=== PATIENT | male | born 1935 | race Caucasian/White ===

== ENCOUNTER → 2019-10-18 12:45 | Outpatient (BNVA) | payer MEDICARE, SELFPAY | PROVIDERS: Family Provider Registered Nurse; PCP Registered Nurse; Visit Provider Nurse Practitioner Family | DX: I10 Essential (primary) hypertension (principal); I50.22 Chronic systolic (congestive) heart failure; R00.1 Bradycardia, unspecified | CPT/HCPCS: 80048; 83880 ==

== ENCOUNTER → 2019-12-16 05:51 | Day surgery (SDC) | payer MEDICARE, SELFPAY ==
[2019-12-16] MEDS: diazePAM 5 mg Tablet 10 MG PO (06:27)
[2019-12-16 06:30] VITALS: BP 145/84; PULSE 93; RESP 16; TEMP 37; O2SAT 95
--- NOTE | 2019-12-16 07:04 | W.PM.OPSUD ---
Surgery/Procedure H&P Update DATE OF PROCEDURE: December 16, 2019 DATE H&P PERFORMED: 11/08/19 H&P UPDATE INFORMATION: I have reviewed H&P completed within last 30 days, I have examined patient prior to procedure and No changes to prior documentation PREOP DIAGNOSIS: Symptomatic varicose veins with CEAP C4a, failed conservative managment PLANNED PROCEDURE: Operation Date: 12/16/19 07:00 Proposed Procedures p Venous Ablations(Not Applicable) - Samantha Alexis MD PHYSICAL EXAM: alert, oriented x 3 and clear to auscultation bilaterally ADDITIONAL INFORMATION: This procedure doest not require sedation
[2019-12-16 08:26] VITALS: BP 136/82; PULSE 90; RESP 14; TEMP 37; O2SAT 96
--- NOTE | 2019-12-16 08:34 | P.PCN_ITS ---
Procedure Note: Date of procedure: 12/16/19 Pre-procedure diagnosis: Symptomatic varicose veins with chronic venous insufficiency/recurrent cellulitis Other Information: The insufficient saphenous vein left GSV verified by ultrasound and diagrammed on the overlying skin. The varicose tributary veins and suitable access sites were identified and mapped. The affected area prepped and draped in the usual sterile fashion. The patient was placed in reverse Trendelenburg position. Tumescent was instilled in the skin overlying the access site for local anesthesia. The vein was accessed PROXIMAL, MID, DISTAL - THIGH/CALF using ultrasound guidance and the Seldinger technique, a guidewire was introduced through the needle, which was then exchanged over the guidewire for a 7F sheath. The RF catheter was placed on the sterile field, flushed and wiped down, prepared, and connected by a sterile cable. The patient was placed in Trendelenburg position. After RF catheter position was verified by ultrasound, tumescent anesthesia was infiltrated, under ultrasound guidance, precisely into the perivenous compartment along the entire length of vein. After the RF catheter position was again confirmed with ultrasound imaging, and under direct external compression along the length of the heating element, RF energy was applied. The vein was segmentally ablated until the treatment length is completed. Device temperature was maintained at 120 +/- degrees C with an initial power level of 40W dropping to below 20W for each treatment. Total vein length treated 53 cm. . Total cycles of RF 12. Time 4 minutes and 20 seconds. Repeat ultrasound of the left great saphenous vein was performed, confirming successful treatment. The catheter and sheath were withdrawn and hemostasis established with direct pressure. After assuring hemostasis, the skin incision over the saphenous vein was closed with a bandage and graduated compression stockings was applied from the level of the foot to the most proximal length of the thigh. 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
--- NOTE | 2019-12-29 18:03 | W.PM.OPSFHP ---
Same Day Surgery H&P Indication for Procedure/HPI DATE OF PROCEDURE: December 16, 2019 CHIEF COMPLAINT/INDICATIONFOR SURGICAL PROCEDURE: Varicose vein symptomatic, venous insufficiency, failed conservative management PREOP DIAGNOSIS: Symptomatic varicose veins with CEAP C4a, failed conservative managment PLANNED PROCEDRUE: Operation Date: 12/16/19 07:00 Proposed Procedures p Venous Ablations(Not Applicable) - Samantha Alexis MD Medications/Allergies* Home Medications Medication Instructions Recorded Confirmed Type acetaminophen 325 mg tablet 650 mg PO QID PRN 05/07/19 12/15/19 History aspirin 325 mg tablet 325 mg PO DAILY tab 05/07/19 12/15/19 History ferrous gluconate 324 mg (38 mg 324 mg PO DAILY tab 05/07/19 12/15/19 History iron) tablet ivrxglwlerf-mrr-ehmobavpq-hrb tab PO DAILY tab 05/07/19 11/08/19 History 149-hyalur 500 mg-500 mg-66.7 mg tablet multivitamin 1 tab PO QAM 05/07/19 12/15/19 History naproxen sodium 220 mg tablet 220 mg PO BID PRN 05/07/19 12/15/19 History omega-3 fatty acids 1,000 mg 1,000 mg PO DAILY cap 05/07/19 12/15/19 History capsule furosemide 40 mg tablet 40 mg PO DIRECTED tab 11/08/19 12/15/19 History Allergies/Adverse Reactions Allergy/AdvReac Type Severity Reaction Status Date / Time lisinopril Allergy Unknown swelling Verified 12/16/19 06:50 spironolactone Allergy Unknown abdominal Verified 12/16/19 06:50 pain Pertinent History/Comorbid Conditions* Medical History (Updated 11/10/19 @ 18:52 by Samantha Alexis MD) Bradycardia by electrocardiography Chronic atrial fibrillation. Congestive heart failure (Unknown) The LV ejection fraction was 38% by echocardiogram Coronary artery disease Hypertension Varicose veins of bilateral lower extremities with other complications Surgical History (Updated 05/07/19 @ 12:15 by Rosa Maria Sargent MD) History of appendectomy History of hernia repair Family History (Updated 05/06/19 @ 15:16 by Stacy Ravi RN) Diabetes Social History Smoking and tobacco status: former smoker Alcohol intake: never Pertinent Exam Findings alert, oriented x 3, clear to auscultation bilaterally, regular rate & rhythm and operative site marked Recommendations Surgery/Procedure today Coding Level of Care Code 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
== END | disposition home or self-care (01) ==
PROVIDERS: PCP Registered Nurse; Visit Provider Internal Medicine Cardiovascular Disease
DX: I83.892 Varicose veins of left lower extremity with other complications (principal); I87.2 Venous insufficiency (chronic) (peripheral); R00.1 Bradycardia, unspecified; I27.20 Pulmonary hypertension, unspecified; I34.0 Nonrheumatic mitral (valve) insufficiency; Z79.82 Long term (current) use of aspirin; I11.0 Hypertensive heart disease with heart failure; I50.9 Heart failure, unspecified; I48.91 Unspecified atrial fibrillation; Z87.891 Personal history of nicotine dependence
CPT/HCPCS: 12345; 36475; C1769; C1888; C1894; J7040; J7050

== ENCOUNTER 2019-12-23 10:11 | Outpatient (CLI) | payer MEDICARE, SELFPAY ==
--- NOTE | 2019-12-23 11:00 | USCV_ITS ---
Jose Farias Age: 84 Gender: M : 1935 Exam Date: 12/23/2019 10:31 Ordering Phys: Samantha Alexis MD ([email or web address]) Technologist: Anson Monique [place] [facility] [place]: FOLLOW UP LT LEG VENOUS ABLATION HISTORY: POST ABLATION PROCEDURES: The venous duplex Doppler examination of both lower extremities was performed in the standard fashion. The following venous structures were evaluated: common femoral vein, profunda vein, proximal portion of the greater saphenous vein, superficial femoral vein, and the popliteal vein. In addition, the posterior tibial and peroneal trunk were evaluated. FINDINGS: NO DVT LT LEG NORMAL POST ABLATION STUDY ON LT. GOOD FLOW IN THE LT EPIGSTRIC COMPLETE OCCUSION OF LT GSAPH FROM PROX DOWN TO KNEE. NO DVT Echolucent spaces were noted in the lower leg in the subcutaneous tissue CONCLUSIONS No evidence of DVT in the above-mentioned identifiable veins on the left side. Patent saphenofemoral junction Patency of the inferior epigastric vein is not documented- reported as patent by the technologist The greater saphenous vein is ablated Features of fluid retention/edema in the lower leg Dr Rosa Maria Sargent MD [facility] (Electronically Signed) Final Date: 24 December 2019 15:30 S
== END 2019-12-23 10:12 | disposition home or self-care (01) ==
LOC: US 10:14
PROVIDERS: PCP Registered Nurse; Visit Provider Internal Medicine Cardiovascular Disease
DX: I83.893 Varicose veins of bilateral lower extremities with other complications (principal)
CPT/HCPCS: 93970

== ENCOUNTER → 2020-01-25 15:28 | Outpatient (BNVA) | payer MEDICARE, SELFPAY | PROVIDERS: PCP Registered Nurse; Visit Provider Orthopaedic Surgery | DX: M25.562 Pain in left knee (principal) | CPT/HCPCS: 73560; 73565 ==

== ENCOUNTER → 2020-03-17 15:30 | Outpatient (BNVA) | payer MEDICARE, SELFPAY | PROVIDERS: PCP Registered Nurse; Visit Provider Orthopaedic Surgery | DX: Z01.812 Encounter for preprocedural laboratory examination (principal); Z20.828 Contact with and (suspected) exposure to other viral communicable diseases; Z11.59 Encounter for screening for other viral diseases | CPT/HCPCS: 87635 ==

== ENCOUNTER 2020-03-21 13:58 | Observation (INO) | payer MEDICARE, SELFPAY ==
[2020-03-21] VITALS (13 sets, daily range): BP systolic 122–156; BP diastolic 67–102; PULSE 56–97; RESP 10–27; TEMP 36.1–36.8; O2SAT 90–97; BMI 31.1
--- NOTE | 2020-03-21 06:12 | XR_ITS ---
WS: [id number] Exam: XR chest 1V portable [id number] Date/Time of Exam: 03/21/2020 6:12 AM Reason For Exam: pre pacemaker insertion No priors. The heart is enlarged. Pulmonary vascularity slightly increased. Slightly blunted right costophrenic angle may represent pleural thickening or trace pleural effusion. The lungs are fully inflated. There may be a hiatal hernia present. The mediastinum and bony thorax are unremarkable. XR/XR chest 1V portable [id number] IMPRESSION: 1. Cardiac enlargement with slightly increased pulmonary vascularity. 2. Questionable hiatal hernia.
--- NOTE | 2020-03-21 07:35 | PC.NURSE ---
note Dr Sargent's office did not notify rep of pacemaker insertion. Rep called and agreed to be here at noon. Patient and daughter have been notified of change. Pt to remain down in CPRU til noon appointment.
--- NOTE | 2020-03-21 08:11 | ECG_ITS ---
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 Measurements Intervals [place] Rate: 55 P: DE: -1 QRS: -54 QRSD: 156 T: 102 QT: 467 QTc: 449 Interpretive Statements ATRIAL FIBRILLATION WITH SLOW VENTRICULAR RESPONSE WITH ABERRANT CONDUCTION OR VENTRICULAR PREMATURE COMPLEXES MARKED LEFT AXIS DEVIATION [QRS AXIS < -30] RIGHT BUNDLE BRANCH BLOCK MODERATE T-WAVE ABNORMALITY, CONSIDER LATERAL ISCHEMIA Compared to ECG 03/06/2020 09:35:08 Aberrant conduction of supraventricular beat(s) now present Myocardial infarct finding now present Sinus rhythm no longer present T-wave abnormality still present Possible ischemia still present Electronically Signed On 03-21-2020 21:53:04 LIGHTING DESIGNER by Mary Ellen Saez M.D. [email or web address] ([email or web address]).[email or web address] IncTitanX Engine Coolinghenry [email or web address].[employer]/store/OM/[id number]
--- NOTE | 2020-03-21 08:55 | W.PM.OPSUD ---
Surgery/Procedure H&P Update DATE OF PROCEDURE: March 21, 2020 DATE H&P PERFORMED: 03/16/20 H&P UPDATE INFORMATION: I have reviewed H&P completed within last 30 days, I have examined patient prior to procedure and No changes to prior documentation PREOP DIAGNOSIS: Atrial fibrillation with a symptomatic bradycardia PRIMARY INDICATION FOR PROCEDURE: Symptomatic bradycardia PLANNED PROCEDURE: Operation Date: 03/21/20 07:00 Proposed Procedures p Pacemaker Insertion R00.1 I45.8 69102(Not Applicable) - Rosa Maria Sargent MD PATIENT REASSESSED PRIOR TO SEDATION, WITH NO CHANGE NOTED: Yes PHYSICAL EXAM: alert, clear to auscultation bilaterally and regular rate & rhythm (Irregularly irregular rate and rhythm) OTHER PERTINENT EXAM FINDINGS: Alert and oriented x3. Lungs are clear. Vital signs stable. No signs of infection at the pacemaker insertion site. First heart sound is variable. Second heart sound is normal. AIRWAY EVAL/ANESTHESIA PLAN: normal airway, ASA III, Monitored Anesthesia, Local Anesthesia, Risks, benefits & alternatives of sedation and/or procedure discussed and Patient agrees to continue as planned
--- NOTE | 2020-03-21 09:08 | USCV_ITS ---
MartinanathanielJose cook Age: 84 Gender: M : 1935 Exam Date: 03/21/2020 09:18 Ordering Phys: Rosa Maria Sargent MD ([email or web address]) Technologist: Paul Robb [place] [facility] [place] PRE PACER PLACEMENT BP: 142 / 102 HR: 63 Rhythm: Sinus Technical Quality: Adequate MEASUREMENTS (Male / Female) Normal Values 2D ECHO LV Diastolic Diameter PLAX 6.2 cm 4.2 - 5.9 / 3.9 - 5.3 cm LV Systolic Diameter PLAX 5.1 cm LV Chamber Size 4.8 cm IVS Diastolic Thickness 1.5 cm 0.6 - 1.0 / 0.6 - 0.9 cm IVS Systolic Thickness 2.2 cm LVPW Diastolic Thickness 1.3 cm 0.6 - 1.0 / 0.6 - 0.9 cm LVPW Systolic Thickness 1.4 cm RV Chamber Size 4.9 cm LVOT Diameter 2.0 cm LV Ejection Fraction 2D Teich 35.4 % LV Ejection Fraction MOD 2C 56.1 % LV Ejection Fraction 2C AL 61.5 % LA Diameter 4.3 cm LA Width 4.4 cm LA Height 6.3 cm RA Width 5.7 cm RA Height 5.7 cm Aorta at Sinotubular Diameter 3.6 cm M-MODE LV Diastolic Diameter MM 6.5 cm 4.2 - 5.9 / 3.9 - 5.3 cm LV Systolic Diameter MM 5.4 cm LV Ejection Fraction MM Teich 34.9 % IVS Diastolic Thickness MM 1.3 cm 0.6 - 1.0 / 0.6 - 0.9 cm IVS Systolic Thickness MM 1.8 cm LVPW Diastolic Thickness MM 1.3 cm 0.6 - 1.0 / 0.6 - 0.9 cm LVPW Systolic Thickness MM 1.4 cm RV Diastolic Diameter MM 2.5 cm Aortic Annulus Diameter 3.4 cm LA Ao Ratio MM 1.6 MV E Point Septal Separation 1.4 cm DOPPLER TR Peak Velocity 330.5 cm/s TR Peak Gradient 43.7 mmHg TR Mean Velocity 225.4 cm/s TR Mean Gradient 23.2 mmHg TR Velocity Time Integral 113.6 cm Right Atrial Pressure 3.0 mmHg Pulmonary Artery Systolic Pressu 46.7 mmHg FINDINGS Left Ventricle Mildly increased left ventricular cavity size. Diffuse hypokinesia of the left ventricle with an ejection fraction around 39% Right Ventricle Normal right ventricular size and systolic function. Right Atrium Mildly increased right atrial size. Left Atrium Mildly increased left atrial size. Mitral Valve Thickened mitral valve. Moderate mitral valve regurgitation. Aortic Valve Thickened aortic valve. Tricuspid Valve Afbc-yo-msqbcfxh tricuspid valve regurgitation. Pulmonic Valve Trace pulmonary valve regurgitation. Mild pulmonary hypertension with an estimated pulmonary artery peak systolic pressure of 47 mmHg Pericardium No pericardial effusion. Aorta Normal aortic annulus size. CONCLUSIONS Diffuse hypokinesia of the left ventricle with an ejection fraction around 39%. Mildly increased left ventricular cavity size. Mild biatrial enlargementThickened mitral valve. Moderate mitral valve regurgitation. Thickened aortic valve. Uhug-or-elobtxsj tricuspid valve regurgitation. Mild pulmonary hypertension with an estimated pulmonary artery peak systolic pressure of 47 mmHg. There is no pericardial effusion. There are no intracardiac masses. Compared to the study from 10/29/2018, there may not be a significant change Dr Rosa Maria Sargent MD FAC (Electronically Signed) Final Date: 21 March 2020 17:43 S
--- NOTE | 2020-03-21 13:32 | PM.OP ---
Operative Report Date of procedure: March 21, 2020 Pre-op Diagnosis: Atrial fibrillation with a symptomatic bradycardia Procedure: LOCATION: Cardiac Drilling Field Professional PREOPERATIVE DIAGNOSES: Atrial fibrillation with a symptomatic bradycardia. POSTOPERATIVE DIAGNOSES: Same. COMPLICATIONS: None. ESTIMATED BLOOD LOSS: Around 5 milliliters. BRIEF HISTORY: This is an 84-year-old white male with a history of chronic atrial fibrillation presents with complaints of generalized weakness along with multiple other medical issues. He is known to have congestive heart failure and mitral and tricuspid regurgitation. He was found to be bradycardic with a frequent prolonged pauses of more than 3 seconds on the event monitor. For further management of his condition, permanent pacemaker mentation was recommended. A single-chamber permanent pacemaker implantation was thought to be appropriate because of the chronic atrial fibrillation The procedure was explained to the patient in detail with the risks and benefits. The risks of bleeding, hematoma, vascular injury, infection, pneumothorax, myocardial perforation and other concomitant complications were explained in detail, which the patient understood well and consented to proceed. PROCEDURE DESCRIPTION: The patient was brought to the Cardiac Catheterization Lab. The left and the right side of the neck and the subclavian area were cleaned and draped in a sterile fashion. 1% Xylocaine was used as the local anesthetic agent. A left subclavian venous access was obtained using a micropuncture needle system. Under venographic guidance, the patient was injected with 20 milliliters of Omnipaque through the left antecubital vein. A two-inch long incision was made 2.0 centimeters below the midclavicular region. By sharp and blunt dissection, a pacemaker pocket was made. Over the guidewire, a 7-Citizen Of [place] venous sheath with dilator was advanced. The venous dilator and the guidewire were taken out. A screw-in ventricular lead was advanced through the venous sheath and was positioned towards the right ventricle. Under fluoroscopy guidance, the ventricular lead was positioned toward the right ventricular apex. Good pacing and sensing thresholds were obtained. The lead was secured to the endocardium by advancing the helix. The stability of the lead was tested by gentle twisting movements and also by asking the patient to take some deep breaths and cough. The venous sheath was peeled off, at this time. The lead was secured to the pectoralis fascia, by suturing with 1-0 Surgilon. The pacemaker pocket was copiously irrigated with vancomycin solution. Complete hemostasis was achieved. Sponge counts were confirmed. The leads were attached to a Medtronic generator. The leads were positioned behind the generator and the generator was attached to the pectoralis fascia by suturing with 0-Surgilon. The pocket was closed in layers. Skin was approximated using 4-0 Vicryl. IMPLANTED DEVICES: VENTRICULAR LEAD: Model number: 5076/58 Serial number: [id number](MR conditional) Make: Medtronic GENERATOR Brand: Elsie XT SR MRI SureScan Model number: [id number] Serial number: [id number] Make: Medtronic IMPLANTATION DATA: With the pacing system analyzer, the R wave sensing was 10.1 millivolts with a lead impedance of 745 and a pacing threshold was 1.0 volts at 0.5 milliseconds. Through the device, the R-wave sensing was 7.4 millivolts with a lead impedance of 570 and a pacing threshold was 0.5 volts at 0.4 milliseconds. The pacemaker was set for VVI mode with a minimum rate of 60 A pressure dressing was applied over the pacemaker site. The patient was transferred to the Medical Floor in stable condition. A chest x-ray was ordered to confirm the lead position and also to rule out any pneumothorax.
--- NOTE | 2020-03-21 14:00 | PC.NURSE ---
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 Pt alert and oriented. Eye glasses, upper and lower dentures and bial hearing aides noted. Pt is hard of hearing. Pressure dressing C, D and I. Shoulder Immobilizer on. Two peripheral IVs noted. Left upper arm (near elbow) and Right wrist. NS infusing into right wrist without difficulty.
[2020-03-21] MEDS: FUROsemide 40 mg Tablet PO (15:56)
[2020-03-21] MEDS: potassium chloride ER 20 mEq Tablet PO (17:42)
--- NOTE | 2020-03-21 18:39 | PC.NURSE ---
Shift summary: Pt post pacemaker implant. VSS . He has remained on bedrest as ordered. NO c/o of pain Shoulder immobilizer has remained on. Daughter, Juany, came to visit at visiting hours.. Pt has spent most of the afternoon resting with eyes closed after he had a late lunch. He voids without difficulty.
--- NOTE | 2020-03-21 18:47 | PC.NURSE ---
Report given to ALEXANDRIA Mcclelland
--- NOTE | 2020-03-21 19:55 | PC.NURSE ---
Rounding: Patient resting in bed shoulder immbolizer in place. patient alert and oriented. patient denies any needs at this time.
[2020-03-22 00:17] VITALS: BP 140/84; PULSE 60; RESP 15; TEMP 36.6; O2SAT 94
[2020-03-22] MEDS: sodium chloride 0.9% 1,000 ML 75 ML IV ×2 (01:35→08:09)
--- NOTE | 2020-03-22 04:08 | PC.NURSE ---
Called Dr. Alexis about patient attempting to use a bed isaac to have a BM with no success. Patient had requested just to get up to use a bedside commode. Dr. Alexis said it was ok to get patient up so he could use the the bathroom just keep his immobilizer in place. read back verbal order.
--- NOTE | 2020-03-22 04:36 | PC.NURSE ---
Pacemaker check completed
[2020-03-22 04:37] VITALS: BP 118/74; PULSE 134; RESP 19; TEMP 36.8; O2SAT 91
--- NOTE | 2020-03-22 06:00 | ECG_ITS ---
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: : 1935 Requested By: Rosa Maria Sargent Order Number: [id number] Reading MD: CHRISTINA PENNY Measurements Intervals [place] Rate: 69 P: [place]: QRS: -74 QRSD: 188 T: 88 QT: 435 QTc: 468 Interpretive Statements ELECTRONIC VENTRICULAR PACEMAKER ABNORMAL RHYTHM ECG WARNING: DATA QUALITY MAY AFFECT INTERPRETATION Compared to ECG 03/21/2020 08:18:41 Atrial fibrillation no longer present Aberrant conduction of supraventricular beat(s) no longer present Ventricular premature complex(es) no longer present Left-axis deviation no longer present Right bundle-branch block no longer present T-wave abnormality no longer present Possible ischemia no longer present Electronically Signed On 03-22-2020 19:40:05 REFLECTOR DRILLER AND DEBURRER by CHRISTINA PENNY [id number]
--- NOTE | 2020-03-22 06:29 | PC.NURSE ---
Called Dr. Alexis about patient having sustaining runs of Afib. went over home medications and vital signs. Orders received for metoprolol 12.5 mg BID and first dose now. read back verbal order.
[2020-03-22] MEDS: metoprolol tartrate 25 mg Tablet 12.5 MG PO (06:33)
--- NOTE | 2020-03-22 06:36 | PC.NURSE ---
heartrate running 115 to 130's sustained in afib
[2020-03-22 08:00] VITALS: BP 110/88; PULSE 60; RESP 26; TEMP 36.1; O2SAT 94
[2020-03-22] MEDS: aspirin 325 mg Tablet PO (08:08)
[2020-03-22] MEDS: omega-3 fatty acids 1,000 mg Capsule 1000 MG PO (08:08)
[2020-03-22] MEDS: amlodipine 5 mg Tablet PO (08:09)
[2020-03-22] MEDS: multivitamin therapeutic Tablet 1 TAB PO (08:09)
[2020-03-22] MEDS: potassium chloride ER 20 mEq Tablet PO (08:09)
[2020-03-22] MEDS: ferrous gluconate 324 mg Tablet PO (08:09)
[2020-03-22] MEDS: FUROsemide 40 mg Tablet PO ×2 (08:09→16:09)
--- NOTE | 2020-03-22 08:48 | XR_ITS ---
WS: [id number] Exam: XR chest 1V portable [id number] Date/Time of Exam: 03/22/2020 8:48 AM Reason For Exam: Post pacemaker Comparison 03/21/2020. Consolidating infiltrate has developed in the left retrocardiac region since the previous study. The heart is enlarged but unchanged in size. Again noted is probable hiatal hernia. No pleural effusions or pneumothorax. Pulmonary vascularity mildly increased. A cardiac pacer has been placed with the bat addy pack over the left chest. XR/XR chest 1V portable [id number] IMPRESSION: 1. Interval development of the infiltrate in the left retrocardiac region suspi cious for left lower lobe pneumonia. 2. Cardiac pacer placement since previous exam. 3. Suspect large hiatal hernia.
[2020-03-22 10:57] VITALS: BP 125/80; PULSE 59; RESP 24; TEMP 36.3; O2SAT 95
[2020-03-22 11:32] VITALS: BP 125/80; PULSE 59; RESP 24; TEMP 36.3; O2SAT 95
--- NOTE | 2020-03-22 13:28 | PC.CHAP ---
Pastoral Care Encounter/Spiritual Assessment Type of Contact [] Declined weathercaster visit [] Patient/Family/Request visit [] Outpatient visit [] Follow-up visit [] Physician referral [] Code/Alert [X] Routine visit [] Staff referral [] Actively dying [] Patient sleeping [] Family support [] [] Out of room [] Palliative care [] [] Receiving care in room [] Pre-surgical visit [] Trauma [] Long length of stay [] ICU visit [] Other: Relational/Emotional Strength [] Patient feels connected with others/family/visitors/staff [] Distress [] Loneliness/isolation [] Abandonment Spirituality of Patient [] Person of Coco [] Attends Christian of their Coco [] Believes in Prayer [] Reads Bible or Voodoo materials [] There are Spiritual issues to be addressed Ux Developer Designer Interventions [] Prayer [] Active listening [] Non-anxious presence [] Spiritual/emotional support [] Crisis/trauma care [] Spiritual counseling [] Bereavement support [] Provided bereavement packet [] Provided Bible/devotional materials [] Provided toy/stuffed animal, coloring book to patient or family member [] Provided Communion [] Anointing/[place] [] Salvation [] Completed spiritual assessment [] Other: Impact on Illness or Injury [] Angry [] Fearful [] Anxious [] Often cries [] Exhaustion [] Unable to work [] Unable to attend pentecostal [] Unable to walk/stand [] Unable to read [] Unable to drive [] Unable to eat/drink [] Unable to sleep [] Unable to be with family [] Patient intubated [] Other: Summary Time spent with patient
--- NOTE | 2020-03-24 19:18 | W.PM.OPSUD ---
Surgery/Procedure H&P Update DATE OF PROCEDURE: March 21, 2020 DATE H&P PERFORMED: 03/16/20 H&P UPDATE INFORMATION: I have reviewed H&P completed within last 30 days, I have examined patient prior to procedure and No changes to prior documentation PREOP DIAGNOSIS: Atrial fibrillation with a symptomatic bradycardia PLANNED PROCEDURE: Operation Date: 03/21/20 07:00 Proposed Procedures p Pacemaker Insertion R00.1 I45.8 [id number](Not Applicable) - Rosa Maria Sargent MD PATIENT REASSESSED PRIOR TO SEDATION, WITH NO CHANGE NOTED: Yes PHYSICAL EXAM: alert and clear to auscultation bilaterally AIRWAY EVAL/ANESTHESIA PLAN: normal airway, see other exam findings, ASA II, Monitored Anesthesia, Local Anesthesia, Risks, benefits & alternatives of sedation and/or procedure discussed and Patient agrees to continue as planned
== END 2020-03-22 16:50 | disposition home or self-care (01) ==
LOC: CSU 14:00
PROVIDERS: Admitting Provider Internal Medicine Cardiovascular Disease; PCP Registered Nurse; Visit Provider Internal Medicine Cardiovascular Disease
DX: I48.20 Chronic atrial fibrillation, unspecified (principal); I45.10 Unspecified right bundle-branch block; R00.1 Bradycardia, unspecified; Z79.82 Long term (current) use of aspirin; I25.10 Atherosclerotic heart disease of native coronary artery without angina pectoris; Z87.891 Personal history of nicotine dependence; I11.0 Hypertensive heart disease with heart failure; I50.9 Heart failure, unspecified
CPT/HCPCS: 12345; 33207; 36415; 71045; 93005; 93308; 96361; 96365; 97166; C1769; C1786; C1894; C1898; G0378; J0690; J2250; J3010; J7030; J7050; Q9967

== ENCOUNTER → 2020-05-23 15:49 | Outpatient (BNVA) | payer MEDICARE, SELFPAY | PROVIDERS: PCP Registered Nurse; Visit Provider Orthopaedic Surgery | DX: R52 Pain, unspecified (principal); Z11.59 Encounter for screening for other viral diseases | CPT/HCPCS: 87635 ==

== ENCOUNTER 2020-05-29 12:22 | Observation (INO) | payer MEDICARE, SELFPAY ==
[2020-05-15 13:31] VITALS: BMI 29.7
--- NOTE | 2020-05-15 14:17 | ANES.PREANE2 ---
Pre-Anesthetic Assessment Pre-Anesthetic Assessment: Height/Weight: Height 1.8 m Weight 96.615 kg Preop Diagnosis: Osteoarthritis left knee Proposed Procedure: Operation Date: 05/29/20 10:40 Proposed Procedures p right Total Knee Arthroplasty 54328 m17.12(Right) - Salvador Jurado MD Was Beta Debra taken within 24 hours: N/A Social: Social History: No alcohol and No tobacco Exam: Pre-Anes Outpt Exam: alert, oriented x 3, clear to auscultation bilaterally and regular rate & rhythm Airway: Submandibular: WNL Cervical ROM: WNL MP: 2 Dentition: False CV/HEM: CV/HEM: Arrythmia, CHF, HTN and Murmur Comments: Pacemaker, MR, Pulmonary HTN : : Chronic renal Insufficiency Hepatic: Hepatic: None reported GI: GI: None reported Metabolic: Metabolic: Hyperlipidemia Musc/skel: Musc/skel: OA/DJD Neuropsych: Neuropsych: None reported Anesthetic Plan: ASA status: 4 Anesthesia: Regional (specify below) Other: SAB/adductor blk Risk of > 500 ml blood loss (7ml/kg in children): No PFSH Anesthesia PFSH: Medical History Bradycardia by electrocardiography Chronic atrial fibrillation. Congestive heart failure (Unknown) The LV ejection fraction was 38% by echocardiogram Coronary artery disease Hypertension Symptomatic bradycardia Varicose veins of bilateral lower extremities with other complications Surgical History History of appendectomy History of hernia repair Family History Other Diabetes Social History Smoking and tobacco status: former smoker Alcohol intake: never Data Anesthesia Cardiac Studies: No Data to Display
[2020-05-15 15:13] LABS: Basophils % 0.5 %; Eosinophils # 0.4 10^3/uL (0.0-0.8); Eosinophils % 6.2 %; Hematocrit 38.6 % (42.0-52.0); Hemoglobin 11.8 g/dL (11.7-16.6); Lymphocytes % 17.2 %; Mean Corpuscular HGB Conc 30.6 g/dL (30.0-36.0); Mean Corpuscular Hemoglobin 31.6 pg (28.0-34.0); Mean Corpuscular Volume 103.5 fL (80-94); Mean Platelet Volume 11.3 fL (7.4-10.4); Monocytes # 0.7 10^3/uL (0.2-0.9); Monocytes % 11.2 %; Neutrophils # 3.89 10^3/uL (1.8-7.7); Neutrophils % 64.7 %; Nucleated Red Blood Cells % 0 %; Platelet Count 173 10^3/cmm (130-400); Red Blood Count 3.73 10^6/uL (4.1-5.3); Red Cell Distribution Width 13.4 % (12.1-15.1)
[2020-05-15 15:38] LABS: Alanine Aminotransferase 33 U/L (0-41); Albumin Level 3.6 g/dL (3.5-5.2); Alkaline Phosphatase 101 IU/L (40-130); Anion Gap 11.9 (5-19); Aspartate Amino Transferase 25 U/L (0-40); Blood Urea Nitrogen 27 mg/dL (8-23); Calcium 9.3 mg/dL (8.5-10.5); Carbon Dioxide 29 mmol/L (22-29); Chloride 107 mmol/L (98-107); Globulin 2.7 g/dL (1.3-4.6); Glucose 94 mg/dL (65-115); Osmolality Calculated 303 mOsm/kg (285-295); Potassium 3.9 mmol/L (3.5-5.1); Sodium 144 mmol/L (136-145); Total Bilirubin 0.7 mg/dL (0.15-1.2); Total Protein 6.3 g/dL (6.6-8.7)
[2020-05-29] VITALS (17 sets, daily range): BP systolic 90–169; BP diastolic 49–93; PULSE 59–74; RESP 10–22; TEMP 35.8–37.1; O2SAT 88–99
--- NOTE | 2020-05-29 | XR_ITS ---
WS: [id number] Exam: XR knee LT 1-2V 76979 Date/Time of Exam: 05/29/2020 12:00 AM Reason For Exam: POST OP Comparison 01/25/2020. A total knee prosthesis is been placed and is in excellent position. Postoperative changes in the adj acent soft tissues. XR/XR knee LT 1-2V 20055 IMPRESSION: 1. Total knee replacement in excellent position.
[2020-05-29] MEDS: oxyCODONE 20 mg ER (12 HR) Tablet PO (08:01)
[2020-05-29] MEDS: sodium chloride 0.9% 1,000 ML 30 ML IV (08:01)
[2020-05-29] MEDS: CELEcoxib 200 mg Capsule 400 MG PO (08:02)
[2020-05-29] MEDS: gabapentin 300 mg Capsule PO ×2 (08:03→18:02)
[2020-05-29] MEDS: acetaminophen 500 mg Tablet 1000 MG PO ×2 (08:03→15:34)
--- NOTE | 2020-05-29 08:35 | P.ANESUD_ITS ---
Pre-Anesthetic Update Pre-Anesthetic Assessment: Date of Surgery/Procedure: 05/29/20 Preop Vanesa gnosis: Osteoarthritis left knee Proposed Procedure: Operation Date: 05/29/20 09:35 Proposed Procedures p Total Knee Arthroplasty(Left) - Salvador Jurado MD Any changes to Pre-Anesthetic Assessment?: No Last Intake: Intake Last Liquid Date 05/28/20 Last Liquid Time 18:00 Last Solid Date 05/28/20 Last Solid Time 18:00 Last Intake: 00:00 Vitals: Temperature 98.7 F 05/29/20 07:38 Temperature Source Temporal Artery S can 05/29/20 07:38 Pulse Rate 74 05/29/20 07:38 Pulse Rhythm 05/29/20 07:45 Pulse Strength 3+ Normal 05/29/20 07:45 Respiratory Rate 18 05/29/20 08:01 Respiratory Effort 05/29/20 08:01 Respiratory Depth Normal 05/29/20 08:01 Blood Pressure 169/93 05/29/20 07:38 Blood Pressure Martha n 118 05/29/20 07:38 Pulse Oximetry 95 05/29/20 07:38 Oxygen Delivery Me thod 05/29/20 07:45 Exam: Pre-Anes Outpt Exam: alert, oriented x 3, clear to auscultation bilaterally and regular rate & rhythm Cardiac Studies: No Data to Display
--- NOTE | 2020-05-29 09:29 | W.PM.OPSFHP ---
Same Day Surgery H&P Indication for Procedure/HPI DATE OF PROCEDURE: May 29, 2020 CHIEF COMPLAINT/INDICATIONFOR SURGICAL PROCEDURE: Osteoarthritis left knee there for total knee arthropod PREOP DIAGNOSIS: Osteoarthritis left knee PLANNED PROCEDRUE: Operation Date: 05/29/20 09:35 Proposed Procedures p Total Knee Arthroplasty(Left) - Salvador Jurado MD Mr. Tinsley is an 85-year-old male with severe pain and disability due to osteoarthritis of the left knee. He has had multiple falls as a result pain and instability in his knee. He has failed medical management including Tylenol and anti-inflammatories. He has undergone an extensive preoperative clearance work-up ultimately leading to a pacemaker placement. He has been cleared by cardiology is now here for total knee arthroplasty Medications/Allergies* Home Medications Medication Instructions Recorded Confirmed Type acetaminophen 325 mg tablet 650 mg PO QID PRN 05/07/19 05/29/20 History ferrous gluconate 324 mg (38 mg 324 mg PO DAILY tab 05/07/19 05/29/20 History iron) tablet iarxfmqvrrn-pqs-ndyqbqdfs-hrb 1 tab PO DAILY tab 05/07/19 05/29/20 History 149-hyalur 500 mg-500 mg-66.7 mg tablet multivitamin 1 tab PO QAM 05/07/19 05/29/20 History naproxen sodium 220 mg tablet 220 mg PO BID PRN 05/07/19 05/29/20 History omega-3 fatty acids 1,000 mg 1,000 mg PO DAILY cap 05/07/19 05/29/20 History capsule Metamucil 1 tbsp PO DAILY 03/06/20 05/29/20 History furosemide 40 mg tablet 20 mg PO BID tab 03/29/20 05/29/20 History latanoprost 0.005 % eye drops 1 drp OPHTHALMIC (EYE) DAILY 03/29/20 05/29/20 History amlodipine 5 mg PO DAILY 05/15/20 05/29/20 History aspirin 325 mg tablet 81 mg PO DAILY tab 05/16/20 05/29/20 History Allergies/Adverse Reactions Allergy/AdvReac Type Severity Reaction Status Date / Time lisinopril Allergy Unknown swelling Verified 05/29/20 07:30 spironolactone Allergy Unknown abdominal Verified 05/29/20 07:30 pain Current Medications: Generic Name Dose Route Start Last Admin Trade Name Freq PRN Reason Stop Dose Admin Sodium Chloride 1,000 mls @ 30 mls/hr 05/29/20 07:30 05/29/20 08:01 Sodium Chloride 0.9% IV 05/30/20 07:29 30 mls/hr .Q24H VITALY Administration Pertinent History/Comorbid Conditions* Medical History (Updated 03/13/20 @ 18:32 by Samantha Alexis MD) Bradycardia by electrocardiography Chronic atrial fibrillation. 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
[2020-05-29] MEDS: ketorolac 30 mg/mL INJ IM (11:02)
[2020-05-29] MEDS: EPINEPHrine 1 mg/mL INJ XX (11:03)
[2020-05-29] MEDS: tranexamic acid 1,000 mg/10mL SDV 1000 MG IRRIGATION (11:06)
--- NOTE | 2020-05-29 12:18 | ANES.PROC ---
Anesthesia Procedures Procedure/Date: 05/29/20 Nerve Block ^: Nerve Block 1: Main Anesthesia: spinal anesthesia block Time Out Performed: Yes Consent: requested by attending/covering physician, from patient, risks and benefits reviewed and patient agrees to proceed Nerve block location: adductor canal (left) Anesthesia monitors applied: pulse oximetry, EKG, BP cuff and oxygen Nerve block position: supine Anesthetic Used: ropivicaine 0.5% Amount of anesthesia used (mL): 20 Ultrasound used to: recognize landmarks Nerve Stimulator Used?: No Interscalene/Femoral BLK: 4 stimuplex 21 g needle used for position and inplane approach, visualize local anesthetic spread and no vascular puncture identified Injection: neg aspiration of heme Patient Tolerated Procedure: well Complications: none
--- NOTE | 2020-05-29 12:41 | P.OP_ITS ---
Operative Report Date of procedure: May 29, 2020 Pre-op Diagnosis: Osteoarthritis left knee Post-op diagnosis: same Post-op Findings: Same Procedure Done: Left total knee arthroplasty Implants: Blaze total knee arthroplasty components were used includin) Size 4 triathalon cruciate substituting femoral component 2) Size 4 universal tibial component 3) 35 mm /10 mm thickness Tritanium asymetric patella 4) Size 4/13 mm thickness cruciate substituting tibial bearing insert Pathology: none sent Surgeon: Salvador Jurado Anesthesia: Nerve Block (Spinal, adductor canal block) Estimated blood loss (mL): 150 Findings: The patient had tricompartmental degenerative disease with hypoplasia of the lateral femoral condyle and severe tibial wear with resulting valgus deformity. Condition: stable Disposition: PACU Procedure: The patient was taken to the operating room. Patient was given 1 g of tranexamic acid . The above anesthesia provided by the anesthesia service. A timeout was performed. The patient was prepped and draped in the usual fashion with the lower extremity exposed. A anterior incision was made, midline, from a point proximal to the patella to the distal tibial tubercle. The knee was entered through a medial parapatellar approach. The patella could be displaced laterally and the knee flexed. The patellar fat pad was resected to provide better visibility. Retractors were placed medially and laterally adjacent to the tibial plateau. The femoral canal was drilled in line with the longitudinal axis of the femur. Intramedullary femoral guide for used to make a distal femoral cut in 5 degrees of valgus, resecting 8 mm from the more prominent condyle. Next the extra m edullary tibial guide was placed in alignment with the longitudinal axis of the tibia. The cutting guides were set to remove just over just over 2 mm from the low lateral tibial plateau. The proximal tibia was then cut. The femoral measuring guide was then placed over the distal femur. Rotation was verified checking the relationship of the guide to the condyle and the trochlear groove. The femur was measured and cut for the desired femoral component. The desired tibial baseplate was then chosen. A trial reduction with the femur tibial baseplate and polyethylene was done, assuring that the knee was stable throughout full motion. .The tibia was prepared for the tibial baseplate. Patellar thickness was then measured. The patella was cut removing articular cartilage and prepared for appropriate size patellar button. All surfaces were cleaned with pulsatile lavage. The femur tibia and patella were then cemented into place. The posterior capsule and collateral ligaments were then injected with a solution of 100 mL of 0.2% ropivacaine, 1 mL of a 1:1000 epinephrine solution, and 30 mg of Toradol. Final polyethylene component was then snapped into place into the tibia. 2 grams of tranexamic acid were applied to the wound. The tourniquet was deflated. The tranxanemic acid was left contact with the knee for 5 minutes before the knee was irrigated with saline. The extensor retinaculum was closed with a running 1 Stratafix.. The subcutaneous tissues were closed with 2-0 Vicryl and the skin was closed with a running 3-0 Stratafix. The wound was covered with a Dermabond Prinio dressing. It was covered with 4xrs and a compressive Tubigauae was applied. The patient was taken to recovery room in stable condition.
--- NOTE | 2020-05-29 13:04 | SUR.PHASEI ---
PT AWAKE ALERT TALKATIV PT IS VERY [place], PT CAN MOVE BILAT TOES, SPINAL LEVAL AT T-12 LEVEL, VSS IV PATENT AT SLOW RATE. X RAY HERE. PT TAKING OCC ICE CHIPS.
--- NOTE | 2020-05-29 13:05 | SUR.PHASEI ---
LT FOOT SWOLLEN +2 PINK WARM WITH CAP REFILL LESS THAN 3 SECONDS.
--- NOTE | 2020-05-29 13:10 | SUR.PHASEI ---
PT WITH CERNA TO DD YELLOW URINE NOTED TO TUBING AND BAG IN SMALL AMT APPROX 20 ML
--- NOTE | 2020-05-29 13:23 | ANE.PACU2 ---
Inpatient post-anesthesia follow up: Airway intact: Yes Vital signs: Temperature 97.3 F Pulse Rate 64 Respiratory Rate 10 Blood Pressure 118/65 Pulse Oximetry 96 Oxygen Delivery Me thod Nasal Cannula Oxygen Flow Rate 3 Fraction of Inspir ed Oxygen Hydration adequate: Yes Nausea and vomiting: No Pain level: 1 Mental status: Baseline
[2020-05-29] MEDS: sodium chloride 0.9% 1,000 ML 100 ML IV (14:38)
[2020-05-29] MEDS: sennosides-docusate Tablet 2 TAB PO (18:01)
[2020-05-29] MEDS: FUROsemide 20 mg Tablet PO (18:02)
[2020-05-29] MEDS: potassium chloride ER 20 mEq Tablet PO (18:02)
[2020-05-29] MEDS: apixaban 5 mg Tablet PO (18:02)
[2020-05-29] MEDS: CELEcoxib 200 mg Capsule PO (20:22)
[2020-05-29] MEDS: latanoprost 0.005% Op Soln 2.5 mL Btl 1 DROP EYE-BOTH (20:22)
[2020-05-30] VITALS (7 sets, daily range): BP systolic 99–136; BP diastolic 59–73; PULSE 52–79; RESP 16–18; TEMP 36.4–36.9; O2SAT 92–98
[2020-05-30] MEDS: acetaminophen 500 mg Tablet 1000 MG PO ×3 (01:35→16:22)
[2020-05-30 02:40] LABS: Hemoglobin 10.9 g/dL (11.7-16.6)
--- NOTE | 2020-05-30 06:33 | PC.NURSE ---
NEUROVASCULAR ASSESSMENT PEDAL PULSES DOPPLED THROUGHOUT SHIFT - STRONG PULSE NOTED TO DOPPLER
[2020-05-30] MEDS: ferrous gluconate 324 mg Tablet PO (08:02)
[2020-05-30] MEDS: potassium chloride ER 20 mEq Tablet PO (08:02)
[2020-05-30] MEDS: aspirin 81 mg EC Tablet PO (08:02)
[2020-05-30] MEDS: sennosides-docusate Tablet 2 TAB PO (08:02)
[2020-05-30] MEDS: amlodipine 5 mg Tablet PO (08:02)
[2020-05-30] MEDS: omega-3 fatty acids 1,000 mg Capsule 1000 MG PO (08:03)
[2020-05-30] MEDS: gabapentin 300 mg Capsule PO (08:03)
[2020-05-30] MEDS: apixaban 5 mg Tablet PO (08:03)
[2020-05-30] MEDS: CELEcoxib 200 mg Capsule PO (08:03)
[2020-05-30] MEDS: FUROsemide 20 mg Tablet PO (08:03)
[2020-05-30] MEDS: psyllium powder Pkt 1 PACKET PO (08:04)
--- NOTE | 2020-05-30 15:11 | PM.DCS ---
Discharge Providers Date of Admission: 05/29/20 12:22 Date of Discharge: May 30, 2020 Attending Provider at Admission: Salvador Jurado MD Attending Provider at Discharge: Salvador Jurado MD Primary Care Provider: ERICKA Engel Diagnoses at Discharge Discharge Diagnosis (1) Status post left knee replacement: Status: Acute (2) Osteoarthritis of left knee: Status: Resolved Reason for Visit Reason for Visit: left total knee arthroplasty Hospital Course Hospital Course The patient was admitted after elective left total knee arthroplasty. Postoperatively he made excellent progress. After his second therapy session on the first postoperative day he was independent with his walker. He was managed with aspirin and foot pumps for DVT prophylaxis. He remained hemodynamically stable. His pain was adequately controlled with medications. Physical Exam Narrative: EXAM NARRATIVE: On the day of discharge his knee incision was clean. They had no drainage. There is minimal swelling in the thigh and knee and the calf. No distal neurovascular deficits were noted Urinary Catheter Management^: F: Cath Placed During This Visit: yes, but has since been removed by the nurse Reason for Continuing Indwelling Catheter: Required Immobilization for Trauma or Surgery or Anesthesia Urinary Catheter Date of Insertion: 05/29/20 Urinary Catheter Time of Insertion: 10:30 Date Urinary Catheter Removed: 05/30/20 Time Urinary Catheter Discontinued: 06:06 Discharge Data Data Completed and Pending: Completed Studies During Hospitalization Category Date Time Status XR knee LT 1-2V 7 3560 Routine Exams 05/29/20 Completed Labs from last 24 hours 05/30/20 02:12 Hgb 10.9 L Vitals: Last Vital Signs Temp 98.5 F 05/30/20 12:00 Pulse 58 L 05/30/20 12:09 Resp 16 05/30/20 12:09 BP 100/61 05/30/20 12:00 Pulse Ox 92 05/30/20 12:09 Discharge Plan Discharge Patient Disposition: Home Condition: Stable Prescriptions: New oxycodone 5 mg Tablet 5 mg PO Q4H PRN (Reason: Moderate Pain) 7 Days Qty: 30 RF: 0 gabapentin 300 mg Capsule 300 mg PO BID 7 Days Qty: 14 RF: 0 celecoxib 200 mg Capsule 200 mg PO Q12H 15 Days Qty: 30 RF: 0 Continued furosemide 40 mg tablet 20 mg PO BID RF: 0 latanoprost 0.005 % drops 1 drp ophthalmic (eye) DAILY RF: 0 naproxen sodium [Aleve] 220 mg tablet 220 mg PO BID PRN (Reason: Pain) RF: 0 multivitamin Tablet 1 tab PO QAM RF: 0 gwbkcncw-egl-[id number] [Welmhe-Ngdeu-ZVE (with antiox)] 500-500-66.7 mg tablet 1 tab PO DAILY RF: 0 ferrous gluconate 324 mg (38 mg iron) tablet 324 mg PO DAILY RF: 0 acetaminophen [Tylenol] 325 mg tablet 650 mg PO QID PRN (Reason: Pain) RF: 0 omega-3 fatty acids 1,000 mg capsule 1,000 mg PO DAILY RF: 0 potassium chloride [Klor-Con M20] 20 mEq tablet,ER particles/crystals 20 meq PO BID Qty: 180 RF: 3 mupirocin 2 % ointment 1 applic topical BID Qty: 22 RF: 0 apixaban 5 mg tablet 5 mg PO BID Qty: 60 RF: 3 aspirin 325 mg tablet 81 mg PO DAILY RF: 0 Metamucil 3.4 gram/5.4 gram Powder 1 tbsp PO DAILY RF: 0 amlodipine 5 mg tablet 5 mg PO DAILY RF: 0 Discharge Orders: Discharge Order (Routine); Ordered 05/30/20 Ordered By: Salvador Jurado Referrals: Salvador Jurado MD [Physician] - 06/13/20 1:30 pm Discharge Activity: Limit activity as instructed Activity Restrictions/Additional Instructions: Okay to shower Keep Tubigauze sleeve in place for swelling. Okay to remove for hygiene. Apply FirstIce up to 20 min/hr for pain and swelling Take Celebrex twice a day for the next 15 days for pain , discontinue other anti-inflammatories Take Neurontin twice a day for 7 days. Take Tylenol 325mg (up to 3 tabs) as needed 3 times a day for mild pain take oxycodone for breakthrough pain. Exercises per physical therapy. 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
== END 2020-05-30 17:00 | disposition home or self-care (01) ==
LOC: MEDSURG 12:23
PROVIDERS: Anesthesiology; Admitting Provider Orthopaedic Surgery; PCP Registered Nurse; Visit Provider Orthopaedic Surgery
PROC: (CPT 27447; principal; 2020-05-29 09:15)
DX: M17.12 Unilateral primary osteoarthritis, left knee (principal); Z79.82 Long term (current) use of aspirin; I25.10 Atherosclerotic heart disease of native coronary artery without angina pectoris; I11.0 Hypertensive heart disease with heart failure; I50.9 Heart failure, unspecified; E11.9 Type 2 diabetes mellitus without complications; Z87.891 Personal history of nicotine dependence; Z95.0 Presence of cardiac pacemaker; E78.5 Hyperlipidemia, unspecified
CPT/HCPCS: 27447; 12345; 36415; 64447; 73560; 80053; 85018; 85025; 97116; 97162; 97165; 97530; 97535; C1776; G0378; J0171; J0690; J1580; J1885; J2704; J2795; J7030

== ENCOUNTER → 2020-07-11 15:42 | Outpatient (BNVA) | payer MEDICARE, SELFPAY | PROVIDERS: PCP Registered Nurse; Visit Provider Orthopaedic Surgery | DX: Z47.1 Aftercare following joint replacement surgery (principal); Z96.652 Presence of left artificial knee joint; M17.12 Unilateral primary osteoarthritis, left knee | CPT/HCPCS: 73560; 73565 ==

== ENCOUNTER → 2020-09-12 15:36 | Outpatient (BNVA) | payer MEDICARE, SELFPAY | PROVIDERS: PCP Registered Nurse; Visit Provider Orthopaedic Surgery | DX: Z01.812 Encounter for preprocedural laboratory examination (principal); Z20.822 Contact with and (suspected) exposure to COVID-19 | CPT/HCPCS: 87635 ==

== ENCOUNTER 2020-09-18 10:46 | Observation (INO) | payer MEDICARE, SELFPAY ==
[2020-09-04 10:05] VITALS: BMI 29.2
--- NOTE | 2020-09-04 11:50 | ANES.PREANE2 ---
Pre-Anesthetic Assessment Pre-Anesthetic Assessment: Height/Weight: Height 1.8 m Weight 95.254 kg Preop Diagnosis: Osteoarthritis left knee Proposed Procedure: Operation Date: 09/18/20 07:00 Proposed Procedures p right Total Knee Arthroplasty 47527 m17.11(Right) - Salvador Jurado MD Was Beta Debra taken within 24 hours: N/A Was Clonidine taken within 24 hours: N/A Social: Social History: No alcohol and No tobacco Exam: Pre-Anes Outpt Exam: alert, oriented x 3, clear to auscultation bilaterally and regular rate & rhythm Airway: Submandibular: WNL Cervical ROM: WNL MP: 2 Dentition: False CV/HEM: CV/HEM: CAD, CHF and HTN Comments: MR, PHTN, pacemaker GI: GI: GERD Anesthetic Plan: ASA status: 4 Anesthesia: Regional (specify below) (SAB/adductor blk) Risk of > 500 ml blood loss (7ml/kg in children): No PFSH Anesthesia PFSH: Medical History Bradycardia by electrocardiography Chronic atrial fibrillation. 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
[2020-09-18] VITALS (24 sets, daily range): BP systolic 96–157; BP diastolic 51–92; PULSE 60–70; RESP 13–20; TEMP 36.3–37; O2SAT 91–98
[2020-09-18 06:26] LABS: Basophils % 0.5 %; Eosinophils # 0.4 10^3/uL (0.0-0.8); Eosinophils % 7.5 %; Hematocrit 37.1 % (42.0-52.0); Hemoglobin 11.7 g/dL (11.7-16.6); Lymphocytes # 1.1 10^3/uL (0.8-4.8); Lymphocytes % 19.7 %; Mean Corpuscular HGB Conc 31.5 g/dL (30.0-36.0); Mean Corpuscular Hemoglobin 31.9 pg (28.0-34.0); Mean Corpuscular Volume 101.1 fL (80-94); Mean Platelet Volume 10.9 fL (7.4-10.4); Monocytes # 0.8 10^3/uL (0.2-0.9); Monocytes % 14.8 %; Neutrophils # 3.15 10^3/uL (1.8-7.7); Neutrophils % 57.3 %; Nucleated Red Blood Cells % 0 %; Platelet Count 148 10^3/cmm (130-400); Red Blood Count 3.67 10^6/uL (4.1-5.3); White Blood Count 5.5 10^3/uL (4.0-10.0)
[2020-09-18] MEDS: sodium chloride 0.9% 1,000 ML 30 ML IV (06:30)
[2020-09-18] MEDS: oxyCODONE 20 mg ER (12 HR) Tablet PO (06:34)
[2020-09-18] MEDS: gabapentin 300 mg Capsule PO (06:34)
[2020-09-18] MEDS: acetaminophen 500 mg Tablet 1000 MG PO ×3 (06:35→18:20)
[2020-09-18] MEDS: CELEcoxib 200 mg Capsule 400 MG PO (06:35)
[2020-09-18 06:48] LABS: Anion Gap 11.3 (5-19); Blood Urea Nitrogen 23 mg/dL (8-23); Calcium 8.6 mg/dL (8.5-10.5); Carbon Dioxide 30 mmol/L (22-29); Chloride 105 mmol/L (98-107); Creatinine Clr Calc Pharmacy 80.9682; Glucose 85 mg/dL (65-115); Osmolality Calculated 297 mOsm/kg (285-295); Potassium 4.3 mmol/L (3.5-5.1); Sodium 142 mmol/L (136-145)
--- NOTE | 2020-09-18 06:59 | P.ANESUD_ITS ---
Pre-Anesthetic Update Pre-Anesthetic Assessment: Date of Surgery/Procedure: 09/18/20 Preop Vanesa gnosis: Osteoarthritis right knee Proposed Procedure: Operation Date: 09/18/20 07:00 Proposed Procedures p right Total Knee Arthroplasty 88192 m17.11(Right) - Salvador Jurado MD Any changes to Pre-Anesthetic Assessment?: No Last Intake: Intake Last Liquid Date 09/17/20 Last Liquid Time 17:00 Last Solid Date 09/17/20 Last Solid Time 17:00 Labs Last 48hrs: Laboratory Results - last 48 hr 09/18/20 09/18/20 06:20 06:20 WBC 5.5 RBC 3.67 L Hgb 11.7 Hct 37.1 L MCV 101.1 H MCH 31.9 MCHC 31.5 RDW 14.0 Plt Count 148 MPV 10.9 H Neut % (Auto) 57.3 Lymph % (Auto) 19.7 [place] % (Auto) 14.8 Eos % (Auto) 7.5 Baso % (Auto) 0.5 Neut # (Auto) 3.15 Lymph # (Auto) 1.1 [place] # (Auto) 0.8 Eos # (Auto) 0.4 Baso # (Auto) 0.0 Nucleated RBC % (a uto) 0 Nucleated RBCs # 0.0 Sodium 142 Potassium 4.3 Chloride 105 Carbon Dioxide 30 H Anion Gap 11.3 BUN 23 Creatinine 0.8 GFR Calculation Not Reportable Glucose 85 Calculated Osmolal ity 297 H Calcium 8.6 Vitals: Temperature 98.6 F 09/18/20 06:09 Temperature Source Temporal Artery S can 09/18/20 06:09 Pulse Rate 66 09/18/20 06:09 Respiratory Rate 16 09/18/20 06:34 Respiratory Effort 09/18/20 06:34 Respiratory Depth Normal 09/18/20 06:34 Respiratory Patter n 09/18/20 06:34 Blood Pressure 136/85 09/18/20 06:09 Blood Pressure Martha n 102 09/18/20 06:09 Pulse Oximetry 95 09/18/20 06:34 Oxygen Delivery Me thod 09/18/20 06:09 Exam: Pre-Anes Outpt Exam: alert, oriented x 3, clear to auscultation bilaterally and regular rate & rhythm Cardiac Studies: No Data to Display
--- NOTE | 2020-09-18 07:12 | W.PM.OPSUD ---
Surgery/Procedure H&P Update DATE OF PROCEDURE: September 18, 2020 DATE H&P PERFORMED: 08/08/20 PREOP DIAGNOSIS: Osteoarthritis right knee PLANNED PROCEDURE: Operation Date: 09/18/20 07:00 Proposed Procedures p right Total Knee Arthroplasty 83007 m17.11(Right) - Salvador Jurado MD
--- NOTE | 2020-09-18 07:13 | W.PM.OPSFHP ---
Same Day Surgery H&P Indication for Procedure/HPI DATE OF PROCEDURE: September 18, 2020 CHIEF COMPLAINT/INDICATIONFOR SURGICAL PROCEDURE: Osteoarthritis right knee here for elective right total knee arthroplasty PREOP DIAGNOSIS: Osteoarthritis right knee PLANNED PROCEDRUE: Operation Date: 09/18/20 07:00 Proposed Procedures p right Total Knee Arthroplasty 63617 m17.11(Right) - Salvador Jurado MD Medications/Allergies* Home Medications Medication Instructions Recorded Confirmed Type acetaminophen 325 mg tablet 500 mg PO QID PRN 05/07/19 09/18/20 History ferrous gluconate 324 mg (38 mg 324 mg PO DAILY tab 05/07/19 09/18/20 History iron) tablet multivitamin 1 tab PO QAM 05/07/19 09/18/20 History naproxen sodium 220 mg tablet 220 mg PO BID PRN 05/07/19 09/18/20 History omega-3 fatty acids 1,000 mg 1,000 mg PO DAILY cap 05/07/19 09/18/20 History capsule Metamucil 1 tbsp PO DAILY 03/06/20 09/18/20 History latanoprost 0.005 % eye drops 1 drp OPHTHALMIC (EYE) DAILY 03/29/20 09/18/20 History amlodipine 5 mg PO DAILY 05/15/20 09/18/20 History aspirin 325 mg tablet 81 mg PO DAILY tab 05/16/20 09/18/20 History apixaban 5 mg tablet 2.5 mg PO BID tab 07/10/20 09/18/20 History ascorbic acid (vitamin C) 500 mg 500 mg PO DAILY 07/10/20 09/18/20 History tablet potassium chloride 20 mEq 30 meq PO DIRECTED tab 07/10/20 09/18/20 History tablet,extended release(part/cryst) Allergies/Adverse Reactions Allergy/AdvReac Type Severity Reaction Status Date / Time lisinopril Allergy Unknown swelling Verified 09/18/20 06:09 spironolactone Allergy Unknown abdominal Verified 09/18/20 06:09 pain Current Medications: Generic Name Dose Route Start Last Admin Trade Name Freq PRN Reason Stop Dose Admin Sodium Chloride 1,000 mls @ 30 mls/hr 09/18/20 06:00 09/18/20 06:30 Sodium Chloride 0.9% IV 09/19/20 05:59 30 mls/hr .Q24H VITALY Administration Pertinent History/Comorbid Conditions* Medical History (Updated 08/08/20 @ 16:45 by Salvador Jurado MD) Bradycardia by electrocardiography Chronic atrial fibrillation. 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
[2020-09-18] MEDS: ketorolac 30 mg/mL INJ (08:11)
[2020-09-18] MEDS: tranexamic acid 1,000 mg/10mL SDV 1000 MG IRRIGATION (08:12)
[2020-09-18] MEDS: EPINEPHrine 1 mg/mL INJ (08:12)
--- NOTE | 2020-09-18 09:53 | PM.OP ---
Operative Report Date of procedure: September 18, 2020 Pre-op Diagnosis: Osteoarthritis right knee Implants: Blaze total knee arthroplasty components were used includin) Size 4 triathalon cruciate substituting femoral component 2) Size 5 universal tibial component 3) 32 mm /9 mm thickness Tritanium asymetric patella 4) Size 4/11 mm thickness cruciate substituting tibial bearing insert Surgeon: Salvador Jurado Anesthesia: Nerve Block (Spinal, adductor canal) Estimated blood loss (mL): 200 Findings: Patient had eburnated bone over the lateral femoral condyle and lateral tibial plateau with valgus alignment. There was eburnated bone over the patella and trochlea Condition: stable Disposition: PACU Procedure: Procedure: The patient was taken to the operating room. Patient was given 1 g of tranexamic acid . The above anesthesia provided by the anesthesia service. A timeout was performed. The patient was prepped and draped in the usual fashion with the lower extremity exposed. A anterior incision was made, midline, from a point proximal to the patella to the distal tibial tubercle. The knee was entered through a medial parapatellar approach. The patella could be displaced laterally and the knee flexed. The patellar fat pad was resected to provide better visibility. Retractors were placed medially and laterally adjacent to the tibial plateau. The femoral canal was drilled in line with the longitudinal axis of the femur. Intramedullary femoral guide for used to make a distal femoral cut in 5 degrees of valgus, resecting 10 mm from the more prominent medial condyle. This allowed for a minimal 2 mm resection from the low lateral femoral condyle. Next the extra medullary tibial guide was placed in alignment with the longitudinal axis of the tibia. The cutting guides were set to remove just over just over 2 mm from the low lateral tibial plateau. The proximal tibia was then cut. The femoral measuring guide was then placed over the distal femur. Rotation was verified checking the relationship of the guide to the condyle and the trochlear groove. The femur was measured and cut for the desired femoral component. The desired tibial baseplate was then chosen. A trial reduction with the femur tibial baseplate and polyethylene was done, assuring that the knee was stable throughout full motion. The tibia was prepared for the tibial baseplate. 2 grams of tranexamic acid and 80 mg of gentamicin were applied to the wound during preparation of the patellar component. Patellar thickness was then measured. The patella was cut removing articular cartilage and prepared for appropriate size patellar button. All surfaces were cleaned with pulsatile lavage. The femur tibia and patella were then cemented into place. The posterior capsule and collateral ligaments were then injected with a solution of 100 mL of 0.2% ropivacaine, 1 mL of a 1:1000 epinephrine solution, and 30 mg of Toradol. Final polyethylene component was then snapped into place into the tibia. The tourniquet was deflated. The tranxanemic acid was left contact with the knee for 5 minutes before the knee was irrigated with saline. The extensor retinaculum was closed with a running 1 Stratafix.. The subcutaneous tissues were closed with 2-0 Vicryl and the skin was closed with a running 3-0 Stratafix. The wound was covered with a Dermabond Prinio dressing. It was covered with 4xrs and a compressive Tubigauae was applied. The patient was taken to recovery room in stable condition.
--- NOTE | 2020-09-18 10:08 | XRR_ITS ---
PROCEDURE INFORMATION: Exam: XR Right Knee Exam date and time: 09/18/2020 10:46 AM Age: 85 years old Clinical indication: Device placement; Joint replacement hardware; Prior surgery; Surgery date: Post-operative (0-2 days); Surgery type: Right total knee arthroplasty TECHNIQUE: Imaging protocol: XR Right knee. Views: 1 or 2 views. COMPARISON: No relevant prior studies available. FINDINGS: Bones/joints: The patient has undergone recent insertion of a total knee prosthesis. Gas is present in the soft tissues from the recent surgery. No fractures are seen. Soft tissues: See Bones/joints finding. XR/XR knee RT 1-2V [id number] IMPRESSION: Satisfactory overall appearance of the total knee prosthesis.
--- NOTE | 2020-09-18 10:14 | ANES.PROC ---
Anesthesia Procedures Procedure/Date: 09/18/20 Nerve Block ^: Nerve Block 1: Main Anesthesia: general anesthesia Time Out Performed: Yes Consent: requested by attending/covering physician, risks and benefits reviewed and patient agrees to proceed Nerve block location: adductor canal (with continuous Ultrasound Guidance ) Anesthesia monitors applied: pulse oximetry, EKG, BP cuff and oxygen Nerve block position: supine Anesthetic Used: ropivicaine 0.5% (20 ) Amount of anesthesia used (mL): 20 Nerve Stimulator Used?: No Interscalene/Femoral BLK: 4 stimuplex 21 g needle used for position and inplane approach Injection: neg aspiration of heme Patient Tolerated Procedure: no complications
--- NOTE | 2020-09-18 10:18 | ANE.PACU2 ---
Inpatient post-anesthesia follow up: Airway intact: Yes Vital signs: Temperature 98.4 F Pulse Rate 68 Respiratory Rate 16 Blood Pressure 132/72 Pulse Oximetry 93 Oxygen Delivery Me thod Simple Mask Oxygen Flow Rate 10 Fraction of Inspir ed Oxygen Hydration adequate: Yes Nausea and vomiting: No Pain level: 1 Mental status: Altered (drowsy but arousable and comfortable )
[2020-09-18] MEDS: CELEcoxib 200 mg Capsule PO ×2 (12:01→22:00)
[2020-09-18] MEDS: sodium chloride 0.9% 1,000 ML 100 ML IV ×2 (12:02→22:01)
[2020-09-18] MEDS: sennosides-docusate Tablet 2 TAB PO (18:20)
[2020-09-18] MEDS: gabapentin 300 mg Capsule 150 MG PO (18:20)
[2020-09-19] MEDS: acetaminophen 500 mg Tablet 1000 MG PO ×2 (03:29→10:47)
[2020-09-19 04:55] LABS: Hemoglobin 10.3 g/dL (11.7-16.6)
[2020-09-19 04:56] VITALS: BP 101/64; PULSE 60; RESP 18; TEMP 36.3; O2SAT 98
--- NOTE | 2020-09-19 06:37 | PC.NURSE ---
Patient has some bleeding through dressing. Reinforced with ABD and kerlex.
[2020-09-19 07:30] VITALS: BP 113/74; PULSE 60; RESP 17; TEMP 36.4; O2SAT 98
[2020-09-19] MEDS: sennosides-docusate Tablet 2 TAB PO (09:32)
[2020-09-19] MEDS: psyllium powder Pkt 1 PACKET PO (09:32)
[2020-09-19] MEDS: FUROsemide 40 mg Tablet PO (09:34)
[2020-09-19] MEDS: multivitamin therapeutic Tablet 1 TAB PO (09:34)
[2020-09-19] MEDS: ascorbic acid 500 mg Tablet PO (09:34)
[2020-09-19] MEDS: omega-3 fatty acids 1,000 mg Capsule 1000 MG PO (09:34)
[2020-09-19] MEDS: amlodipine 5 mg Tablet PO (09:34)
--- NOTE | 2020-09-19 09:39 | PC.CHAP ---
Pastoral Care Encounter/Spiritual Assessment Type of Contact [] Declined ship washer visit [] Patient/Family/Request visit [] Outpatient visit [] Follow-up visit [] Physician referral [] Code/Alert [x] Routine visit [] Staff referral [] Actively dying [] Patient sleeping [] Family support [] [] Out of room [] Palliative care [] [] Receiving care in room [] Pre-surgical visit [] Trauma [] Long length of stay [] ICU visit [] Other: Relational/Emotional Strength [x] Patient feels connected with others/family/visitors/staff [] Distress [] Loneliness/isolation [] Abandonment Spirituality of Patient [x] Person of Coco [] Attends Moravian of their Coco [x] Believes in Prayer [] Reads Bible or Baptism materials [] There are Spiritual issues to be addressed Sheep Killer Interventions [x] Prayer [x] Active listening [] Non-anxious presence [] Spiritual/emotional support [] Crisis/trauma care [] Spiritual counseling [] Bereavement support [] Provided bereavement packet [] Provided Bible/devotional materials [] Provided toy/stuffed animal, coloring book to patient or family member [] Provided Communion [] Anointing/[place] [] Salvation [x] Completed spiritual assessment [] Other: Impact on Illness or Injury [] Angry [] Fearful [] Anxious [] Often cries [] Exhaustion [] Unable to work [] Unable to attend moravian [] Unable to walk/stand [] Unable to read [] Unable to drive [] Unable to eat/drink [] Unable to sleep [] Unable to be with family [] Patient intubated [] Other: Summary patient doing good ready to go home Time spent with patient 10 min
[2020-09-19] MEDS: CELEcoxib 200 mg Capsule PO (10:47)
[2020-09-19] MEDS: aspirin 81 mg EC Tablet PO (10:47)
[2020-09-19] MEDS: gabapentin 100 mg Capsule PO (10:47)
[2020-09-19 11:20] VITALS: BP 116/72; PULSE 57; RESP 19; TEMP 36.3; O2SAT 97
[2020-09-19] MEDS: latanoprost 0.005% Op Soln 2.5 mL Btl 1 DROP EYE-BOTH (12:07)
--- NOTE | 2020-09-19 13:21 | P.DS_ITS ---
Discharge Providers Date of Admission: 09/18/20 10:46 Date of Discharge: September 19, 2020 Attending Provider at Admission: Salvador Jurado MD Attending Provider at Discharge: Salvador Jurado MD Primary Care Provider: ERICKA Engel Diagnoses at Discharge Discharge Diagnosis (1) Status post right knee replacement: Status: Acute (2) Osteoarthritis of right knee: Status: Resolved Reason for Visit Reason for Visit: right total knee arthroplasty Hospital Course Hospital Course Patient was admitted for elective right total knee arthroplasty. He tolerated the procedure well. He was managed with aspirin and sequential compression dressings in the hospital. He had a slight amount of drainage from his knee and his Eliquis was held. He made satisfactory progress with therapy. He was discharged home on the first postoperative day. Physical Exam Narrative: EXAM NARRATIVE: On the day of discharge his knee incision was clean. Slight sanguinous drainage was identified on the dressing. They had no visible drainage. There is minimal swelling in the thigh and knee and the calf. No distal neurovascular deficits Urinary Catheter Management^: Estrada: Cath Placed During This Visit: yes, but has since been removed by the nurse Reason for Continuing Indwelling Catheter: Decision to DC Catheter Urinary Catheter Date of Insertion: 09/18/20 Urinary Catheter Time of Insertion: 08:25 Date Urinary Catheter Removed: 09/19/20 Time Urinary Catheter Discontinued: 06:00 Discharge Data Data Completed and Pending: Completed Studies During Hospitalization Category Date Time Status XR knee RT 1-2V 7 [id number] Routine Exams 09/18/20 10:08 Completed Labs from last 24 hours 09/19/20 04:49 Hgb 10.3 L Vitals: Last Vital Signs Temp 97.4 F L 09/19/20 11:20 Pulse 57 L 09/19/20 11:20 Resp 19 H 09/19/20 11:20 BP 116/72 09/19/20 11:20 Pulse Ox 97 09/19/20 11:20 Discharge Plan Discharge Patient Disposition: Home Condition: Stable Prescriptions: New celecoxib 200 mg Capsule 200 mg PO Q12H 14 Days Qty: 28 RF: 0 acetaminophen 500 mg Tablet 1,000 mg PO Q8H 14 Days Qty: 84 RF: 0 Discontinued naproxen sodium [Aleve] 220 mg tablet 220 mg PO BID PRN (Reason: Pain) RF: 0 acetaminophen [Tylenol] 325 mg tablet 500 mg PO QID PRN (Reason: Pain) RF: 0 Eliquis 5 mg tablet 2.5 mg PO BID RF: 0 No Action latanoprost 0.005 % drops 1 drp ophthalmic (eye) DAILY RF: 0 multivitamin Tablet 1 tab PO QAM RF: 0 ferrous gluconate 324 mg (38 mg iron) tablet 324 mg PO DAILY RF: 0 omega-3 fatty acids 1,000 mg capsule 1,000 mg PO DAILY RF: 0 potassium chloride [Klor-Con M20] 20 mEq tablet,ER particles/crystals 30 meq PO DIRECTED RF: 0 ascorbic acid (vitamin C) 500 mg tablet 500 mg PO DAILY RF: 0 aspirin 325 mg tablet 81 mg PO DAILY RF: 0 furosemide 40 mg tablet See Rx Instructions .ROUTE .COMPLEX Qty: 45 RF: 1 Metamucil 3.4 gram/5.4 gram Powder 1 tbsp PO DAILY RF: 0 amlodipine 5 mg tablet 5 mg PO DAILY RF: 0 Discharge Orders: Discharge Order (Routine); Ordered 09/19/20 Ordered By: Salvador Jurado Referrals: Salvador Jurado MD [Physician] - 10/03/20 10:15 am Discharge Diet: Advance as tolerated Discharge Activity: Limit activity as instructed Patient Instructions: Opioid Safety Activity Restrictions/Additional Instructions: Okay to shower Keep Tubigauze sleeve in place for swelling. Okay to remove for hygiene. Apply FirstIce up to 20 min/hr for pain and swelling Take Celebrex twice a day for the next 15 days for pain , discontinue other anti-inflammatories Take Tylenol 500mg (1-2 tabs) as needed 3 times a day for mild pain take oxycodone from previous surgery for breakthrough pain. Exercises per physical therapy. May weight-bear as tolerated on total knee arthroplasty Discharge Attestations Time Spent in Discharge Care*: other Quality Metrics Clinical Quality Measures During this hospital stay, did patient experience: None Coding Level of Care Code Acute g [facility] note Diagnoses Status post right knee replacement Z96.651 Osteoarthritis of right knee M17.11
[2020-09-19 15:29] VITALS: BP 97/60; PULSE 57; RESP 18; TEMP 36.8; O2SAT 92
[2020-09-19 16:33] VITALS: BP 97/60; PULSE 57; RESP 18; TEMP 36.8; O2SAT 92
== END 2020-09-19 17:00 | disposition home or self-care (01) ==
LOC: MEDSURG 10:47
PROVIDERS: Anesthesiology; Admitting Provider Orthopaedic Surgery; PCP Registered Nurse; Visit Provider Orthopaedic Surgery
PROC: (CPT 27447; principal; 2020-09-18 07:00)
DX: M17.11 Unilateral primary osteoarthritis, right knee (principal); Z79.82 Long term (current) use of aspirin; I25.10 Atherosclerotic heart disease of native coronary artery without angina pectoris; I11.0 Hypertensive heart disease with heart failure; I50.9 Heart failure, unspecified; Z87.891 Personal history of nicotine dependence
CPT/HCPCS: 27447; 36415; 51702; 73560; 80048; 85018; 85025; 97110; 97116; 97162; 97166; 97530; 97535; C1776; G0378; J0171; J0690; J1580; J1885; J2370; J2704; J2795; J3010; J7030

== ENCOUNTER 2020-09-23 16:29 | Emergency (ER) | payer MEDICARE, SELFPAY ==
[2020-09-23 16:33] VITALS: BP 114/84; PULSE 71; RESP 18; TEMP 36.7; O2SAT 93; BMI 27.1
[2020-09-23 16:42] VITALS: BP 114/84; PULSE 71; RESP 16; O2SAT 93
--- NOTE | 2020-09-23 17:15 | XRR_ITS ---
PROCEDURE INFORMATION: Exam: XR Left Knee Exam date and time: 09/23/2020 5:17 PM Age: 85 years old Clinical indication: Pain; Left; Prior surgery; Surgery type: Nikolas knee TECHNIQUE: Imaging protocol: XR Left knee. Views: 3 views. COMPARISON: CR XR knees AP WB w LT lmt ORTH 07/11/2020 3:49 PM FINDINGS: Bones/joints: Left total knee arthroplasty changes. Lateral subluxation of the patella suspected. The bones appear intact. No fracture identified. Suspected knee effusion. Soft tissues: Normal. Vasculature: Vascular calcifications. XR/XR knee LT 3V* [id number] IMPRESSION: 1. No fracture identified. 2. Lateral subluxation of the patella. 3. Probable knee effusion.
--- NOTE | 2020-09-23 17:21 | ED_ITS ---
HPI - Extremity Problem General: Chief complaint: Extremity Injury, Lower Stated complaint: POST OP RIGHT KNEE PAIN Time Seen by Provider: 09/23/20 16:44 History of Present Illness: HPI Narrative: The patient is an 85-year-old male who comes to the ER complaining of left knee pain. He had a right knee replacement on September 18 this year and says he has been getting around fine since he has been home however now his left knee is hurting when he walks. He has p reviously had that knee replaced as well sometime ago. MD Complaint: extremity pain and joint pain Location: left Quality: sharp Associated symptoms: Deny chest pain or rash Review of Systems General: Reports: 10 or more systems reviewed and unremarkable except in HPI and below Const: Denies: fatigue Eyes: Denies: change in vision, blurry vision or eye redness ENMT: Denies: throat pain, swelling of lips/tongue, ear or mastoid pain or nasal congestion Card: Denies: chest pain, palpitations, irregular heart rhythm, edema, dyspnea on exertion or orthopnea Resp: Denies: dyspnea, productive cough or non-productive cough GI: Denies: abdominal pain, diarrhea or GI cramping : Denies: flank pain, urinary frequency or urinary urgency Musc: Reports: joint pain; Denies: neck pain, back pain, extremity pain, joint redness, limited range of motion or muscle weakness Skin/Breast: Denies: rash, pruritus, erythema, skin pain or skin tenderness Neuro: Denies: headache(s), numbness in extremities, weakness in extremities, sensory changes, difficulty walking, dizziness, confusion or Slurred speech present Psych: Denies: anxiety or depression Endo: Denies: polyuria All/Imm: Denies: urticaria, throat swelling or tongue swelling PFSH ED PFSH: Medical History Bradycardia by electrocardiography Chronic atrial fibrillation. 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 Surgical History History of appendectomy History of hernia repair Family History Other Diabetes Social History (Reviewed 08/08/20 @ 16:07 by DRE Beasley Smoking and tobacco status: former smoker Alcohol intake: never Physical Exam Const: COMMON NORMALS: no acute distress, average body habitus, patient oriented x3, no limitations, healthy appearing, alert and well nourished GENERAL APPEARANCE: cooperative, comfortable, well kempt and well developed ORIENTATION/CONSCIOUSNESS: Yes awake, Yes oriented to person, Yes oriented to place and Yes oriented to time HENMT: COMMON NORMALS: normocephalic, external ears normal and Normal external nose present HEAD & SCALP: normal to inspection and normocephalic NOSE: Normal external nose present EXTERNAL EAR: Yes external ears normal MOUTH: Normal oral and palatal mucosa present THROAT: posterior oropharynx normal Eye: COMMON NORMALS: Equal, round and reactive pupils present and EOMs intact bilaterally GENERAL EYE: appearance normal, both eyes and all related structures PUPIL: Yes Equal, round and reactive pupils present Neck/C-Spine: COMMON NORMALS: full ROM, no lymphadenopathy, no meningeal signs and no JVD GENERAL: Yes normal visual inspection Lymph: LYMPHATIC: no lymphadenopathy noted Chest: COMMONS NORMALS: normal inspection of the chest and normal palpation of entire chest wall Resp: COMMON NORMALS: normal respiratory effort, No retractions, No use of accessory muscles, clear to auscultation bilaterally and percussion normal EFFORT & INSPECTION: Yes able to speak in complete sentences AUSCULTATION: clear to auscultation bilaterally PERCUSSION: percussion normal Cardio: COMMON NORMALS: no JVD, regular rate, regular rhythm, S1 normal heart sound present, S2 normal heart sound present and Peripheral pulses 2+ throughout RATE: regular rate RHYTHM: regular rhythm HEART SOUNDS: S1 normal heart sound present and S2 normal heart sound present PERIPHERAL PULSES: Peripheral pulses 2+ throughout GI: COMMON NORMALS: Normal to inspection, nondistended, normoactive bowel sounds present, Soft to palpation, non-tender and no masses INSPECTION: Yes normal to inspection PALPATION: Yes Soft to palpation : COMMON NORMALS: Yes no CVA tenderness BLADDER/KIDNEY EXAM: Yes no CVA tenderness Back/Pelvis: COMMON NORMALS: no CVA tenderness, thoracic and lumbar spine normal to inspection, no thoracic nor lumbar tenderness and thoraco-lumbar ROM normal Extremity: COMMON NORMALS: normal to inspection, full ROM, capillary refill normal, no joint enlargement and no pedal edema GENERAL: Yes normal exam except as noted Neuro: COMMON NORMALS: patient oriented x3, CN's II-XII intact bilaterally, moves all extremities, no focal motor deficits, no sensory deficits noted and gait normal SENSORIUM/ORIENTATION: Yes alert, Yes oriented to person, Yes oriented to place and Yes oriented to time MENINGEAL SIGNS: Yes no meningeal signs Psych: COMMON NORMALS: mental status grossly normal, Normal thought process present, cooperative, normal affect and speech normal APPEARANCE: Yes well kempt ATTITUDE: Yes calm SPEECH: Yes normal speech THOUGHT PROCESS: Normal thought process present Skin: COMMON NORMALS: no rashes or lesions noted GENERAL SKIN EXAM: no rashes or lesions noted Course Vital Signs: Vital signs: Vital Signs Temperature 98.0 F 09/23/20 16:33 Pulse Rate 75 09/23/20 18:15 Respiratory Rate 18 09/23/20 18:15 Blood Pressure 127/63 09/23/20 18:15 Pulse Oximetry 95 09/23/20 18:15 MDM - Extremity (Nontraumatic) MDM Narrative: Medical decision making narrative: The patient came in complaining of left knee pain after having a right knee replacement surgery recently. He also has a mild cellulitis of his right lower extremity. He was given Keflex for that and should improve with a prescription at home. Also he proved here that he is able to get up and down with the assistance of his son and should be able to take care of himself at home. Recommended calling primary care physician Friday morning if they are unable to care for him for chcf placement. Return to the ER until then if they are unable to care for him. ER with worsening symptoms at any time. Primary care early next week to look at the skin cellulitis and discussed with Dr. Jurado early next week if follow- up as well. Lab Data: Labs: Lab Results 09/23/20 09/23/20 09/23/20 Range/Units 15:53 15:53 17:20 WBC 6.3 (4.0-10.0) 10^3/ uL RBC 3.33 L (4.1-5.3) 10^6/u L Hgb 10.7 L (11.7-16.6) g/dL Hct 33.7 L (42.0-52.0) % MCV 101.2 H (80-94) fL MCH 32.1 (28.0-34.0) pg MCHC 31.8 (30.0-36.0) g/dL RDW 14.3 (12.1-15.1) % Plt Count 187 (130-400) 10^3/c mm MPV 11.3 H (7.4-10.4) fL Neut % (Auto) 68.0 % Lymph % (Auto) 16.3 % [place] % (Auto) 11.2 % Eos % (Auto) 3.4 % Baso % (Auto) 0.6 % Neut # (Auto) 4.25 (1.8-7.7) 10^3/u L Lymph # (Auto) 1.0 (0.8-4.8) 10^3/u L [place] # (Auto) 0.7 (0.2-0.9) 10^3/u L Eos # (Auto) 0.2 (0.0-0.8) 10^3/u L Baso # (Auto) 0.0 (0.0-0.1) 10^3/u L Nucleated RBC % (a uto) 0 % Nucleated RBCs # 0.0 /100WBC Sodium 144 (136-145) mmol/L Potassium 4.8 (3.5-5.1) mmol/L Chloride 105 (98-107) mmol/L Carbon Dioxide 27 (22-29) mmol/L Anion Gap 16.8 (5-19) BUN 25 H (8-23) mg/dL Creatinine 0.7 (0.7-1.2) mg/dL GFR Calculation Not Reportable Glucose 112 (65-115) mg/dL Calculated Osmolal ity 303 H (285-295) mOsm/k g Lactate 1.2 (0.5-2.2) mmol/L Calcium 8.6 (8.5-10.5) mg/dL Total Bilirubin 1.1 (0.15-1.2) mg/dL AST 26 (0-40) U/L ALT 13 (0-41) U/L Alkaline Phosphata se 114 (40-130) IU/L Total Protein 6.5 L (6.6-8.7) g/dL Albumin 3.6 (3.5-5.2) g/dL Globulin 2.9 (1.3-4.6) g/dL Discharge Plan Discharge Patient Disposition: Home Clinical Impression: Knee pain, left, Cellulitis Condition: Stable Prescriptions: New cephalexin 500 mg capsule 500 mg PO BID 10 Days Qty: 20 RF: 0 No Action latanoprost 0.005 % drops 1 drp ophthalmic (eye) DAILY RF: 0 multivitamin Tablet 1 tab PO DAILY RF: 0 ferrous gluconate 324 mg (38 mg iron) tablet 324 mg PO DAILY RF: 0 omega-3 fatty acids 1,000 mg capsule 1,000 mg PO DAILY RF: 0 potassium chloride [Klor-Con M20] 20 mEq tablet,ER particles/crystals 30 meq PO DIRECTED RF: 0 ascorbic acid (vitamin C) 500 mg tablet 500 mg PO DAILY RF: 0 aspirin 325 mg tablet 81 mg PO DAILY RF: 0 furosemide 40 mg tablet See Rx Instructions .ROUTE .COMPLEX Qty: 45 RF: 1 acetaminophen 500 mg Tablet 1,000 mg PO Q8H 14 Days Qty: 84 RF: 0 celecoxib 200 mg Capsule 200 mg PO Q12H 14 Days Qty: 28 RF: 0 Metamucil 3.4 gram/5.4 gram Powder 1 tbsp PO DAILY RF: 0 amlodipine 5 mg tablet 5 mg PO DAILY RF: 0 Eliquis 2.5 mg Tablet 2.5 mg PO BID RF: 0 Discharge Orders: Discharge ED (Routine); Ordered 09/23/20 Ordered By: Julian Robbins Referrals: Cassie Gillette FNP [Primary Care Provider] - Discharge Diet: Advance as tolerated Discharge Activity: Resume usual activity Patient Instructions: Cellulitis (ED), Weakness (ED), Opioid Safety Activity Restrictions/Additional Instructions: You likely have pain in your left knee related to putting more weight on it as you have had a recent surgery on your right knee. Please take your pain me dications as you have been directed for the recent surgery. Be careful getting up and down and try not to fall. Friday morning call your primary care physician and try to get into a chcf rehab facility to help with your recovery. If you are unable to care for him please call 911 for further evaluation. You also have an infection of your right leg. Please take the antibiotic as directed and follow-up with your primary care physician early next week and Dr. Jruado early next week. Coding Level of Care Code ED Nailhead Puncher for Avelg Fwd Exam Comprehensive
[2020-09-23 17:30] VITALS: BP 114/66; PULSE 73; RESP 18; O2SAT 93
[2020-09-23 17:40] LABS: Basophils % 0.6 %; Eosinophils # 0.2 10^3/uL (0.0-0.8); Eosinophils % 3.4 %; Hematocrit 33.7 % (42.0-52.0); Hemoglobin 10.7 g/dL (11.7-16.6); Lymphocytes % 16.3 %; Mean Corpuscular HGB Conc 31.8 g/dL (30.0-36.0); Mean Corpuscular Hemoglobin 32.1 pg (28.0-34.0); Mean Corpuscular Volume 101.2 fL (80-94); Mean Platelet Volume 11.3 fL (7.4-10.4); Monocytes # 0.7 10^3/uL (0.2-0.9); Monocytes % 11.2 %; Neutrophils # 4.25 10^3/uL (1.8-7.7); Nucleated Red Blood Cells % 0 %; Platelet Count 187 10^3/cmm (130-400); Red Blood Count 3.33 10^6/uL (4.1-5.3); Red Cell Distribution Width 14.3 % (12.1-15.1); White Blood Count 6.3 10^3/uL (4.0-10.0)
[2020-09-23 17:41] LABS: Alanine Aminotransferase 13 U/L (0-41); Albumin Level 3.6 g/dL (3.5-5.2); Alkaline Phosphatase 114 IU/L (40-130); Anion Gap 16.8 (5-19); Aspartate Amino Transferase 26 U/L (0-40); Blood Urea Nitrogen 25 mg/dL (8-23); Calcium 8.6 mg/dL (8.5-10.5); Carbon Dioxide 27 mmol/L (22-29); Chloride 105 mmol/L (98-107); Creatinine Clr Calc Pharmacy 80.5459; Globulin 2.9 g/dL (1.3-4.6); Glucose 112 mg/dL (65-115); Osmolality Calculated 303 mOsm/kg (285-295); Potassium 4.8 mmol/L (3.5-5.1); Sodium 144 mmol/L (136-145); Total Bilirubin 1.1 mg/dL (0.15-1.2); Total Protein 6.5 g/dL (6.6-8.7)
[2020-09-23 17:54] LABS: Lactate (Lactic Acid level) 1.2 mmol/L (0.5-2.2)
[2020-09-23 18:15] VITALS: BP 127/63; PULSE 75; RESP 18; O2SAT 95
--- NOTE | 2020-09-23 18:57 | PC.NURSE ---
patient ambulated with walker for about 20 steps, tolerated well. family at bedside
[2020-09-23] MEDS: cephALEXin 500 mg Capsule PO (20:16)
[2020-09-23 20:21] VITALS: BP 132/70; PULSE 66; RESP 18; O2SAT 95
--- NOTE | 2020-09-23 20:22 | PC.NURSE ---
redness to right lower leg . warm to touch.
== END 2020-09-23 20:23 | disposition home or self-care (01) ==
PROVIDERS: Emergency Provider Family Medicine; PCP Registered Nurse
DX: M25.562 Pain in left knee (principal); L03.115 Cellulitis of right lower limb; Z79.82 Long term (current) use of aspirin; Z79.01 Long term (current) use of anticoagulants; I11.0 Hypertensive heart disease with heart failure; I50.9 Heart failure, unspecified; I25.10 Atherosclerotic heart disease of native coronary artery without angina pectoris; Z87.891 Personal history of nicotine dependence; Z96.652 Presence of left artificial knee joint
CPT/HCPCS: 73562; 80053; 83605; 85025; 99283

== ENCOUNTER 2020-10-15 09:22 | Inpatient (IN) | payer MEDICARE, SELFPAY ==
[2020-10-15] VITALS (12 sets, daily range): BP systolic 105–137; BP diastolic 62–83; PULSE 68–98; RESP 17–24; TEMP 36.4–37.1; O2SAT 86–98; BMI 27.1
--- NOTE | 2020-10-15 09:27 | XRR_ITS ---
PROCEDURE INFORMATION: Exam: XR Chest Exam date and time: 10/15/2020 9:27 AM Age: 85 years old Clinical indication: Cough; Prior surgery; Surgery type: Pacemaker TECHNIQUE: Imaging protocol: XR of the chest. Views: 1 view. COMPARISON: CR XR chest 1V portable [id number] 03/22/2020 8:59 AM FINDINGS: Tubes, catheters and devices: There is a left subclavian single chamber pacemaker. Lungs: There is bilateral central pulmonary vascular congestion and bronchial wall thickening/haziness. There is bibasilar airspace disease. Pleural spaces: There is a moderate to large size right pleural effusion and a small left pleural effusion. No pneumothorax. Heart/Mediastinum: The cardiac silhouette is partially silhouetted out but is felt to be enlarged. The mediastinal contours are unchanged. Bones/joints: No acute osseous abnormality. XR/XR chest 1V portable [id number] IMPRESSION: 1. Bilateral central bronchial inflammation/edema. 2. Bibasilar airspace disease which can be due to pneumonia and/or atelectasis. 3. Asymmetric pleural effusions, much larger on the right. 4. Cardiomegaly.
--- NOTE | 2020-10-15 09:28 | ECG_ITS ---
[facility] Test Date: 2020-10-15 Pat Name: Jose Farias Department: Room: Gender: Male Manager Validation: : 1935 Requested By: Fidel Pederson Order Number: [id number] Alondra MD: Imtiaz Humphrey M.D. Measurements Intervals [place] Rate: 80 P: 252 [place]: 125 QRS: -49 QRSD: 162 T: 96 QT: 426 QTc: 493 Interpretive Statements ATRIAL FIBRILLATION WITH INTERMITTENT PACED BEATS MARKED LEFT AXIS DEVIATION [QRS AXIS < -30] RIGHT BUNDLE BRANCH BLOCK [120+ ms QRS DURATION, UPRIGHT V1, 40+ ms S IN I/aVL/V4/V5/V6] SEPTAL MYOCARDIAL INFARCTION [40+ ms Q WAVE IN V1/V2], OF INDETERMINATE AGE Compared to ECG 03/22/2020 06:21:32 Junctional rhythm now present Ventricular premature complex(es) now present Left-axis deviation now present Right bundle-branch block now present Myocardial infarct finding now present Ventricular-paced complex(es) or rhythm no longer present Electronically Signed On 10-17-2020 17:35:23 CDT by Imtiaz Humphrey M.D. [id number]
--- NOTE | 2020-10-15 09:28 | W.ED.GENADLT ---
HPI - General Adult General: Chief complaint: Extremity Problem,Nontraumatic Stated complaint: INDY LOWER EXT EDEMA Time Seen by Provider: 10/15/20 09:24 History of Present Illness: HPI narrative: This patient is a 85-year-old male from local longterm brought in by EMS for reported below pulse ox. EMS reports upon their arrival patient had normal pulse ox. Patient has no complaints no complaints of shortness of breath no chest pain. Patient does have chronic lower extremity edema from congestive heart failure. Patient complains of no pain. skilled nursing reportedly had stopped the patient's Lasix and potassium replacement over the past 5 days but started back this morning. Patient did take 80 mg of Lasix prior to EMS arrival. Will do medical screening exam and evaluate treat as needed. Onset (ago): minute(s) Associated symptoms: Deny chest pain, dyspnea, headache(s), nausea, rash, palpitations or vomiting Review of Systems General: Reports: 10 or more systems reviewed and unremarkable except in HPI and below Const: Denies: fever(s), chills, body aches or fatigue Eyes: Denies: change in vision or blurry vision ENMT: Denies: throat pain, hoarseness or mouth pain Card: Reports: swelling of feet/ankles; Denies: chest pain, palpitations, irregular heart rhythm, edema or lightheadedness Resp: Denies: dyspnea, productive cough, non-productive cough, wheezing or pain on inspiration GI: Denies: abdominal pain, nausea or vomiting : Denies: flank pain, dysuria, urinary frequency, urinary urgency or urinary hesitancy Musc: Denies: neck pain, back pain, extremity pain, extremity swelling, joint pain, joint swelling, joint redness, joint warmth or limited range of motion Skin/Breast: Denies: rash, pruritus, erythema or skin tenderness Neuro: Denies: headache(s), numbness in extremities or weakness in extremities Psych: Denies: anxiety or depression PFSH ED PFSH: Medical History Bradycardia by electrocardiography Chronic atrial fibrillation. 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 Surgical History History of appendectomy History of hernia repair Family History Other Diabetes Social History Smoking and tobacco status: former smoker Alcohol intake: never Physical Exam Const: COMMON NORMALS: no acute distress, average body habitus, patient oriented x3, no limitations, healthy appearing, alert and well nourished HENMT: COMMON NORMALS: normocephalic, atraumatic, hearing grossly normal bilaterally, external ears normal, EAC's normal, TM's normal bilaterally, Normal external nose present, Normal nasal mucous membranes and turbinates present, moist oral mucous membranes, oropharynx normal, dentition normal and gingiva normal HEAD & SCALP: normocephalic and atraumatic NOSE: Normal external nose present and Normal nasal mucous membranes and turbinates present EXTERNAL EAR: Yes external ears normal EXTERNAL AUDITORY CANAL: EAC's normal TYMPANIC MEMBRANE: TM's normal bilaterally Neck/C-Spine: COMMON NORMALS: full ROM, no lymphadenopathy, supple, no meningeal signs, no JVD, Thyroid normal and No carotid bruits THYROID: Thyroid normal Chest: COMMONS NORMALS: normal inspection of the chest, normal palpation of entire chest wall, normal inspection of the breasts and normal palpation of the breasts Breast/axilla inspection: Yes normal inspection of the breasts BREAST/AXILLA PALPATION: Yes normal palpation of the breasts Resp: COMMON NORMALS: normal respiratory effort, No retractions, No use of accessory muscles, clear to auscultation bilaterally and percussion normal AUSCULTATION: clear to auscultation bilaterally PERCUSSION: percussion normal Cardio: COMMON NORMALS: no JVD, regular rate, regular rhythm, S1 normal heart sound present, S2 normal heart sound present, No gallops present (Cardio), No clicks present (Cardio), No murmurs present (Cardio), No rub (Cardio) and Peripheral pulses 2+ throughout RATE: regular rate RHYTHM: regular rhythm HEART SOUNDS: S1 normal heart sound present and S2 normal heart sound present PERIPHERAL PULSES: Peripheral pulses 2+ throughout GI: COMMON NORMALS: Normal to inspection, nondistended, normoactive bowel sounds present, Soft to palpation, non-tender, No hepatosplenomegaly present, no masses and no bruits PALPATION: Yes Soft to palpation and Yes No hepatosplenomegaly present : COMMON NORMALS: Yes no CVA tenderness BLADDER/KIDNEY EXAM: Yes no CVA tenderness Back/Pelvis: COMMON NORMALS: no CVA tenderness, thoracic and lumbar spine normal to inspection, no thoracic nor lumbar tenderness, thoraco-lumbar ROM normal and straight leg raise negative bilaterally Extremity: COMMON NORMALS: normal to inspection, full ROM, capillary refill normal, no joint enlargement, no clubbing, cyanosis or edema and no calf tenderness OTHER: Bilateral pedal edema extending to the knees. Chronic Neuro: COMMON NORMALS: patient oriented x3 SENSORIUM/ORIENTATION: Yes alert MENINGEAL SIGNS: Yes no meningeal signs Course Reevaluation(s): Reevaluation #1: Patient appears to have pneumonia and acute congestive heart failure with some pulmonary edema. Patient be admitted to the floor for Dr. Hernandez he will see patient write additional orders. Time: 10:53 Consultations: Consultation #1: I did discuss at length with Dr. David woodruff. He is accepted this patient for admission to the floor. He was treated patient write additional orders Time: 10:54 Vital Signs: Vital signs: Vital Signs Temperature 97.9 F 10/15/20 09:28 Pulse Rate 79 10/15/20 10:51 Respiratory Rate 20 H 10/15/20 10:42 Blood Pressure 118/83 10/15/20 09:28 Pulse Oximetry 86 L 10/15/20 09:28 MDM - General Adult MDM Narrative: Medical decision making narrative: This patient is a 85-year-old male from local longterm brought in by EMS for reported below pulse ox. EMS reports upon their arrival patient had normal pulse ox. Patient has no complaints no complaints of shortness of breath no chest pain. Patient does have chronic lower extremity edema from congestive heart failure. Patient complains of no pain. skilled nursing reportedly had stopped the patient's Lasix and potassium replacement over the past 5 days but started back this morning. Patient did take 80 mg of Lasix prior to EMS arrival. Patient appears to have an acute pneumonia with acute congestive heart failure and pulmonary edema. Patient's white count is 19,000. Patient has infiltrate right lung. Patient's pulse ox did drop to 87% when oxygen was turned off. I did discuss at length with Dr. David woodruff. He is accepted this patient for admission to the floor. He was treated patient write additional orders Lab Data: Labs: Lab Results 10/15/20 10/15/20 10/15/20 Range/Units 09:40 09:40 09:40 WBC 18.8 H (4.0-10.0) 10^3/ uL RBC 2.99 L (4.1-5.3) 10^6/u L Hgb 9.0 L (11.7-16.6) g/dL Hct 29.0 L (42.0-52.0) % MCV 97.0 H (80-94) fL MCH 30.1 (28.0-34.0) pg MCHC 31.0 (30.0-36.0) g/dL RDW 16.0 H (12.1-15.1) % Plt Count 513 H (130-400) 10^3/c mm MPV 10.8 H (7.4-10.4) fL Neut % (Auto) 85.9 % Lymph % (Auto) 3.9 % [place] % (Auto) 8.4 % Eos % (Auto) 0.3 % Baso % (Auto) 0.2 % Neut # (Auto) 16.09 H (1.8-7.7) 10^3/u L Lymph # (Auto) 0.7 L (0.8-4.8) 10^3/u L [place] # (Auto) 1.6 H (0.2-0.9) 10^3/u L Eos # (Auto) 0.1 (0.0-0.8) 10^3/u L Baso # (Auto) 0.0 (0.0-0.1) 10^3/u L Nucleated RBC % (a uto) 0 % Nucleated RBCs # 0.0 /100WBC PT 20.40 H (12.1-14.9) SECO NDS INR 1.71 H (0.8-1.2) APTT 39.2 H (23.9-36.7) SECO NDS Sodium 132 L (136-145) mmol/L Potassium 4.7 (3.5-5.1) mmol/L Chloride 95 L (98-107) mmol/L Carbon Dioxide 31 H (22-29) mmol/L Anion Gap 10.7 (5-19) BUN 29 H (8-23) mg/dL Creatinine 0.6 L (0.7-1.2) mg/dL GFR Calculation Not Reportable Glucose 95 (65-115) mg/dL Calculated Osmolal ity 280 L (285-295) mOsm/k g Lactic Acid (0.5-2.2) mmol/L Calcium 8.5 (8.5-10.5) mg/dL Total Bilirubin 0.7 (0.15-1.2) mg/dL AST 20 (0-40) U/L ALT 21 (0-41) U/L Alkaline Phosphata se 162 H (40-130) IU/L Troponin T Baselin e (0-15) ng/L NT-Pro-B Natriuret Pep 81875 H (0-450) pg/mL Total Protein 5.8 L (6.6-8.7) g/dL Albumin 2.8 L (3.5-5.2) g/dL Globulin 3.0 (1.3-4.6) g/dL Urine Color (Yellow) Urine Appearance (CLEAR) Urine pH (5-7) Ur Specific Gravit y (1.005-1.030) Urine Protein (Negative) Urine Glucose (UA) (Normal) Urine Ketones (Negative) Urine Blood (Negative) Urine Nitrate (Negative) Urine Bilirubin (Negative) Urine Urobilinogen (Negative) mg/dL Ur Leukocyte Iza ase (Negative) 10/15/20 10/15/20 10/15/20 Range/Units 09:40 09:42 10:05 WBC (4.0-10.0) 10^3/ uL RBC (4.1-5.3) 10^6/u L Hgb (11.7-16.6) g/dL Hct (42.0-52.0) % MCV (80-94) fL MCH (28.0-34.0) pg MCHC (30.0-36.0) g/dL RDW (12.1-15.1) % Plt Count (130-400) 10^3/c mm MPV (7.4-10.4) fL Neut % (Auto) % Lymph % (Auto) % [place] % (Auto) % Eos % (Auto) % Baso % (Auto) % Neut # (Auto) (1.8-7.7) 10^3/u L Lymph # (Auto) (0.8-4.8) 10^3/u L [place] # (Auto) (0.2-0.9) 10^3/u L Eos # (Auto) (0.0-0.8) 10^3/u L Baso # (Auto) (0.0-0.1) 10^3/u L Nucleated RBC % (a uto) % Nucleated RBCs # /100WBC PT (12.1-14.9) SECO NDS INR (0.8-1.2) APTT (23.9-36.7) SECO NDS Sodium (136-145) mmol/L Potassium (3.5-5.1) mmol/L Chloride (98-107) mmol/L Carbon Dioxide (22-29) mmol/L Anion Gap (5-19) BUN (8-23) mg/dL Creatinine (0.7-1.2) mg/dL GFR Calculation Glucose (65-115) mg/dL Calculated Osmolal ity (285-295) mOsm/k g Lactic Acid 1.1 (0.5-2.2) mmol/L Calcium (8.5-10.5) mg/dL Total Bilirubin (0.15-1.2) mg/dL AST (0-40) U/L ALT (0-41) U/L Alkaline Phosphata se (40-130) IU/L Troponin T Baselin e 68 H (0-15) ng/L NT-Pro-B Natriuret Pep (0-450) pg/mL Total Protein (6.6-8.7) g/dL Albumin (3.5-5.2) g/dL Globulin (1.3-4.6) g/dL Urine Color Straw (Yellow) Urine Appearance Clear (CLEAR) Urine pH 5 (5-7) Ur Specific Gravit y 1.015 (1.005-1.030) Urine Protein Neg (Negative) Urine Glucose (UA) Norm (Normal) Urine Ketones Negative (Negative) Urine Blood Neg (Negative) Urine Nitrate Negative (Negative) Urine Bilirubin Neg (Negative) Urine Urobilinogen Norm (Negative) mg/dL Ur Leukocyte Iza ase Negative (Negative) Imaging Data^: CXR: Attestation: I personally reviewed and interpreted this imaging study as follows: My impression: Patient appears to have pneumonia on the right with congestive heart failure and pulmonary edema. EKG Data^: EKG 1: Attestation: I personally reviewed and interpreted this EKG as follows: EKG interpretation date: 10/15/20 EKG interpretation time: 09:50 Prior EKG tracings: available for review Interpretation: Junctional rhythm with frequent PVCs left axis deviation right bundle branch block heart rate 80. Computer generated interpretation: Chest X-Ray 10/15/20 09:27 IMPRESSION: 1. Bilateral central bronchial inflammation/edema. 2. Bibasilar airspace disease which can be due to pneumonia and/or atelectasis. 3. Asymmetric pleural effusions, much larger on the right. 4. Cardiomegaly. Discharge Plan Discharge Patient Disposition: Admitted As Inpatient Clinical Impression: Pneumonia, Congestive heart failure, Pulmonary hypertension, Hypertension, Mitral regurgitation, Lower extremity edema Condition: Stable Coding Level of Care Code ED Casting Room Helper for Chg Fwd Exam Comprehensive
[2020-10-15 09:47] LABS: Add Urine Microscopic? NO; Charge for UA Resulting for Rev
[2020-10-15 09:56] LABS: Bilirubin Urine Neg (Negative); Blood Urine Neg (Negative); Glucose Urine UA Norm (Normal); Ketones Urine Negative (Negative); Leukocyte Esterase Urine Negative (Negative); Nitrate Urine Negative (Negative); Protein Urine Neg (Negative); Specific Gravity, Urine 1.015 (1.005-1.030); Urine Appearance Clear (CLEAR); Urine Color Straw (Yellow); Urobilinogen Urine Norm (Negative); pH Urine 5 (5-7)
[2020-10-15 10:01] LABS: Basophils % 0.2 %; Eosinophils # 0.1 10^3/uL (0.0-0.8); Eosinophils % 0.3 %; Lymphocytes # 0.7 10^3/uL (0.8-4.8); Lymphocytes % 3.9 %; Mean Corpuscular Hemoglobin 30.1 pg (28.0-34.0); Mean Platelet Volume 10.8 fL (7.4-10.4); Monocytes # 1.6 10^3/uL (0.2-0.9); Monocytes % 8.4 %; Neutrophils # 16.09 10^3/uL (1.8-7.7); Neutrophils % 85.9 %; Nucleated Red Blood Cells % 0 %; Platelet Count 513 10^3/cmm (130-400); Red Blood Count 2.99 10^6/uL (4.1-5.3); White Blood Count 18.8 10^3/uL (4.0-10.0)
[2020-10-15 10:18] LABS: INR 1.71 (0.8-1.2)
[2020-10-15 10:19] LABS: Partial Thromboplastin Time 39.2 SECONDS (23.9-36.7)
[2020-10-15 10:25] LABS: Troponin(5th) Baseline 68 ng/L (0-15)
[2020-10-15 10:35] LABS: Alanine Aminotransferase 21 U/L (0-41); Albumin Level 2.8 g/dL (3.5-5.2); Alkaline Phosphatase 162 IU/L (40-130); Anion Gap 10.7 (5-19); Aspartate Amino Transferase 20 U/L (0-40); Blood Urea Nitrogen 29 mg/dL (8-23); Calcium 8.5 mg/dL (8.5-10.5); Carbon Dioxide 31 mmol/L (22-29); Chloride 95 mmol/L (98-107); Creatinine Clr Calc Pharmacy 80.5459; Glucose 95 mg/dL (65-115); NT Pro B Type Natriuretic Pept 18100 pg/mL (0-450); Osmolality Calculated 280 mOsm/kg (285-295); Potassium 4.7 mmol/L (3.5-5.1); Sodium 132 mmol/L (136-145); Total Bilirubin 0.7 mg/dL (0.15-1.2); Total Protein 5.8 g/dL (6.6-8.7)
[2020-10-15] MEDS: ipratropium-albuterol 3 mL Neb INHALATION (10:39)
[2020-10-15 10:45] LABS: Lactic Sepsis W/Reflex 1.1 mmol/L (0.5-2.2)
[2020-10-15] MEDS: FUROsemide 10 mg/mL SDV 4mL 40 MG IVP (11:11)
[2020-10-15] MEDS: cefTRIAXone 1,000 MG in sodium chloride 0.9% (plus) 50 ML 100 MG IV (11:14)
[2020-10-15] MEDS: azithromycin 500 MG in sodium chloride 0.9% 250 ML 250 MG IV (11:50)
--- NOTE | 2020-10-15 13:18 | USCV_ITS ---
Jose Farias Age: 85 Gender: M : 1935 Exam Date: 10/15/2020 15:32 Ordering Phys: Hunter Constantino MD Technologist: Maryjo Garner [place] [facility] [place]: Shortness of breath BP: 131 / 77 HR: 85 Rhythm: Sinus Technical Quality: Adequate MEASUREMENTS (Male / Female) Normal Values 2D ECHO LV Diastolic Diameter PLAX 5.7 cm 4.2 - 5.9 / 3.9 - 5.3 cm LV Systolic Diameter PLAX 4.4 cm LV Chamber Size 6.4 cm IVS Diastolic Thickness 1.8 cm 0.6 - 1.0 / 0.6 - 0.9 cm IVS Systolic Thickness 2.3 cm LVPW Diastolic Thickness 1.2 cm 0.6 - 1.0 / 0.6 - 0.9 cm LVPW Systolic Thickness 1.0 cm RV Chamber Size 3.9 cm LVOT Diameter 2.2 cm LV Ejection Fraction 2D Teich 46.2 % LV Ejection Fraction MOD 2C 34.2 % LV Ejection Fraction 2C AL 36.0 % LA Diameter 5.2 cm LA Width 4.1 cm LA Height 6.3 cm RA Width 4.1 cm RA Height 7.1 cm Aorta at Sinotubular Diameter 3.1 cm M-MODE LV Diastolic Diameter MM 7.0 cm 4.2 - 5.9 / 3.9 - 5.3 cm LV Systolic Diameter MM 5.6 cm LV Ejection Fraction MM Teich 40.4 % IVS Diastolic Thickness MM 1.4 cm 0.6 - 1.0 / 0.6 - 0.9 cm IVS Systolic Thickness MM 1.7 cm LVPW Diastolic Thickness MM 1.2 cm 0.6 - 1.0 / 0.6 - 0.9 cm LVPW Systolic Thickness MM 1.6 cm RV Diastolic Diameter MM 1.5 cm Aortic Annulus Diameter 3.6 cm LA Ao Ratio MM 1.6 MV E Point Septal Separation 1.5 cm DOPPLER AV Peak Velocity 134.0 cm/s LVOT Peak Velocity 105.0 cm/s AV Area Cont Eq vti 2.4 cm squared AV Area Cont Eq pk 2.9 cm squared MV Area PHT 5.5 cm squared Mitral E to A Ratio 3.0 MV E' Velocity 57.6 cm/s Mitral E to MV E' Ratio 13.3 Mitral E to LV E' Lateral Ratio 10.7 Mitral E to LV E' Septal Ratio 17.6 TR Peak Velocity 321.3 cm/s TR Peak Gradient 41.3 mmHg TR Mean Velocity 243.2 cm/s TR Mean Gradient 25.2 mmHg TR Velocity Time Integral 91.2 cm TV Peak E Velocity 44.0 cm/s Right Atrial Pressure 15.0 mmHg Pulmonary Artery Systolic Pressu 56.3 mmHg PV Peak Velocity 59.0 cm/s RV Acceleration Time 0.1 s RV Ejection Time 0.3 s RV AcT/ET 0.3 FINDINGS Left Ventricle Normal left ventricular cavity size. Moderately decreased left ventricular systolic function. Left ventricular ejection fraction is estimated at 40 %. Moderate global left ventricular hypokinesis. Abnormal diastolic function. Abnormal septal motion consistent with pacemaker. Right Ventricle Right ventricle not well visualized. Normal right ventricular size and systolic function. Right ventricular systolic pressure 59 mmHg. Pacemaker wire visualized in the right ventricle. Right Atrium Mildly increased right atrial size. Right atrial pressure estimated at 15 mmHg. Pacemaker wire in the right atrial cavity. Left Atrium Moderately increased left atrial size. Mitral Valve Moderately thickened mitral valve. No mitral valve stenosis. Mild mitral valve regurgitation. Aortic Valve Mildly thickened trileaflet aortic valve. No aortic valve stenosis. No aortic valve regurgitation. Tricuspid Valve Structurally normal tricuspid valve. No tricuspid valve stenosis. [id number] tricuspid valve regurgitation. Pulmonic Valve Structurally normal pulmonic valve. No pulmonary valve stenosis. [id number] pulmonary valve regurgitation. Pericardium No pericardial effusion. Aorta Dilated inferior vena cava with decreased respiratory variation. CONCLUSIONS 1. Normal left ventricular cavity size. Moderately decreased left ventricular systolic function. Left ventricular ejection fraction is estimated at 40 %. Moderate global left ventricular hypokinesis. Abnormal diastolic function. 2. Normal right ventricular size and systolic function. 3. Severe pulmonary hypertension with pulmonary artery pressure estimated at 59 mmHg. 4. Mild mitral valve regurgitation. [id number] tricuspid valve regurgitation. 5. Dilated inferior vena cava with decreased respiratory variation. 6. When compared echocardiogram dated 03/21/2020, PA pressure and right atrial pressure has increased. Mary Ellen Saez MD (Electronically Signed) Final Date: 16 October 2020 15:03 S
--- NOTE | 2020-10-15 13:29 | P.HP_ITS ---
Providers/Chief Complaint Admitting Physician: Hunter Constantino MD Primary Care Provider: ERICKA Engel Chief Complaint: INDY LOWER EXT EDEMA History of Present Illness Jose Farias is a 85 year old male with a recent past medical history of a right total knee arthroplasty on 09/20/[address] Jurado, currently at [facility], history of bradycardia, pulmonary hypertension, mitral regurg, CHF, atrial fibrillation on Eliquis, who presents to [facility] due to complaints of shortness of breath. Patient tells me that the reason that he is here is because he is knee is bothering him, both knees have been replaced, recently the right knee, with the right knee bothering him more. He also tells me that he is currently located [facility], he has been there since his knee replacement, he has been doing fine, denies any shortness of breath, no cough, no fevers, he tells me that they were worried about his low oxygen levels so that is why they had him brought over to the emergency room. He denies any chest pain, no palpitations, no shortness of breath, no no lightheadedness, dizziness, legs are swollen. I have tried to reach out to [facility] several times today, however they have not picked up their phones, but according to ER physician patient's pulse ox were found to be low, and that they were holding his Lasix for the last 5 days, he did receive 80 mg of Lasix in the EMS. In the emergency room he was found to have hypoxia requiring up to 4 L, also bilateral extremity pitting edema, but also said to have pneumonia heart failure, hospitalist team was called for admission. Currently patient was transferred to the general medical floors, when I saw him on the second floor, is on 6 L, no respiratory distress, speaking full sentences, is alert to person place time, answers more most questions appr opriate, but is quite hard of hearing. Review of Systems Const: Denies: fever(s), chills or fatigue ENMT: Denies: nasal discharge or nasal congestion Card: Denies: chest pain Resp: Reports: dyspnea and non-productive cough GI: Denies: abdominal pain, nausea or vomiting : Denies: flank pain Musc: Denies: back pain Skin/Breast: Denies: rash Neuro: Denies: headache(s) Endo: Denies: polyuria Medications/Allergies Home Medications Medication Instructions Recorded Confirmed Last Taken Type multivitamin 1 tab PO DAILY@0800 05/07/19 10/15/20 10/14/20 History omega-3 fatty acids 1,000 mg 1,000 mg PO DAILY@0800 cap 05/07/19 10/15/20 10/14/20 History capsule Metamucil 1 tbsp PO DAILY@0800 03/06/20 10/15/20 10/14/20 History latanoprost 0.005 % eye drops 1 drp OPHTHALMIC (EYE) DAILY@0800 03/29/20 10/15/20 10/14/20 History amlodipine 5 mg PO DAILY@0800 05/15/20 10/15/20 10/14/20 History ascorbic acid (vitamin C) 500 mg 500 mg PO DAILY@0800 07/10/20 10/15/20 10/14/20 History tablet potassium chloride 20 mEq 30 meq PO DIRECTED tab 07/10/20 10/15/20 09/23/20 History tablet,extended release(part/cryst) furosemide 40 mg tablet See Rx Instructions .ROUTE 08/22/20 10/15/20 10/15/20 Rx .COMPLEX #45 tab apixaban [Eliquis] 2.5 mg PO BID@08,199909/23/20 10/15/20 10/14/20 History acetaminophen 500 mg PO Q8H 10/15/20 10/15/20 10/14/20 History ferrous sulfate 325 mg PO DAILY@0800 10/15/20 10/15/20 10/14/20 History levofloxacin [Levaquin] 750 mg PO Q2D 10/15/20 10/15/20 10/13/20 History Allergies Allergy/AdvReac Type Severity Reaction Status Date / Time lisinopril Allergy Unknown swelling Verified 10/03/20 10:03 spironolactone Allergy Unknown abdominal Verified 10/03/20 10:03 pain PFSH Acute 2 PFSH: Medical History (Updated 10/15/20 @ 13:45 by Hunter Constantino MD) Bradycardia by electrocardiography Chronic atrial fibrillation. 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 using laser Family History Other Diabetes Social History Smoking and tobacco status: former smoker Alcohol intake: never Vitals/I&O/Wt Last Vital Signs Temp 97.9 F 10/15/20 09:28 Pulse 88 10/15/20 12:06 Resp 20 H 10/15/20 12:06 BP 137/82 10/15/20 12:06 Pulse Ox 96 10/15/20 12:06 10/14/20 10/15/20 10/15/20 22:59 06:59 14:59 Intake Total 300 / 300 Balance 300 / 300 Weight last 48 hrs Weight 90.718 kg Physical Exam Const: COMMON NORMALS: no acute distress ORIENTATION/CONSCIOUSNESS: Yes awake, Yes oriented to person, Yes oriented to place and Yes oriented to time Resp: COMMON NORMALS: normal respiratory effort, No retractions and No use of accessory muscles AUSCULTATION: crackles Cardio: COMMON NORMALS: regular rate, regular rhythm, S1 normal heart sound present and S2 normal heart sound present HEART SOUNDS: no murmurs GI: COMMON NORMALS: Normal to inspection, nondistended, normoactive bowel sounds present, Soft to palpation, non-tender and No hepatosplenomegaly present Extremity: NARRATIVE EXTREMITY EXAM: 3+ pitting edema Neuro: COMMON NORMALS: patient oriented x3, CN's II-XII intact bilaterally and moves all extremities Data : 10/15/20 09:40 10/15/20 09:40 Micro: Microbiology 10/15/20 10:12 Blood Culture - Preliminary Blood SPECIMEN COLLECTED 10/15/20 10:05 Blood Culture - Preliminary Blood SPECIMEN COLLECTED A&P Assessment and plan (1) Acute respiratory failure with hypoxia: -Secondary to heart failure, and pneumonia -WBC 18.8, BNP over 18,000 -Currently on 6 L, chest x-ray showing bibasilar airspace disease, asymmetric pleural effusions Plan: -Monitor respiratory status closely -Titrate oxygen as needed -ABG, BiPAP schedule during the night -Continue Rocephin azithromycin -Sputum cultures, blood cultures, urine bacterial antigens -DuoNeb treatments as needed -Metolazone, Bumex 1 mg every 12 hours -Place Estrada, arterial Doppler flow restrictions 1500 cc -Cardiac echo ordered -Follow EKGs, follow troponins, watch for chest pain -Venous ultrasound bilateral extremities to rule out DVT -Patient is on Eliquis for DVT prophylaxis -DNR/DNI Status: Acute (2) Diastolic CHF: Status: Acute (3) Pneumonia: Status: Acute (4) Lower extremity edema: Status: Acute (5) Coronary artery disease: Status: Acute Qualifiers: Coronary Disease-Associated Artery/Lesion type: [place] artery [place] vs. transplanted heart: [place] heart Associated angina: without angina Qualified Code(s): I25.10 - Atherosclerotic heart disease of [place] coronary artery without angina pectoris (6) Atrial fibrillation: Status: Acute (7) NSTEMI (non-ST elevated myocardial infarction): Status: Acute Attestations Medical Necessity Statement*: Patient requires hospitalization, inpatient, greater than 2 midnights, for acute respiratory failure with hypoxia secondary to pneumonia, CHF, NSTEMI, Coding Level of Care Code Acute Foam Rubber Mixer for [facility] Fwd Diagnoses Acute respiratory failure with hypoxia J96.01 Diastolic CHF I50.30 Pneumonia J18.9 Lower extremity edema R60.0 Coronary artery disease I25.10 Coronary Disease-Associated Artery/Lesion type: [place] artery [place] vs. transplanted heart: [place] heart Associated angina: without angina Atrial fibrillation I48.91 NSTEMI (non-ST elevated myocardial infarction) I21.4
--- NOTE | 2020-10-15 13:34 | XRR_ITS ---
PROCEDURE INFORMATION: Exam: XR Right Knee Exam date and time: 10/15/2020 1:34 PM Age: 85 years old Clinical indication: Pain; Knee; Right; Additional info: Knee paina [place] dwelling TECHNIQUE: Imaging protocol: XR Right knee. Views: 1 or 2 views. COMPARISON: CR XR knee RT 1-2V [id number] 09/18/2020 10:43 AM FINDINGS: Bones/joints: Total knee arthroplasty in place. No evidence of hardware complication. No radiographic evidence of acute fracture or dislocation. Alignment anatomic. Soft tissues: Soft tissue swelling. XR/XR knee RT 1-2V 10008 IMPRESSION: 1. Total knee arthroplasty in place without evidence of hardware complication. 2. Soft tissue swelling.
--- NOTE | 2020-10-15 13:35 | USR_ITS ---
PROCEDURE INFORMATION: Exam: US Duplex Lower Extremity Veins, Bilateral Exam date and time: 10/15/2020 1:35 PM Age: 85 years old Clinical indication: Pain; Edema, localized; Lower extremity, bilateral; Leg, lower; Additional info: Leg pain TECHNIQUE: Imaging protocol: Real-time duplex ultrasound of the extremities with 2-D cole scale, color Doppler flow and spectral waveform analysis with image documentation. Complete exam focused on the bilateral lower extremity veins. COMPARISON: No relevant prior studies available. FINDINGS: Right deep veins: Unremarkable. The common femoral, femoral, proximal profunda femoral, popliteal, posterior tibial and peroneal veins are patent without thrombus. Normal Doppler waveforms. Normal compressibility and/or augmentation response. Right superficial veins: Saphenofemoral junction is patent without thrombus. Left deep veins: Hypoechoic, nonocclusive thrombus in the distal popliteal and peroneal veins. The common femoral, femoral, proximal profunda femoral and posterior tibial veins are patent without thrombus. Left superficial veins: Saphenofemoral junction is patent without thrombus. Soft tissues: Diffuse subcutaneous edema. US/CV venous duplex [facility] [id number] IMPRESSION: Hypoechoic, nonocclusive thrombus in the left distal popliteal and peroneal veins
[2020-10-15 13:36] LABS: Troponin 5 2HR 66.45 ng/L (0-15)
[2020-10-15 13:37] LABS: Troponin 5 2HR Delta -1.55 ABS# (0-10)
[2020-10-15 13:50] LABS: Chol HDL Ratio 2.45 mg/dL (1.0-5.00); Cholesterol 76 mg/dL (0-200); HDL Cholesterol 31 mg/dL (60-100); LDL Cholesterol Calculated 34 mg/dL (50-129); Triglycerides 54 mg/dL (0-150)
[2020-10-15 14:14] LABS: Add Urine Microscopic? NO; Charge for UA Resulting for Rev
[2020-10-15 14:14] LABS: Procalcitonin 0.25 ng/mL (0-0.5)
[2020-10-15 14:23] LABS: Bilirubin Urine Neg (Negative); Blood Urine Neg (Negative); Glucose Urine UA Norm (Normal); Ketones Urine Negative (Negative); Leukocyte Esterase Urine Negative (Negative); Nitrate Urine Negative (Negative); Protein Urine Neg (Negative); Specific Gravity, Urine 1.015 (1.005-1.030); Urine Appearance Clear (CLEAR); Urine Color Straw (Yellow); Urobilinogen Urine Norm (Negative); pH Urine 5 (5-7)
[2020-10-15] MEDS: metOLazone 5 MG Tablet PO (14:42)
[2020-10-15] MEDS: bumetanide 0.25 mg/mL SDV 4 mL 1 MG IV (14:43)
[2020-10-15] MEDS: pantoprazole 40 mg SDV IVP (14:43)
--- NOTE | 2020-10-15 14:48 | PC.NURSE ---
bruise noted to right upper arm front and back, left upper arm back, left lateral chest and right posterior thigh.
[2020-10-15 15:35] LABS: ABG PCO2 51.2 mmHg (35-45); ABG PH Result 7.43 (7.35-7.45); Arterial Blood Gas Hematocrit 31.6 % (42-52); Base Excess ABG 8.1 mmol/L (-2.0-2.0); Blood Gas Allen Test Pos; Blood Gas Operator Identificat glc; Blood Gas Sample Site Radial, left; Blood Gas Sample Type Arterial; HCO3 ABG 33.6 mmol/L (22-26); Oxygen Device NC; PO2 ABG 76.6 mmHg (80.0-100.0)
--- NOTE | 2020-10-15 15:57 | PC.NURSE ---
called patient's daughter as requested and notified her that patient is admitted. Patient's daughter Dorinda Lombardo said she is on her way to see patient.
[2020-10-15 16:56] LABS: Troponin 5 6HR 65.89 ng/L (0-15)
[2020-10-15 16:57] LABS: Troponin 5 6HR Delta -2.11 ng/L (0-12)
[2020-10-15] MEDS: apixaban 5 mg Tablet PO (20:51)
[2020-10-16] VITALS (15 sets, daily range): BP systolic 107–126; BP diastolic 55–73; PULSE 61–108; RESP 18–25; TEMP 36.4–37.1; O2SAT 91–98
[2020-10-16] MEDS: pantoprazole 40 mg SDV IVP ×2 (01:02→14:29)
[2020-10-16] MEDS: bumetanide 0.25 mg/mL SDV 4 mL 1 MG IV ×3 (01:02→22:53)
[2020-10-16 06:09] LABS: Basophils % 0.2 %; Eosinophils # 0.1 10^3/uL (0.0-0.8); Eosinophils % 0.4 %; Hematocrit 28.5 % (42.0-52.0); Hemoglobin 8.8 g/dL (11.7-16.6); Lymphocytes # 0.6 10^3/uL (0.8-4.8); Lymphocytes % 3.8 %; Mean Corpuscular HGB Conc 30.9 g/dL (30.0-36.0); Mean Corpuscular Hemoglobin 30.3 pg (28.0-34.0); Mean Corpuscular Volume 98.3 fL (80-94); Mean Platelet Volume 10.1 fL (7.4-10.4); Monocytes # 1.6 10^3/uL (0.2-0.9); Monocytes % 9.5 %; Neutrophils # 14.31 10^3/uL (1.8-7.7); Neutrophils % 84.7 %; Nucleated Red Blood Cells % 0 %; Platelet Count 491 10^3/cmm (130-400); Red Cell Distribution Width 15.9 % (12.1-15.1); White Blood Count 16.9 10^3/uL (4.0-10.0)
[2020-10-16 06:29] LABS: Lactic Sepsis W/Reflex 0.9 mmol/L (0.5-2.2)
[2020-10-16 06:32] LABS: Alanine Aminotransferase 16 U/L (0-41); Albumin Level 2.6 g/dL (3.5-5.2); Alkaline Phosphatase 147 IU/L (40-130); Anion Gap 11.5 (5-19); Aspartate Amino Transferase 16 U/L (0-40); Blood Urea Nitrogen 28 mg/dL (8-23); Calcium 8.4 mg/dL (8.5-10.5); Carbon Dioxide 35 mmol/L (22-29); Chloride 100 mmol/L (98-107); Creatinine Clr Calc Pharmacy 80.5459; Globulin 3.4 g/dL (1.3-4.6); Glucose 109 mg/dL (65-115); NT Pro B Type Natriuretic Pept 20233 pg/mL (0-450); Osmolality Calculated 300 mOsm/kg (285-295); Phosphorus 5.3 mg/dL (2.5-4.5); Potassium 4.5 mmol/L (3.5-5.1); Sodium 142 mmol/L (136-145); Total Bilirubin 0.5 mg/dL (0.15-1.2)
[2020-10-16] MEDS: ascorbic acid 500 mg Tablet PO (08:01)
[2020-10-16] MEDS: latanoprost 0.005% Op Soln 2.5 mL Btl 1 DROP EYE-BOTH (08:02)
[2020-10-16] MEDS: ferrous sulfate EC 325 mg Tablet PO (08:02)
[2020-10-16] MEDS: amlodipine 5 mg Tablet PO (08:02)
[2020-10-16] MEDS: apixaban 5 mg Tablet PO ×2 (08:02→20:09)
--- NOTE | 2020-10-16 08:24 | PC.RESP ---
Pt unable to take effective treatment.
--- NOTE | 2020-10-16 09:06 | CT_ITS ---
WS: [id number] CTA OF THE CHEST WITH PULMONARY EMBOLISM PROTOCOL TECHNIQUE: High-resolution contrast enhanced CTA of the chest with coronal and sagittal reformatted i mages with pulmonary embolism protocol. MIP images are also reviewed. CLINICAL INFORMATION: LLE nonocclusive dvt, now sob, evalauet for pe COMPARISON: None. DLP: 508.[address] scans at [facility] use at least one of these dose optimization techniques: automat ed exposure control; mA and/or kV adjustment per patient size (includes targeted exams where dose is matched to clinical indication); or iterative reconstruction. FINDINGS: Proximal main pulmonary arteries are normal. Normal segmental pulmonary arteries. Subsegmental pulmon cyn arteries not well evaluated due to motion artifact. Moderate to large right and small left pleura l effusions with compressive atelectasis. Normal caliber thoracic aorta. Large esophageal hiatal hernia with partial intrathoracic stomach. Diffuse body wall anasarca. Modera te thoracic kyphosis. CT/CT angio chest PE protcl [id number] IMPRESSION: Some images degraded by motion. 1. No evidence of pulmonary embolus. Subsegmental pulmonary arteries not well evaluated. 2. Moderate to large right and small left pleural effusions with compressive a telectasis in the lung bases. 3. Large esophageal hiatal hernia with partial intrathoracic stomach. 4. Diffuse body wall anasarca.
[2020-10-16] MEDS: iohexol 350 mg/mL 100 mL Btl IV (10:27)
[2020-10-16] MEDS: sucralfate 1 gm Tablet PO ×2 (10:58→17:20)
[2020-10-16] MEDS: cefTRIAXone 1,000 MG in sodium chloride 0.9% (plus) 50 ML 100 MG IV (10:58)
[2020-10-16] MEDS: metOLazone 5 MG Tablet PO (10:58)
[2020-10-16 11:18] LABS: Reticulocyte % 4.4 % (0.5-2.0)
[2020-10-16] MEDS: azithromycin 500 MG in sodium chloride 0.9% 250 ML 250 MG IV (11:38)
[2020-10-16 11:52] LABS: Folate Level 13.2 ng/mL (4.5-32.2)
[2020-10-16 11:53] LABS: Ferritin 264 ng/mL (30-400); Iron 14 ug/dL (59-158); Vitamin B12 1496 pg/mL (232-1245)
[2020-10-16 12:33] LABS: LAB Peripheral Smear Sent for Review
--- NOTE | 2020-10-16 15:36 | PC.OT ---
OT EVALUATION ATTEMPTED. PATIENT DOES NOT AWAKEN TO KNOCKING ON DOOR OR NAME SAID LOUDLY SEVERAL TIMES. WILL ATTEMPT AGAIN AT A LATER TIME.
[2020-10-16] MEDS: ipratropium-albuterol 3 mL Neb INHALATION (15:47)
--- NOTE | 2020-10-16 16:32 | PM.PN ---
Subjective Subjective: Interval history: Patient was seen this morning, he tells me that he is doing better, still on 5 L, denies chest pain, no shortness of breath, denies any bloody or black stools, denies any history of GI bleeds Vitals/I&O/Wt Last Vital Signs Temp 97.8 F 10/16/20 11:40 Pulse 61 10/16/20 15:54 Resp 20 H 10/16/20 15:50 BP 107/64 10/16/20 11:40 Pulse Ox 95 10/16/20 15:50 10/16/20 10/16/20 10/16/20 06:59 14:59 22:59 Intake Total 420 / 420 Output Total 725 / 1775 400 / 400 Balance -725 / -1235 Weight last 48 hrs Weight 90.718 kg Physical Exam Const: COMMON NORMALS: no acute distress ORIENTATION/CONSCIOUSNESS: Yes awake, Yes oriented to person, Yes oriented to place and Yes oriented to time Resp: COMMON NORMALS: normal respiratory effort, No retractions and No use of accessory muscles AUSCULTATION: crackles Cardio: COMMON NORMALS: regular rate, regular rhythm, S1 normal heart sound present and S2 normal heart sound present RATE: regular rate RHYTHM: regular rhythm HEART SOUNDS: S1 normal heart sound present and S2 normal heart sound present GI: COMMON NORMALS: Normal to inspection, nondistended, normoactive bowel sounds present, Soft to palpation and non-tender PALPATION: Yes Soft to palpation Extremity: NARRATIVE EXTREMITY EXAM: Generalized anasarca, 2+ pitting edema Neuro: SENSORIUM/ORIENTATION: Yes oriented to person, Yes oriented to place and Yes oriented to time Urinary Catheter Management^: Estrada: Cath Placed During This Visit: yes Reason for Continuing Indwelling Catheter: Accurate Measurement of Urinary Output in Critically Ill Patients Urinary Catheter Date of Insertion: 10/15/20 Urinary Catheter Time of Insertion: 14:04 Data : 10/16/20 05:54 10/16/20 05:54 Micro: Microbiology 10/15/20 10:12 Blood Culture - Preliminary Blood NEGATIVE TO DATE 10/15/20 10:05 Blood Culture - Preliminary Blood NEGATIVE TO DATE 10/15/20 14:00 Bacterial Antigens - Final Urine,Voided A&P Assessment and plan (1) Acute respiratory failure with hypoxia: -Secondary to heart failure, and pneumonia -Currently on 5 L, with anasarca, 2+ pitting edema bilaterally -CT angiogram of the chest does not show pulmonary emboli, moderate to large right and small left pleural effusion with compressive atelectasis, diffuse body wall anasarca Plan: -Monitor respiratory status closely -Titrate oxygen as needed BiPAP schedule during the night -Continue Rocephin and azithromycin -Sputum cultures, blood cultures, urine bacterial antigens -DuoNeb treatments as needed -Add metolazone 5 mg daily, Bumex 1 mg every 8 hours scheduled, with potassium replacement -Place Estrada, arterial Doppler flow restrictions 1500 cc -Left lower extremity shows Hypoechoic, nonocclusive thrombus in the left distal popliteal and peroneal veins, Eliquis dose increased to 5 mg twice daily -CT angiogram unremarkable for pulmonary emboli -Cardiac echo ordered: 1. Normal left ventricular cavity size. Moderately decreased left ventricular systolic function. Left ventricular ejection fraction is estimated at 40 %. Moderate global left ventricular hypokinesis. Abnormal diastolic function. 2. Normal right ventricular size and systolic function. 3. Severe pulmonary hypertension with pulmonary artery pressure estimated at 59 mmHg. 4. Mild mitral valve regurgitation. Pkfv-rq-ggghnndh tricuspid valve regurgitation. 5. Dilated inferior vena cava with decreased respiratory variation. 6. When compared echocardiogram dated 03/21/2020, PA pressure and right atrial pressure has increased. -NSTEMI, no active chest pain, continue aspirin, statin -Continue telemetry monitoring, monitor for chest pain -Evidence of iron deficiency anemia, low iron levels at 15, normal ferritin, no history of GI bleed, no bloody or black stools, Hemoccult stool, on Eliquis, monitor hemodynamics, hemoglobin 8.8 -Continue Protonix 40 twice daily, Carafate -Patient is on Eliquis for DVT prophylaxis -DNR/DNI Status: Acute (2) Diastolic CHF: Status: Acute (3) Pneumonia: Status: Acute (4) Lower extremity edema: Status: Acute (5) Coronary artery disease: Status: Acute Qualifiers: Coronary Disease-Associated Artery/Lesion type: [place] artery [place] vs. 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 transplanted heart: [place] heart Associated angina: without angina Atrial fibrillation I48.91 NSTEMI (non-ST elevated myocardial infarction) I21.4 Left leg DVT I82.402
[2020-10-16] MEDS: potassium chloride ER 20 mEq Tablet 40 MEQ PO (17:20)
[2020-10-16] MEDS: atorvastatin 40 mg Tablet PO (20:09)
[2020-10-16 20:18] LABS: Glucose Point of Care 155 mg/dL (70-110)
[2020-10-17] VITALS (13 sets, daily range): BP systolic 102–136; BP diastolic 58–76; PULSE 62–91; RESP 17–20; TEMP 36.5–36.9; O2SAT 90–95
[2020-10-17] MEDS: pantoprazole 40 mg SDV IVP ×2 (00:51→14:35)
[2020-10-17 05:33] LABS: Basophils % 0.2 %; Eosinophils % 0.2 %; Hematocrit 28.9 % (42.0-52.0); Hemoglobin 8.7 g/dL (11.7-16.6); Lymphocytes # 0.6 10^3/uL (0.8-4.8); Lymphocytes % 4.8 %; Mean Corpuscular HGB Conc 30.1 g/dL (30.0-36.0); Mean Corpuscular Hemoglobin 29.9 pg (28.0-34.0); Mean Corpuscular Volume 99.3 fL (80-94); Monocytes # 1.4 10^3/uL (0.2-0.9); Monocytes % 10.5 %; Neutrophils # 10.94 10^3/uL (1.8-7.7); Neutrophils % 83.1 %; Nucleated Red Blood Cells % 0 %; Platelet Count 432 10^3/cmm (130-400); Red Blood Count 2.91 10^6/uL (4.1-5.3); Red Cell Distribution Width 15.9 % (12.1-15.1); White Blood Count 13.2 10^3/uL (4.0-10.0)
[2020-10-17 05:50] LABS: Alanine Aminotransferase 14 U/L (0-41); Albumin Level 2.3 g/dL (3.5-5.2); Alkaline Phosphatase 130 IU/L (40-130); Anion Gap 10.9 (5-19); Aspartate Amino Transferase 15 U/L (0-40); Blood Urea Nitrogen 28 mg/dL (8-23); Calcium 7.8 mg/dL (8.5-10.5); Carbon Dioxide 37 mmol/L (22-29); Chloride 101 mmol/L (98-107); Creatinine Clr Calc Pharmacy 80.5459; Globulin 3.5 g/dL (1.3-4.6); Glucose 111 mg/dL (65-115); Osmolality Calculated 306 mOsm/kg (285-295); Phosphorus 4.4 mg/dL (2.5-4.5); Potassium 3.9 mmol/L (3.5-5.1); Sodium 145 mmol/L (136-145); Total Bilirubin 0.4 mg/dL (0.15-1.2); Total Protein 5.8 g/dL (6.6-8.7)
[2020-10-17] MEDS: bumetanide 0.25 mg/mL SDV 4 mL 1 MG IV ×3 (06:17→22:45)
[2020-10-17] MEDS: sucralfate 1 gm Tablet PO ×2 (06:19→15:59)
[2020-10-17] MEDS: ascorbic acid 500 mg Tablet PO (08:35)
[2020-10-17] MEDS: amlodipine 5 mg Tablet PO (08:35)
[2020-10-17] MEDS: latanoprost 0.005% Op Soln 2.5 mL Btl 1 DROP EYE-BOTH (08:35)
[2020-10-17] MEDS: apixaban 5 mg Tablet PO ×2 (08:35→20:18)
[2020-10-17] MEDS: metOLazone 5 MG Tablet PO (08:35)
[2020-10-17] MEDS: aspirin 81 mg EC Tablet PO (08:35)
[2020-10-17] MEDS: ferrous sulfate EC 325 mg Tablet PO (08:35)
[2020-10-17] MEDS: cefTRIAXone 1,000 MG in sodium chloride 0.9% (plus) 50 ML 100 MG IV (08:35)
[2020-10-17] MEDS: ipratropium-albuterol 3 mL Neb INHALATION (08:45)
--- NOTE | 2020-10-17 09:46 | PC.NURSE ---
patient's oxygen on 5L [place] was 79%. notified Heidi, RT. 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 notified Heidi, RT
[2020-10-17] MEDS: potassium chloride ER 20 mEq Tablet 40 MEQ PO (11:39)
[2020-10-17] MEDS: azithromycin 250 mg Tablet PO (11:52)
--- NOTE | 2020-10-17 12:36 | P.PN_ITS ---
Subjective Subjective: Interval history: This morning patient was examined, he tells me that his swelling is still persistent, he has not work with physical therapy yet as he has a blood clot, but is willing to work with physical therapy today, no chest pain, he still on 5 L, no fevers overnight, no cough Vitals/I&O/Wt Last Vital Signs Temp 98.0 F 10/17/20 11:19 Pulse 78 10/17/20 11:19 Resp 20 H 10/17/20 11:19 BP 128/62 10/17/20 11:19 Pulse Ox 90 10/17/20 11:19 10/16/20 10/17/20 10/17/20 22:59 06:59 14:59 Intake Total 240 / 660 110 / 110 Output Total 2049 / 2449 800 / 3250 200 / 200 Balance -2049 / -2029 -560 / -2590 -90 / -90 Physical Exam Const: COMMON NORMALS: no acute distress and patient oriented x3 ORIENTATION/CONSCIOUSNESS: Yes oriented to person, Yes oriented to place and Yes oriented to time Resp: COMMON NORMALS: normal respiratory effort, No retractions, No use of acc essory muscles and clear to auscultation bilaterally AUSCULTATION: clear to auscultation bilaterally Cardio: COMMON NORMALS: regular rate, regular rhythm, S1 normal heart sound present and S2 normal heart sound present RATE: regular rate RHYTHM: regular rhythm HEART SOUNDS: S1 normal heart sound present, S2 normal heart sound present and no murmurs GI: COMMON NORMALS: Normal to inspection, nondistended, normoactive bowel sounds present, Soft to palpation, non-tender and No hepatosplenomegaly present PALPATION: Yes Soft to palpation and Yes No hepatosplenomegaly present Extremity: NARRATIVE EXTREMITY EXAM: Generalized anasarca, 2+ pitting edema Neuro: COMMON NORMALS: patient oriented x3, CN's II-XII intact bilaterally and moves all extremities SENSORIUM/ORIENTATION: Yes oriented to person, Yes oriented to place and Yes oriented to time Urinary Catheter Management^: Estrada: Cath Placed During This Visit: yes Reason for Continuing Indwelling Catheter: Other Urinary Catheter Date of Insertion: 10/15/20 Urinary Catheter Time of Insertion: 14:04 Data : 10/17/20 05:19 10/17/20 05:19 Micro: Microbiology 10/15/20 10:12 Blood Culture - Preliminary Blood NEGATIVE TO DATE 10/15/20 10:05 Blood Culture - Preliminary Blood NEGATIVE TO DATE A&P Assessment and plan (1) Acute respiratory failure with hypoxia: -Secondary to heart failure, and pneumonia -Currently on 5 L, with anasarca, 2+ pitting edema bilaterally, is -4 L since admission -CT angiogram of the chest does not show pulmonary emboli, moderate to large right and small left pleural effusion with compressive atelectasis, diffuse body wall anasarca Plan: -Monitor respiratory status closely -Titrate oxygen as needed BiPAP schedule during the night -Continue Rocephin and azithromycin -Sputum cultures, blood cultures, urine bacterial antigens -DuoNeb treatments as needed -Add metolazone 10mg daily, Bumex 1 mg every 8 hours scheduled, with potassium replacement -Estrada catheter in place, fluid restrictions 1500 cc -Left lower extremity shows Hypoechoic, nonocclusive thrombus in the left distal popliteal and peroneal veins, Eliquis dose increased to 5 mg twice daily -CT angiogram unremarkable for pulmonary emboli -Cardiac echo ordered: 1. Normal left ventricular cavity size. Moderately decreased left ventricular systolic function. Left ventricular ejection fraction is estimated at 40 %. Moderate global left ventricular hypokinesis. Abnormal diastolic function. 2. Normal right ventricular size and systolic function. 3. Severe pulmonary hypertension with pulmonary artery pressure estimated at 59 mmHg. 4. Mild mitral valve regurgitation. Sgjz-tc-ovhorwty tricuspid valve regurgitation. 5. Dilated inferior vena cava with decreased respiratory variation. 6. When compared echocardiogram dated 03/21/2020, PA pressure and right atrial pressure has increased. -NSTEMI, no active chest pain, continue aspirin, statin -Continue telemetry monitoring, monitor for chest pain -Evidence of iron deficiency anemia, low iron levels at 15, normal ferritin, no history of GI bleed, no bloody or black stools, Hemoccult stool, on Eliquis, monitor hemodynamics, hemoglobin 8.7 -Continue Protonix 40 twice daily, Carafate -Patient is on Eliquis for DVT prophylaxis -DNR/DNI Plan for today PT OT, continue diuresis, continue antibiotics, hopefully can discharge the next 2448 hrs. Status: Acute (2) Diastolic CHF: Status: Acute (3) Pneumonia: Status: Acute (4) Lower extremity edema: Status: Acute (5) Coronary artery disease: Status: Acute Qualifiers: Coronary Disease-Associated Artery/Lesion type: [place] artery [place] vs. transplanted heart: [place] heart Associated angina: without angina Qualified Code(s): I25.10 - Atherosclerotic heart disease of [place] coronary artery without angina pectoris (6) Atrial fibrillation: Status: Acute (7) NSTEMI (non-ST elevated myocardial infarction): Status: Acute (8) Left leg DVT: Status: Acute Attestations Medical Necessity Statement*: Patient requires hospitalization, congestive heart failure, for pneumonia, left lower extremity DVT Coding Level of Care Code Acute Infant Caregiver for [facility] Fwd Diagnoses Acute respiratory failure with hypoxia J96.01 Diastolic CHF I50.30 Pneumonia J18.9 Lower extremity edema R60.0 Coronary artery disease I25.10 Coronary Disease-Associated Artery/Lesion type: [place] artery [place] vs. transplanted heart: [place] heart Associated angina: without angina Atrial fibrillation I48.91 NSTEMI (non-ST elevated myocardial infarction) I21.4 Left leg DVT I82.402
[2020-10-17] MEDS: atorvastatin 40 mg Tablet PO (20:18)
[2020-10-18] VITALS (14 sets, daily range): BP systolic 110–132; BP diastolic 59–72; PULSE 65–98; RESP 15–40; TEMP 36.5–36.9; O2SAT 84–97
[2020-10-18] MEDS: pantoprazole 40 mg SDV IVP ×2 (01:46→14:11)
[2020-10-18] MEDS: bumetanide 0.25 mg/mL SDV 4 mL 1 MG IV ×3 (06:01→21:14)
[2020-10-18] MEDS: sucralfate 1 gm Tablet PO ×2 (06:02→17:53)
[2020-10-18 06:32] LABS: Basophils % 0.4 %; Eosinophils # 0.1 10^3/uL (0.0-0.8); Eosinophils % 0.4 %; Hematocrit 26.6 % (42.0-52.0); Lymphocytes # 0.6 10^3/uL (0.8-4.8); Lymphocytes % 5.6 %; Mean Corpuscular HGB Conc 30.1 g/dL (30.0-36.0); Mean Corpuscular Hemoglobin 29.6 pg (28.0-34.0); Mean Corpuscular Volume 98.5 fL (80-94); Mean Platelet Volume 10.1 fL (7.4-10.4); Monocytes # 1.1 10^3/uL (0.2-0.9); Monocytes % 10.1 %; Neutrophils # 9.34 10^3/uL (1.8-7.7); Neutrophils % 82.7 %; Nucleated Red Blood Cells % 0 %; Platelet Count 436 10^3/cmm (130-400); Red Cell Distribution Width 15.6 % (12.1-15.1); White Blood Count 11.3 10^3/uL (4.0-10.0)
[2020-10-18 07:00] LABS: Alanine Aminotransferase 13 U/L (0-41); Albumin Level 2.2 g/dL (3.5-5.2); Alkaline Phosphatase 119 IU/L (40-130); Anion Gap 6.4 (5-19); Aspartate Amino Transferase 20 U/L (0-40); Blood Urea Nitrogen 27 mg/dL (8-23); Chloride 96 mmol/L (98-107); Creatinine Clr Calc Pharmacy 80.5459; Globulin 3.5 g/dL (1.3-4.6); Glucose 97 mg/dL (65-115); Magnesium 1.9 mg/dL (1.7-2.3); NT Pro B Type Natriuretic Pept 18827 pg/mL (0-450); Osmolality Calculated 299 mOsm/kg (285-295); Phosphorus 3.8 mg/dL (2.5-4.5); Potassium 3.4 mmol/L (3.5-5.1); Sodium 142 mmol/L (136-145); Total Bilirubin 0.5 mg/dL (0.15-1.2); Total Protein 5.7 g/dL (6.6-8.7)
[2020-10-18 07:10] LABS: INR 1.78 (0.8-1.2)
[2020-10-18 07:42] LABS: Carbon Dioxide 43 mmol/L (22-29)
[2020-10-18] MEDS: metOLazone 5 MG Tablet 10 MG PO (10:06)
[2020-10-18] MEDS: aspirin 81 mg EC Tablet PO (10:06)
[2020-10-18] MEDS: potassium chloride ER 20 mEq Tablet 40 MEQ PO (10:06)
[2020-10-18] MEDS: amlodipine 5 mg Tablet PO (10:07)
[2020-10-18] MEDS: acetaZOLAMIDE 250 mg Tablet PO ×2 (10:07→21:10)
[2020-10-18] MEDS: ascorbic acid 500 mg Tablet PO (10:07)
[2020-10-18] MEDS: azithromycin 250 mg Tablet PO (10:07)
[2020-10-18] MEDS: ferrous sulfate EC 325 mg Tablet PO (10:07)
[2020-10-18] MEDS: cefTRIAXone 1,000 MG in sodium chloride 0.9% (plus) 50 ML 100 MG IV (10:07)
--- NOTE | 2020-10-18 10:10 | XR_ITS ---
WS: [id number] Exam: XR knee LT 1-2V [id number] Date/Time of Exam: 10/18/2020 10:12 AM Reason For Exam: patellar disloaction Comparison 09/23/2020. A total knee prosthesis is in place. There is lateral dislocation of the patella unchanged in appeara nce. The femoral and tibial components of the prosthesis show no sign of loosening or fracture. No juvenal int effusion is seen. XR/XR knee LT 1-2V [id number] IMPRESSION: 1. Chronic lateral dislocation of the patella. 2. The femoral and tibial components of the total knee prosthesis remain intact .
[2020-10-18] MEDS: apixaban 5 mg Tablet PO ×2 (10:13→20:04)
[2020-10-18] MEDS: latanoprost 0.005% Op Soln 2.5 mL Btl 1 DROP EYE-BOTH (10:45)
--- NOTE | 2020-10-18 12:08 | P.PN_ITS ---
Subjective Subjective: Interval history: patient was seen this morning he was placed on oxy mask 2L as he was found to be more of a mouth breather yesterday, he has not gotten out of bed as of yet, but phyiscal therapy will get him out of bed, he has a good appetite, no chest pain, no shortness of breath Vitals/I&O/Wt Last Vital Signs Temp 97.9 F 10/18/20 11:31 Pulse 75 10/18/20 11:31 Resp 32 H 10/18/20 11:31 BP 116/59 10/18/20 11:31 Pulse Ox 93 10/18/20 11:31 10/17/20 10/18/20 10/18/20 22:59 06:59 14:59 Intake Total 490 / 600 404 / 404 Output Total 2100 / 2300 750 / 3050 850 / 850 Balance -1610 / -1700 -750 / -2450 -446 / -446 Physical Exam Const: COMMON NORMALS: no acute distress and patient oriented x3 Resp: COMMON NORMALS: normal respiratory effort, No retractions, No use of accessory muscles and clear to auscultation bilaterally AUSCULTATION: clear to auscultation bilaterally Cardio: COMMON NORMALS: regular rate, regular rhythm, S1 normal heart sound present and S2 normal heart sound present RATE: regular rate RHYTHM: regular rhythm HEART SOUNDS: S1 normal heart sound present and S2 normal heart sound present GI: COMMON NORMALS: Normal to inspection, nondistended, normoactive bowel sounds present and Soft to palpation PALPATION: Yes Soft to palpation Extremity: COMMON NORMALS: no pedal edema NARRATIVE EXTREMITY EXAM: Generalized anasarca, 2+ pitting edema Neuro: COMMON NORMALS: patient oriented x3 Psych: COMMON NORMALS: mental status grossly normal Urinary Catheter Management^: Estrada: Cath Placed During This Visit: yes Reason for Continuing Indwelling Catheter: Acute Urinary Retention or Obstructi on Urinary Catheter Date of Insertion: 10/15/20 Urinary Catheter Time of Insertion: 14:04 Data : 10/18/20 05:42 10/18/20 05:42 A&P Assessment and plan (1) Acute respiratory failure with hypoxia: -Secondary to heart failure systolic and diastolic, and pneumonia -WBC 11.3, BNP over 18,827 -Currently on 2L, chest x-ray showing bibasilar airspace disease, asymmetric pleural effusions, >7L diureses so far Plan: -Monitor respiratory status closely -Titrate oxygen as needed -ABG, BiPAP schedule during the night -Continue Rocephin and azithromycin -Sputum cultures, blood cultures, urine bacterial antigens -DuoNeb treatments as needed -Metolazone 10mg daily, Bumex 1 mg every 12hours and acetozolamide for elevated pco2 43 -Place Estrada, arterial Doppler flow restrictions 1500 cc -Cardiac echo ordered 1. Normal left ventricular cavity size. Moderately decreased left ventricular systolic function. Left ventricular ejection fraction is estimated at 40 %. Moderate global left ventricular hypokinesis. Abnormal diastolic function. 2. Normal right ventricular size and systolic function. 3. Severe pulmonary hypertension with pulmonary artery pressure estimated at 59 mmHg. 4. Mild mitral valve regurgitation. Hjim-hd-opowyopz tricuspid valve regurgitation. 5. Dilated inferior vena cava with decreased respiratory variation. 6. When compared echocardiogram dated 03/21/2020, PA pressure and right atrial pressure has increased. -Follow EKGs, follow troponins, watch for chest pain -Venous ultrasound bilateral extremities Hypoechoic, nonocclusive thrombus in the left distal popliteal and peroneal veins, eliquis does increased to 5mg BID -Anemia hgb down to 8.0, folate/b12/ferritin within normal limits, serum iron is low, hemmocult pending, no bloody or black stools, protonix 40mg BID with carafate and ferrous sulfate -cta no pulmonary embolism right knee xray shows chronic lateral dislocation of patella, since 09/2020 -Patient is on Eliquis 5mg BID for DVT prophylaxis -DNR/DNI plan for today katharine greenberg as he still has anasarca, monitor urine output Status: Acute (2) Diastolic CHF: Status: Acute (3) Pneumonia: Status: Acute (4) Lower extremity edema: Status: Acute (5) Coronary artery disease: Status: Acute Qualifiers: Coronary Disease-Associated Artery/Lesion type: [place] artery [place] vs. 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 transplanted heart: [place] heart Associated angina: without angina Atrial fibrillation I48.91 NSTEMI (non-ST elevated myocardial infarction) I21.4 Left leg DVT I82.402 Anemia D64.9
--- NOTE | 2020-10-18 13:48 | PC.SOCIAL ---
Pg 2 IMM Explained to pt's daughter Pg 2 IMM. No questions voiced. Provided pt a copy. Signed, dated, & timed a copy & placed in chart.
[2020-10-18] MEDS: atorvastatin 40 mg Tablet PO (21:10)
[2020-10-19] VITALS (22 sets, daily range): BP systolic 93–113; BP diastolic 51–68; PULSE 47–87; RESP 16–36; TEMP 36.4–37.2; O2SAT 93–100
[2020-10-19] MEDS: pantoprazole 40 mg SDV IVP ×2 (01:01→13:14)
[2020-10-19 05:44] LABS: Basophils % 0.2 %; Eosinophils # 0.1 10^3/uL (0.0-0.8); Eosinophils % 0.8 %; Hematocrit 25.3 % (42.0-52.0); Hemoglobin 7.8 g/dL (11.7-16.6); Lymphocytes # 0.7 10^3/uL (0.8-4.8); Lymphocytes % 5.1 %; Mean Corpuscular HGB Conc 30.8 g/dL (30.0-36.0); Mean Corpuscular Hemoglobin 29.8 pg (28.0-34.0); Mean Corpuscular Volume 96.6 fL (80-94); Mean Platelet Volume 10.1 fL (7.4-10.4); Monocytes # 1.4 10^3/uL (0.2-0.9); Monocytes % 10.6 %; Neutrophils # 10.78 10^3/uL (1.8-7.7); Neutrophils % 82.5 %; Nucleated Red Blood Cells % 0 %; Platelet Count 396 10^3/cmm (130-400); Red Blood Count 2.62 10^6/uL (4.1-5.3); Red Cell Distribution Width 15.4 % (12.1-15.1); White Blood Count 13.1 10^3/uL (4.0-10.0)
[2020-10-19 05:54] LABS: INR 1.82 (0.8-1.2)
[2020-10-19 06:13] LABS: Alanine Aminotransferase 13 U/L (0-41); Albumin Level 2.2 g/dL (3.5-5.2); Alkaline Phosphatase 117 IU/L (40-130); Anion Gap 7.3 (5-19); Aspartate Amino Transferase 19 U/L (0-40); Blood Urea Nitrogen 27 mg/dL (8-23); Calcium 7.9 mg/dL (8.5-10.5); Chloride 92 mmol/L (98-107); Creatinine Clr Calc Pharmacy 80.5459; Globulin 3.5 g/dL (1.3-4.6); Glucose 96 mg/dL (65-115); Magnesium 1.8 mg/dL (1.7-2.3); NT Pro B Type Natriuretic Pept 16602 pg/mL (0-450); Osmolality Calculated 301 mOsm/kg (285-295); Phosphorus 3.2 mg/dL (2.5-4.5); Potassium 3.3 mmol/L (3.5-5.1); Sodium 143 mmol/L (136-145); Total Bilirubin 0.6 mg/dL (0.15-1.2); Total Protein 5.7 g/dL (6.6-8.7)
[2020-10-19 06:21] LABS: Carbon Dioxide 47 mmol/L (22-29)
[2020-10-19 10:19] LABS: ABG PCO2 74.7 mmHg (35-45); Arterial Blood Gas Hematocrit 24.3 % (42-52); Base Excess ABG 19.1 mmol/L (-2.0-2.0); Blood Gas Allen Test Pos; Blood Gas Operator Identificat MONRO; Blood Gas Sample Site Radial, left; Blood Gas Sample Type Arterial; HCO3 ABG 46.3 mmol/L (22-26); Oxygen Device OXY MASK; PO2 ABG 84.1 mmHg (80.0-100.0)
[2020-10-19] MEDS: sucralfate 1 gm Tablet PO ×2 (10:28→18:26)
[2020-10-19] MEDS: azithromycin 250 mg Tablet PO (10:28)
[2020-10-19] MEDS: metOLazone 5 MG Tablet 10 MG PO (10:29)
[2020-10-19] MEDS: potassium chloride ER 20 mEq Tablet 40 MEQ PO (10:29)
[2020-10-19] MEDS: acetaZOLAMIDE 250 mg Tablet PO (10:29)
[2020-10-19] MEDS: aspirin 81 mg EC Tablet PO (10:29)
[2020-10-19] MEDS: amlodipine 5 mg Tablet PO (10:30)
[2020-10-19] MEDS: ferrous sulfate EC 325 mg Tablet PO (10:30)
[2020-10-19] MEDS: ascorbic acid 500 mg Tablet PO (10:30)
[2020-10-19] MEDS: cefTRIAXone 1,000 MG in sodium chloride 0.9% (plus) 50 ML 100 MG IV (10:31)
[2020-10-19] MEDS: acetaZOLAMIDE 250 mg Tablet 500 MG PO (10:39)
--- NOTE | 2020-10-19 11:40 | XR_ITS ---
WS: [id number] Exam: XR chest 1V portable [id number] Date/Time of Exam: 10/19/2020 12:00 PM Reason For Exam: pnA Comparison 10/15/2020. Consolidating infiltrate noted throughout the mid and lower right lung unchanged. Large right-sided p leural effusion showing some improvement since previous study. The heart is enlarged but unchanged in size. There is also infiltrate in the left lower lobe. Large hiatal hernia. An ICD superimposes the left chest. No pneumothorax. Monitoring leads superimpose the chest. The mediastinum and osseous thor ax are unremarkable. XR/XR chest 1V portable [id number] IMPRESSION: 1. Extensive infiltrate in the mid and lower right lung unchanged. There is als o infiltrate in the left retrocardiac region in the left lower lobe. 2. Prominent right-sided pleural effusion has improved since previous study. 3. Cardiac enlargement unchanged. Large hiatal hernia.
--- NOTE | 2020-10-19 12:18 | PM.CONSULT ---
Providers/Reason For Consult Consulting Physician/Specialty*: Dr. Torres/cardiothoracic surgery Reason for Consult*: DVT/Contraindication to anticoagulation Attending Physician: Hunter Constantino MD Primary Care Provider: ERICKA Engel History of Present Illness History of Present Illness Jose Farias is an 85 year old male was admitted to [facility] on October 15 after presenting with complaints of shortness of breath. He is status post right knee arthroplasty on September 18. Upon presentation, patient was hypoxic with bilateral lower extremity pitting edema along with evidence for CHF a potential pneumonia. He has chronic atrial fibrillation and is on Eliquis. He was admitted underwent aggressive diuresis with good effect. He was found to have bilateral pleural effusions right greater than left as well as bilateral central bronchial inflammation and edema with bibasilar airspace disease. Echocardiogram revealed ejection fraction of 40% along with severe pulmonary hypertension with a PA pressure up to 59 mmHg. Venous duplex study revealed hypoechoic nonocclusive thrombus of the left distal popliteal vein and peroneal veins. Chest CTA of October 16 was negative for pulmonary embolism. There were moderate to large right and smaller left pleural effusions with compressive atelectasis. Large esophageal hiatal hernia was also noted Today's x-ray continues to reveal substantial right pleural effusion with cardiomegaly. Review of Systems Const: Reports: fatigue; Denies: fever(s) Eyes: Denies: change in vision ENMT: Denies: odynophagia Card: Reports: palpitations and edema; Denies: chest pain Resp: Reports: dyspnea GI: Denies: abdominal pain or hematemesis Musc: Reports: extremity pain, joint pain and joint swelling Neuro: Denies: headache(s) or numbness in extremities Meds/Allergies Home Medications and Allergies Home Medications Medication Instructions Recorded Confirmed Last Taken Type multivitamin 1 tab PO DAILY@0800 05/07/19 10/15/20 10/14/20 History omega-3 fatty acids 1,000 mg 1,000 mg PO DAILY@0800 cap 05/07/19 10/15/20 10/14/20 History capsule Metamucil 1 tbsp PO DAILY@0800 03/06/20 10/15/20 10/14/20 History latanoprost 0.005 % eye drops 1 drp OPHTHALMIC (EYE) DAILY@0800 03/29/20 10/15/2021 History amlodipine 5 mg PO DAILY@0800 05/15/20 10/15/20 10/14/20 History ascorbic acid (vitamin C) 500 mg 500 mg PO DAILY@0800 07/10/20 10/15/20 10/14/20 History tablet potassium chloride 20 mEq 30 meq PO DIRECTED tab 07/10/20 10/15/20 09/23/20 History tablet,extended release(part/cryst) furosemide 40 mg tablet See Rx Instructions .ROUTE 08/22/20 10/15/20 10/15/20 Rx .COMPLEX #45 tab apixaban [Eliquis] 2.5 mg PO BID@08,199909/23/20 10/15/20 10/14/20 History acetaminophen 500 mg PO Q8H 10/15/20 10/15/20 10/14/20 History ferrous sulfate 325 mg PO DAILY@0800 10/15/20 10/15/20 10/14/20 History levofloxacin [Levaquin] 750 mg PO Q2D 10/15/20 10/15/20 10/13/20 History Allergies Allergy/AdvReac Type Severity Reaction Status Date / Time lisinopril Allergy Unknown swelling Verified 10/03/20 10:03 spironolactone Allergy Unknown abdominal Verified 10/03/20 10:03 pain Current Medications Current Medications Generic Name Dose Route Start Last Admin Trade Name Freq PRN Reason Stop Dose Admin Acetazolamide 500 mg 10/19/20 10:25 10/19/20 10:39 Acetazolamide 250 Mg Tablet PO 10/20/20 10:24 500 mg Q12H VITALY Administration Albuterol/Ipratropium 3 ml 10/16/20 10:53 10/17/20 08:45 Ipratropium-Albuterol 3 Ml Neb INHALATION 3 ml QID.RESPIRATORY PRN Administration Shortness of Breath Amlodipine Besylate 5 mg 10/16/20 08:00 10/19/20 10:30 Amlodipine 5 Mg Tablet PO 5 mg DAILY@0800 VITALY Administration Apixaban 5 mg 10/15/20 20:00 10/18/20 20:04 Apixaban 5 Mg Tablet PO 5 mg BID@0800,1999 VITALY Administration Ascorbic Acid 500 mg 10/16/20 08:00 10/19/20 10:30 Ascorbic Acid 500 Mg Tablet PO 500 mg DAILY@0800 VITALY Administration Aspirin 81 mg 10/17/20 09:00 10/19/20 10:29 Aspirin 81 Mg Ec Tablet PO 81 mg DAILY VITALY Administration Atorvastatin Calcium 40 mg 10/16/20 21:00 10/18/20 21:10 Atorvastatin 40 Mg Tablet PO 40 mg BEDTIME VITALY Administration Azithromycin 250 mg 10/17/20 11:00 10/19/20 10:28 Azithromycin 250 Mg Tablet PO 250 mg DAILY VITALY Administration Protocol Ferrous Sulfate 325 mg 10/16/20 08:00 10/19/20 10:30 Ferrous Sulfate Ec 325 Mg Tablet PO 325 mg DAILY@0800 VITALY Administration Ceftriaxone Sodium 1,000 mg/ 50 mls @ 100 mls/hr 10/16/20 10:00 10/19/20 11:07 Sodium Chloride IV Infused Q24H VITALY Infusion Protocol Latanoprost 1 drop 10/16/20 08:00 10/19/20 10:32 Latanoprost 0.005% Op Soln 2.5 Ml Btl EYE-BOTH Not Given DAILY@0800 [facility] Pantoprazole Sodium 40 mg 10/15/20 13:30 10/19/20 01:01 Pantoprazole 40 Mg Sdv IVP 40 mg Q12H VITALY Administration Potassium Chloride 40 meq 10/17/20 09:10 10/19/20 10:29 Potassium Chloride Er 20 Meq Tablet PO 40 meq DAILY VITALY Administration Sucralfate 1 gm 10/16/20 09:10 10/19/20 10:28 Sucralfate 1 Gm Tablet PO 1 gm BIDAC VITALY Administration PFSH Acute PFSH: Medical History Anemia Bradycardia by electrocardiography Chronic atrial fibrillation. 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 Family History Other Diabetes Social History Smoking and tobacco status: former smoker Alcohol intake: never Vitals/I&O/Wt Last Vital Signs Temp 98.0 F 10/19/20 11:28 Pulse 66 10/19/20 11:28 Resp 24 H 10/19/20 11:28 BP 101/64 10/19/20 11:28 Pulse Ox 99 10/19/20 11:28 10/18/20 10/19/20 10/19/20 22:59 06:59 14:59 Intake Total 440 / 844 410 / 410 Output Total 1750 / 2600 1050 / 3650 Balance -1310 / -1756 -1050 / -2806 410 / 410 Physical Exam Chest: CHEST: No Symmetrical chest wall rise Resp: COMMON NORMALS: negative for No use of accessory muscles EFFORT & INSPECTION: No symmetric chest movement, Yes labored, Yes paradoxical thoraco-abdominal movements and Yes prolonged expiratory phase AUSCULTATION: diminished lung sounds on the right and diffuse Cardio: COMMON NORMALS: S1 normal heart sound present RHYTHM: abnormal rhythm irregularly irregular HEART SOUNDS: S1 normal heart sound present Extremity: OTHER: Bilateral lower extremity edema Urinary Catheter Management^: Estrada: Cath Placed During This Visit: yes Reason for Continuing Indwelling Catheter: Acute Urinary Retention or Obstruction Urinary Catheter Date of Insertion: 10/15/20 Urinary Catheter Time of Insertion: 14:04 A&P Assessment and plan (1) Left leg DVT: While certainly the left leg DVT is concerning and it appears he does have a contraindication to anticoagulation with a drop in his hemoglobin; given his respiratory difficulties at this time, particular with a large right pleural effusion, I think we probably should delay on IVC filter placement. I believe it would be better to proceed with thoracentesis to allow for recovery of atelectatic lung and then reassess his respiratory status as to whether he can lie flat for IVC filter placement. At his current condition, I am afraid we would have to control his airway with intubation, then would have potential difficulty in extubation acutely. I have conferred with my colleague, Dr. Merrill, and he concurs with our plans to delay IVC filter placement at this time. Status: Acute Consult Attestations Medical Necessity Statement: Left lower extremity DVT with contraindication to anticoagulation Time Spent in Patient Care: 16 - 35 minutes Coding Level of Care Code Acute Ramp Service Agent for [facility] Diagnoses Left leg DVT I82.402
--- NOTE | 2020-10-19 12:19 | PM.PN ---
Subjective Subjective: Interval history: This morning patient was examined, overnight he did not use his BiPAP, his PCO2 is 74.7 this morning, compensated, he does follow commands, is on 4 L, but is a bit drowsy, he is alert to person, place, time, but tells me just feels tired this morning, a bit foggy, he did denies any chest pain, no shortness of breath, no lightheadedness, dizziness, physical therapy and nursing staff were hesitant about getting him up to a chair yesterday as he has a right patellar dislocation, he tells me that he feels weak I discussed patient's current care with him, clinically he is getting better from the pneumonia, he is getting better from the heart failure, he is diuresed over 10 L, however he does have a left lower extremity DVT for which his anticoagulation dose has been increased to Eliquis 5 mg twice daily, he does have A. fib and is on Eliquis chronically, but his hemoglobin has trended downwards now down to 7.8, he denies any bloody or black stools, but has not had a bowel movement, or waiting on a bowel movement for Hemoccult stools, for now I have discontinued his anticoagulation, understanding the risks of strokes and DVTs and PEs, currently the risks of bleeding outweigh the benefit, I presume that he has underlying slow GI bleed, he has no hemodynamic compromise, but continuing Eliquis would carry significant risk of hemorrhage and bleeding and significant morbidity and mortality in my opinion. He does agree with holding anticoagulation for now, but I am not exactly sure if he understands the complexity of the situation. I did briefly discuss with him an IVC filter placement as a potential intervention to prevent a pulmonary emboli for his left lower extremity DVT, but it will not prevent the left lower extremity DVT for worsening, nonetheless we will have to discuss with the specialist about his anticoagulation given his atrial fibrillation as he does have a stroke risk, he does voiced understanding, he does tell me that he understands, but again I do not feel that he has an understanding of the complexity of situation. I reached out to patient's daughter Juany, however she tells me that she is currently busy with the lunch hour carlson at the restaurant, will try again in about an hour or so Vitals/I&O/Wt Last Vital Signs Temp 98.0 F 10/19/20 11:28 Pulse 66 10/19/20 11:28 Resp 24 H 10/19/20 11:28 BP 101/64 10/19/20 11:28 Pulse Ox 99 10/19/20 11:28 10/18/20 10/19/20 10/19/20 22:59 06:59 14:59 Intake Total 440 / 844 410 / 410 Output Total 1750 / 2600 1050 / 3650 Balance -1310 / -1756 -1050 / -2806 410 / 410 Physical Exam Const: COMMON NORMALS: no acute distress, patient oriented x3 and alert GENERAL APPEARANCE: cooperative and ill appearing ORIENTATION/CONSCIOUSNESS: Yes awake, Yes oriented to person, Yes oriented to place and Yes oriented to time OTHER: a bit drowsy Resp: COMMON NORMALS: normal respiratory effort, No retractions, No use of accessory muscles and clear to auscultation bilaterally EFFORT & INSPECTION: Yes able to speak in complete sentences AUSCULTATION: clear to auscultation bilaterally Cardio: COMMON NORMALS: regular rate, regular rhythm, S1 normal heart sound present and S2 normal heart sound present RATE: regular rate RHYTHM: regular rhythm HEART SOUNDS: S1 normal heart sound present and S2 normal heart sound present GI: COMMON NORMALS: Normal to inspection, nondistended, normoactive bowel sounds present, Soft to palpation and non-tender PALPATION: Yes Soft to palpation Extremity: NARRATIVE EXTREMITY EXAM: 1+ edema b/l knee replacement right patellar dislocation Neuro: COMMON NORMALS: patient oriented x3, CN's II-XII intact bilaterally and moves all extremities SENSORIUM/ORIENTATION: Yes alert, Yes oriented to person, Yes oriented to place and Yes oriented to time Urinary Catheter Management^: Estrada: Cath Placed During This Visit: yes Reason for Continuing Indwelling Catheter: Acute Urinary Retention or Obstruction Urinary Catheter Date of Insertion: 10/15/20 Urinary Catheter Time of Insertion: 14:04 Data : 10/19/20 05:25 10/19/20 05:25 A&P Assessment and plan (1) Acute respiratory failure with hypoxia: -Acute respiratory failure with hypercarbia -Hypercarbia and some confusion this morning due to noncompliance with BiPAP, will place back on BiPAP this morning -Secondary to heart failure systolic and diastolic, and pneumonia -W[place] 13.1, [place] [id number] -Currently on 4L, chest x-ray showing bibasilar airspace disease, asymmetric pleural effusions, >10L diureses so far Plan: -Monitor respiratory status closely -Titrate oxygen as needed -BIPAP during the day, BiPAP schedule during the night, monitor mentation and pco2 -has Right pleural effusion, have consulted Dr. Flowers for thoracocentesis tomorrow AM, last dose of eliquis was 10/18/2020 at 8pm -Continue Rocephin and azithromycin -Sputum cultures, blood cultures, urine bacterial antigens -DuoNeb treatments as needed -Metolazone 10mg daily, Bumex 1 mg every 12hours and acetozolamide 500mg BID for elevated pco2 43 -Place Estrada, fluid restrictions 1500 cc -Cardiac echo ordered 1. Normal left ventricular cavity size. Moderately decreased left ventricular systolic function. Left ventricular ejection fraction is estimated at 40 %. Moderate global left ventricular hypokinesis. Abnormal diastolic function. 2. Normal right ventricular size and systolic function. 3. Severe pulmonary hypertension with pulmonary artery pressure estimated at 59 mmHg. 4. Mild mitral valve regurgitation. [id number] tricuspid valve regurgitation. 5. Dilated inferior vena cava with decreased respiratory variation. 6. When compared echocardiogram dated 03/21/2020, PA pressure and right atrial pressure has increased. -Follow EKGs, follow troponins, watch for chest pain -I have consulted cardiology for chf, chest pain, afib -atrial fibrillation, rate controlled, but given concerns for slow GI bleed and anemia, eliquis on hold, understands the risk and benefits of holding anticoagulation, agrees to proceed -Venous ultrasound bilateral extremities Hypoechoic, nonocclusive thrombus in the left distal popliteal and peroneal veins, eliquis does increased to 5mg BID but now hemoglobin 7.8, no hemodynamic compromise, no bloody or black stoools, hemmocult stool pending, eliquis now on hold, understands risk and benefit of holding anticogulation, agrees to proceed, Dr. 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 Morales, weight bearing as tolerated, when medically stable can proceed to surgical intevention -DVT prophylaxis contraindicated given concerns fro GI bleed -DNR/DNI plan for today continue BiPAP, monitor respiratory status, cardiology consulted, Dr. Torres consulted, hopefully can have thoracocentesis tomorrow morning, followed by surgery by Dr. Torres, will talk to daughter Status: Acute (2) Diastolic CHF: Status: Acute (3) Pneumonia: Status: Acute (4) Lower extremity edema: Status: Acute (5) Coronary artery disease: Status: Acute Qualifiers: Coronary Disease-Associated Artery/Lesion type: [place] artery [place] vs. transplanted heart: [place] heart Associated angina: without angina Qualified Code(s): I25.10 - Atherosclerotic heart disease of [place] coronary artery without angina pectoris (6) Atrial fibrillation: Status: Acute (7) NSTEMI (non-ST elevated myocardial infarction): Status: Acute (8) Left leg DVT: Status: Acute (9) Anemia: Status: Acute (10) GI bleed: Status: Acute (11) Acute respiratory failure with hypoxia and hypercarbia: Status: Acute Attestations Medical Necessity Statement*: Patient requires hospitalization for acute respiratory secondary to CHF, pulmonary edema, pneumonia,, requiring IVC filter placement, cardiology consult, right pleural effusion Coding Level of Care Code Acute Customer Solutions Architect for [facility] Diagnoses Acute respiratory failure with hypoxia J96.01 Diastolic CHF I50.30 Pneumonia J18.9 Lower extremity edema R60.0 Coronary artery disease I25.10 Coronary Disease-Associated Artery/Lesion type: [place] artery [place] vs. transplanted heart: [place] heart Associated angina: without angina Atrial fibrillation I48.91 NSTEMI (non-ST elevated myocardial infarction) I21.4 Left leg DVT I82.402 Anemia D64.9 GI bleed K92.2 Acute respiratory failure with hypoxia and hypercarbia J96.01; J96.02
[2020-10-19] MEDS: mineral oil ENEMA 133 mL PR (12:38)
[2020-10-19 14:26] LABS: Hematocrit 25.7 % (42.0-52.0); Hemoglobin 7.9 g/dL (11.7-16.6)
--- NOTE | 2020-10-19 14:39 | PC.NUTR ---
Nutrition assessment completed for LOS on 10/20/20. PO intakes averaging 33% since admission, recommend Ensure Plus TID. Recommend to encourage/assist at meals. See RD assessment for further details.
[2020-10-19 16:15] LABS: ABG PCO2 59.2 mmHg (35-45); ABG PH Result 7.51 (7.35-7.45); Arterial Blood Gas Hematocrit 22.3 % (42-52); Base Excess ABG 21.3 mmol/L (-2.0-2.0); Blood Gas Allen Test Pos; Blood Gas Operator Identificat AMH; Blood Gas Sample Site Radial, right; Blood Gas Sample Type Arterial; HCO3 ABG 46.7 mmol/L (22-26); Oxygen Device BIPAP; PO2 ABG 81.3 mmHg (80.0-100.0)
--- NOTE | 2020-10-19 18:25 | PM.CONSULT ---
Providers/Reason For Consult Consulting Physician/Specialty*: Dr. Saez, cardiology Reason for Consult*: Shortness of breath and chest pain Attending Physician: Hunter Constantino MD Primary Care Provider: ERICKA Engel History of Present Illness History of Present Illness Jose Farias is a 85 year old male with past medical history of a right total knee arthroplasty on 09/20/[address] 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 He is at [facility] since his knee replacement. Apparently his low oxygen levels led to arrival to the emergency room. + edema. No chest pain, palpitations, shortness of breath, dizziness. As per documentation, patient's pulse ox were found to be low, and that they were holding his Lasix for the last 5 days. He got 80 mg of Lasix IV in the EMS and was placed on 4 L. He has been diuresed and is -9L and got treated for PNA. He also has pleural effusion and left leg DVT. Given concerns for anemia, Dr. Torres was asked to evaluate him for IVC filter placment. I was asked to evaluate the patient for dyspnea of unclear etiology and intermittent chest pain and to determine need for cardiac cathetarization/stress test given CHF. I was unable to get much history from the patient. Patient is apparently hard of hearing and mumbling his replies. He appears uninterested in talking right now. As per nurse he has been on BiPaP through out the day and is due for thoracentesis tomorrow. Review of Systems General: Reports: ROS unobtainable due to medical condition and ROS unobtainable due to mental status Card: Denies: chest pain Resp: Reports: dyspnea Meds/Allergies Home Medications and Allergies Home Medications Medication Instructions Recorded Confirmed Last Taken Type multivitamin 1 tab PO DAILY@0800 05/07/19 10/15/20 10/14/20 History omega-3 fatty acids 1,000 mg 1,000 mg PO DAILY@0800 cap 05/07/19 10/15/20 10/14/20 History capsule Metamucil 1 tbsp PO DAILY@0800 03/06/20 10/15/20 10/14/20 History latanoprost 0.005 % eye drops 1 drp OPHTHALMIC (EYE) DAILY@0800 03/29/20 10/15/20 10/14/20 History amlodipine 5 mg PO DAILY@0805/15/20 10/15/20 10/14/20 History ascorbic acid (vitamin C) 500 mg 500 mg PO DAILY@0800 07/10/20 10/15/20 10/14/20 History tablet potassium chloride 20 mEq 30 meq PO DIRECTED tab 07/10/20 10/15/20 09/23/20 History tablet,extended release(part/cryst) furosemide 40 mg tablet See Rx Instructions .ROUTE 08/22/20 10/15/20 10/15/20 Rx .COMPLEX #45 tab apixaban [Eliquis] 2.5 mg PO BID@08,199909/23/20 10/15/20 10/14/20 History acetaminophen 500 mg PO Q8H 10/15/20 10/15/20 10/14/20 History ferrous sulfate 325 mg PO DAILY@79910/15/20 10/15/20 10/14/20 History levofloxacin [Levaquin] 750 mg PO Q2D 10/15/20 10/15/20 10/13/20 History Allergies Allergy/AdvReac Type Severity Reaction Status Date / Time lisinopril Allergy Unknown swelling Verified 10/03/20 10:03 spironolactone Allergy Unknown abdominal Verified 10/03/20 10:03 pain Current Medications Current Medications Generic Name Dose Route Start Last Admin Trade Name Freq PRN Reason Stop Dose Admin Acetazolamide 500 mg 10/19/20 10:25 10/19/20 10:39 Acetazolamide 250 Mg Tablet PO 10/20/20 10:24 500 mg Q12H VITALY Administration Albuterol/Ipratropium 3 ml 10/16/20 10:53 10/17/20 08:45 Ipratropium-Albuterol 3 Ml Neb INHALATION 3 ml QID.RESPIRATORY PRN Administration Shortness of Breath Amlodipine Besylate 5 mg 10/16/20 08:00 10/19/20 10:30 Amlodipine 5 Mg Tablet PO 5 mg DAILY@0800 VITALY Administration Ascorbic Acid 500 mg 10/16/20 08:00 10/19/20 10:30 Ascorbic Acid 500 Mg Tablet PO 500 mg DAILY@0800 VITALY Administration Atorvastatin Calcium 40 mg 10/16/20 21:00 10/18/20 21:10 Atorvastatin 40 Mg Tablet PO 40 mg BEDTIME VITALY Administration Azithromycin 250 mg 10/17/20 11:00 10/19/20 10:28 Azithromycin 250 Mg Tablet PO 250 mg DAILY VITALY Administration Protocol Ferrous Sulfate 325 mg 10/16/20 08:00 10/19/20 10:30 Ferrous Sulfate Ec 325 Mg Tablet PO 325 mg DAILY@0800 VITALY Administration Ceftriaxone Sodium 1,000 mg/ 50 mls @ 100 mls/hr 10/16/20 10:00 10/19/20 11:07 Sodium Chloride IV Infused Q24H VITALY Infusion Protocol Latanoprost 1 drop 10/16/20 08:00 10/19/20 10:32 Latanoprost 0.005% Op Soln 2.5 Ml Btl EYE-BOTH Not Given DAILY@0800 VITALY Pantoprazole Sodium 40 mg 10/15/20 13:30 10/19/20 13:14 Pantoprazole 40 Mg Sdv IVP 40 mg Q12H VITALY Administration Potassium Chloride 40 meq 10/17/20 09:10 10/19/20 10:29 Potassium Chloride Er 20 Meq Tablet PO 40 meq DAILY VITALY Administration Sucralfate 1 gm 10/16/20 09:10 10/19/20 10:28 Sucralfate 1 Gm Tablet PO 1 gm BIDAC VITALY Administration PFSH Acute PFSH: Medical History Anemia Bradycardia by electrocardiography Chronic atrial fibrillation. 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 Family History Other Diabetes Social History Smoking and tobacco status: former smoker Alcohol intake: never Vitals/I&O/Wt Last Vital Signs Temp 98.1 F 10/19/20 18:05 Pulse 76 10/19/20 18:05 Resp 26 H 10/19/20 18:05 BP 107/61 10/19/20 18:05 Pulse Ox 100 10/19/20 18:05 10/19/20 10/19/20 10/19/20 06:59 14:59 22:59 Intake Total 410 / 410 0 / 410 Output Total 1050 / 3650 525 / 525 Balance -1050 / -2806 410 / 410 -525 / -115 Physical Exam Narrative: EXAM NARRATIVE: GENERAL: Averagely built and averagely nourished in no acute distress HEENT: Extraocular movement intact. Pupils equal round reactive to light. No pallor or icterus. NECK: No mass, + JVD CARDIOVASCULAR SYSTEM: S1-S2 irregular. Grade 3 LLSB systolic murmur RESPIRATORY SYSTEM: Decreased breath sounds bilateral bases (R>L). No wheezes rhonchi or rales heard.No use of accessory muscles. ABDOMEN: Soft, nontender and nondistended. EXTREMITIES: Trace-1+ edema. No signs of chronic venous insufficiency. CRIMINAL LAWYER: Patient is sleepy but arousable Urinary Catheter Management^: Estrada: Cath Placed During This Visit: yes Reason for Continuing Indwelling Catheter: Chronic Indwelling Urinary Catheter on Admission Urinary Catheter Date of Insertion: 10/15/20 Urinary Catheter Time of Insertion: 14:04 Data Other Data: Attestation for Other Data: I personally reviewed and interpreted the following: Other data: TTE CONCLUSIONS 1. Normal left ventricular cavity size. Moderately decreased left ventricular systolic function. Left ventricular ejection fraction is estimated at 40 %. Moderate global left ventricular hypokinesis. Abnormal diastolic function. 2. Normal right ventricular size and systolic function. 3. Severe pulmonary hypertension with pulmonary artery pressure estimated at 59 mmHg. 4. Mild mitral valve regurgitation. Dyak-[id number] tricuspid valve regurgitation. 5. Dilated inferior vena cava with decreased respiratory variation. 6. When compared echocardiogram dated 03/21/2020, PA pressure and right atrial pressure has increased. CXR IMPRESSION: 1. Extensive infiltrate in the mid and lower right lung unchanged. There is also infiltrate in the left retrocardiac region in the left lower lobe. 2. Prominent right-sided pleural effusion has improved since previous study. 3. Cardiac enlargement unchanged. Large hiatal hernia. EKG A. fib with intermittent paced beats. RBBB, LAD, possible septal [place], age indeterminate A&P Assessment and plan (1) Acute respiratory failure with hypoxia: In setting of decompensated congestive heart failure, pleural effusion and pneumonia. -Requiring intermittent BiPAP support and oxygen via nasal cannula. -Management as per primary team. 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 -I do not think there is any indication or need for further cardiac work-up at this stage. -He is due for right-sided thoracentesis tomorrow hopefully that will help with his shortness of breath. -Once he is adequately diuresed and stable from respiratory standpoint, may consider outpatient stress testing at the discretion of patient's primary construction ironworker helper Dr. Alexis. -May continue with diuresis per discretion of primary care team. Status: Acute Qualifiers: Heart failure chronicity: acute on chronic Heart failure type: combined systolic and diastolic Qualified Code(s): I50.43 - Acute on chronic combined systolic (congestive) and diastolic (congestive) heart failure (3) Atrial fibrillation: Off Eliquis for thoracentesis Status: Acute Qualifiers: Atrial fibrillation type: unspecified chronic Qualified Code(s): I48.20 - Chronic atrial fibrillation, unspecified (4) NSTEMI (non-ST elevated myocardial infarction): Type 2 Status: Acute (5) Coronary artery disease: Mentioned in old chart. details unavailable. Status: Acute Qualifiers: Associated angina: without angina Coronary Disease-Associated Artery/Lesion type: [place] artery [place] vs. transplanted heart: [place] heart Qualified Code(s): I25.10 - Atherosclerotic heart disease of [place] coronary artery without angina pectoris Additional A&P Information Pleural effusion Mitral regurgitation and tricuspid valve regurgitation Pulmonary HTN Anemia s/p PPM Thank you for allowing me to participate in patient' scare. Please feel free to call with questions or concerns. Consult Attestations Time Spent in Patient Care: Greater than 35 minutes (>than 50% of time spent in counselling and/or direct pt care on unit). Coding Level of Care Code Acute Registered Medical Assistant for 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 Diagnoses Acute respiratory failure with hypoxia J96.01 Congestive heart failure I50.43 Heart failure chronicity: acute on chronic Heart failure type: combined systolic and diastolic Atrial fibrillation I48.20 Atrial fibrillation type: unspecified chronic NSTEMI (non-ST elevated myocardial infarction) I21.4 Coronary artery disease I25.10 Associated angina: without angina Coronary Disease-Associated Artery/Lesion type: [place] artery [place] vs. transplanted heart: [place] heart
[2020-10-19] MEDS: bumetanide 1 mg Tablet PO (18:26)
[2020-10-19] MEDS: sodium chloride 0.9% (100 ml) 100 ML 200 ML (18:27)
[2020-10-19] MEDS: chlorhexidine gluconate 4% Btl 118 mL 1 APPLIC TOPICAL (18:27)
[2020-10-19] MEDS: ipratropium-albuterol 3 mL Neb INHALATION (20:10)
[2020-10-19 22:24] LABS: Hematocrit 27.9 % (42.0-52.0); Hemoglobin 8.7 g/dL (11.7-16.6)
[2020-10-20] VITALS (30 sets, daily range): BP systolic 80–107; BP diastolic 40–60; PULSE 59–88; RESP 15–35; TEMP 36.7–38.1; O2SAT 93–100
[2020-10-20] MEDS: sodium chloride 0.9% (100 ml) 100 ML 150 ML (03:50)
[2020-10-20 04:28] LABS: Basophils % 0.2 %; Eosinophils % 0.1 %; Hematocrit 29.6 % (42.0-52.0); Hemoglobin 9.5 g/dL (11.7-16.6); Lymphocytes # 0.6 10^3/uL (0.8-4.8); Lymphocytes % 2.5 %; Mean Corpuscular HGB Conc 32.1 g/dL (30.0-36.0); Mean Corpuscular Hemoglobin 29.9 pg (28.0-34.0); Mean Corpuscular Volume 93.1 fL (80-94); Mean Platelet Volume 10.4 fL (7.4-10.4); Monocytes # 1.5 10^3/uL (0.2-0.9); Neutrophils # 19.77 10^3/uL (1.8-7.7); Neutrophils % 89.5 %; Nucleated Red Blood Cells % 0 %; Platelet Count 328 10^3/cmm (130-400); Red Blood Count 3.18 10^6/uL (4.1-5.3); Red Cell Distribution Width 15.9 % (12.1-15.1); White Blood Count 22.1 10^3/uL (4.0-10.0)
[2020-10-20 04:48] LABS: Alanine Aminotransferase 18 U/L (0-41); Alkaline Phosphatase 132 IU/L (40-130); Anion Gap 10.2 (5-19); Aspartate Amino Transferase 28 U/L (0-40); Blood Urea Nitrogen 27 mg/dL (8-23); Calcium 7.9 mg/dL (8.5-10.5); Chloride 91 mmol/L (98-107); Creatinine Clr Calc Pharmacy 80.5459; Globulin 3.5 g/dL (1.3-4.6); Glucose 103 mg/dL (65-115); Magnesium 1.8 mg/dL (1.7-2.3); Osmolality Calculated 293 mOsm/kg (285-295); Phosphorus 3.3 mg/dL (2.5-4.5); Potassium 3.2 mmol/L (3.5-5.1); Sodium 139 mmol/L (136-145); Total Bilirubin 0.8 mg/dL (0.15-1.2); Total Protein 5.5 g/dL (6.6-8.7)
[2020-10-20 04:50] LABS: Carbon Dioxide 41 mmol/L (22-29)
[2020-10-20 04:58] LABS: NT Pro B Type Natriuretic Pept 11111 pg/mL (0-450)
[2020-10-20 05:03] LABS: INR 1.66 (0.8-1.2)
[2020-10-20] MEDS: pantoprazole 40 mg SDV IVP ×2 (05:26→17:04)
--- NOTE | 2020-10-20 07:00 | XR_ITS ---
WS: [id number] Exam: XR chest 1V portable [id number] Date/Time of Exam: 10/20/2020 6:58 AM Reason For Exam: sob Comparison 10/19/2020. There is consolidating infiltrate throughout the right lung essentially unchanged. Large right-sided pleural effusion. There is also infiltrate in the left lower lobe and small left pleural effusion. Th e heart is enlarged but unchanged in size. No pneumothorax. The mediastinum is not widened. Regional bony structures are intact as visualized. An ICD superimposes the left chest. XR/XR chest 1V portable [id number] IMPRESSION: 1. Chest x-ray showing very little change since the previous exam 10/19/2020 at the 1210 hours.
[2020-10-20] MEDS: ipratropium-albuterol 3 mL Neb INHALATION ×3 (07:39→20:49)
[2020-10-20 07:59] LABS: Hematocrit 30.3 % (42.0-52.0); Hemoglobin 9.6 g/dL (11.7-16.6)
[2020-10-20 09:18] LABS: ABG PH Result 7.43 (7.35-7.45); Arterial Blood Gas Hematocrit 30.3 % (42-52); Base Excess ABG 19.2 mmol/L (-2.0-2.0); Blood Gas Allen Test Pos; Blood Gas Operator Identificat ED; Blood Gas Sample Site Radial, right; Blood Gas Sample Type Arterial; HCO3 ABG 46.4 mmol/L (22-26); Oxygen Device ROOM AIR; PO2 ABG 62.6 mmHg (80.0-100.0)
[2020-10-20 09:20] LABS: ABG PCO2 69.6 mmHg (35-45)
--- NOTE | 2020-10-20 10:46 | XR_ITS ---
WS: [id number] Exam: XR chest 1V portable [id number] Date/Time of Exam: 10/20/2020 10:48 AM Reason For Exam: RIGHT SIDE PLEURAL EFFUSION Comparison 10/20/2020 at 0707 hours. There has been significant reduction in right pleural effusion secondary to recent thoracentesis. No pneumothorax is seen. There are persistent infiltrates in the right lung and also left lower lobe. Th e heart remains enlarged. No other changes in the overall appearance the chest since the previous kana dy. XR/XR chest 1V portable [id number] IMPRESSION: 1. Significant reduction in right pleural effusion secondary to thoracentesis. No pneumothorax is seen. 2. Remaining aspects of the chest are unchanged since the latest exam.
[2020-10-20 11:21] LABS: Body Fluid Polynuclear #Cells 0.639; Body Fluid WBC 842 /uL; Monocytes # Body Fluid 0.203
[2020-10-20] MEDS: vancomycin 1,250 MG/250 ML PIGGYBACK 250 MG IV (11:25)
[2020-10-20 11:26] LABS: Color, Body Fluid AMBER
[2020-10-20 11:27] LABS: Apprearance, Body Fluid CLOUDY; PATH Referral YES
[2020-10-20 11:36] LABS: Hematocrit 0.1 % (42.0-52.0)
--- NOTE | 2020-10-20 11:39 | PC.SOCIAL ---
IMM Update Pg. 2 of IMM Updated. Copy provided to patient.
[2020-10-20 11:44] LABS: Albumin Body Fluid 1.4 g/dL
[2020-10-20 11:44] LABS: Lactate (Lactic Acid level) 1.5 mmol/L (0.5-2.2)
[2020-10-20 11:45] LABS: Creatinine Body Fluid 0.74 (0.7-1.2); LDH Pleural Fluid 1044 U/L; Total Protein Pleural Fluid 2.8 g/dL; Triglycerides, Pleural Fluid 20 mg/dL
--- NOTE | 2020-10-20 12:00 | US_ITS ---
WS: [id number] ULTRASOUND-GUIDED THORACENTESIS CLINICAL INFORMATION: right COMPARISON: None. PROCEDURE: Informed consent: The risks, benefits, and alternatives of the procedure were discussed with the penny ent. Verbal and written consent was obtained. Timeout: A timeout was performed to confirm the correct patient, procedure, and site. Site: Right Preparation: A suitable skin site was identified. The patient was prepped and draped in usual sterile fashion. Lidocaine 1% was used for local anesthesia. Catheter: 4 Malay One-Step catheter. Fluid Volume: 550 ml Color: Dark red-brown Discarded safely. Complications: None. Patient disposition: Discharged from the department in stable condition. / thoracentesis [id number] IMPRESSION: 1. Uncomplicated ultrasound-guided right thoracentesis. 2. Radiograph demonstrates improved right pleural effusion. No pneumothorax.
--- NOTE | 2020-10-20 12:43 | PC.OT ---
Occupational Therapy treatment held for procedure.
--- NOTE | 2020-10-20 13:17 | PC.CHAP ---
Pastoral Care Encounter/Spiritual Assessment Type of Contact [] Declined wild animal caretaker visit [] Patient/Family/Request visit [] Outpatient visit [] Follow-up visit [] Physician referral [] Code/Alert [] Routine visit [] Staff referral [] Actively dying [xx] Patient sleeping [] Family support [] [] Out of room [] Palliative care [] [] Receiving care in room [] Pre-surgical visit [] Trauma [xx] Long length of stay [] ICU visit [xx] Other: Patient has oxygen mask and is asleep. Relational/Emotional Strength [] Patient feels connected with others/family/visitors/staff [] Distress [] Loneliness/isolation [] Abandonment Spirituality of Patient [] Person of Coco [] Attends Holiness of their Coco [] Believes in Prayer [] Reads Bible or Jew materials [] There are Spiritual issues to be addressed Dress Shoe Inspector Interventions [] Prayer [] Active listening [] Non-anxious presence [] Spiritual/emotional support [] Crisis/trauma care [] Spiritual counseling [] Bereavement support [] Provided bereavement packet [] Provided Bible/devotional materials [] Provided toy/stuffed animal, coloring book to patient or family member [] Provided Communion [] Anointing/[address] [] Salvation [] Completed spiritual assessment [] Other: Impact on Illness or Injury [] Angry [] Fearful [] Anxious [] Often cries [] Exhaustion [] Unable to work [] Unable to attend advent [] Unable to walk/stand [] Unable to read [] Unable to drive [] Unable to eat/drink [] Unable to sleep [] Unable to be with family [] Patient intubated [] Other: Summary Dress Shoe Inspector attempted follow up visit but patient was wearing an oxygen mask (C-PAP?) and was asleep. Attempt another follow up visit later. Time spent with patient 1minute
[2020-10-20 13:20] LABS: Lactate Dehydrogenase 183 U/L (135-225)
--- NOTE | 2020-10-20 13:59 | P.PN_ITS ---
Subjective Subjective: Interval history: Yesterday nursing staff, and physical therapy try to get patient up out of bed, however he would have episodes of confusion, lethargic, will be quite tired, become short of breath Yesterday in the evening, patient had an aspiration event while taking his m edications, according to nursing staff Overnight patient had 2 febrile episodes T-max 100.4, he used the BiPAP part of the night, would but would take it off, this morning according to nursing staff he was a bit lethargic, confused, on 4 L oxygen mask I examined patient multiple times throughout the morning, early in the morning, patient was a 4L to OxiMax, he was alert to person, to place, not to time, he does follow commands to squeezing my fingers, he can nod his head, but I discussed the thoracocentesis with him and he did not seem to understand, he is hard of hearing, I do not believe he understood the complexity of the procedure I had a discussion with patient's daughter early this morning, I advised that currently patient has a right pleural effusion, concerning for possible parap neumonic effusion versus heart failure, versus empyema he, he is on track to metabolic therapy which I broden in today, he is also has had episodes of confusion overnight is confused this morning, has a heart failure exacerbation, we have diuresed him over 11 L but is still short of breath, our plans on IVC filter placement have been delayed given his respiratory status. Patient's daughter advised me that she saw him yesterday afternoon, and she thought he was deteriorating, he was increasingly confused. She tells me that her father did not want to live like this, and she is thinking about stopping all his care and making him comfortable. I had a discussion with patient about the thoraco centesis process, I advised that taking the fluid off of them will help his breathing, and also allow us to better discern if he truly if he has had infection or not recent heart failure related. Advised of the risks and benefits, risk including but not limited to infection, bleeding, pneumothorax, morbidity mortality of the procedure, she understood the thoracocentesis procedure, she voiced understanding, all questions answered she agreed to allow us to proceed with a thoracocentesis. She tells me that he also has a will that advises to not do aggressive interventions, including to stop antibiotics if his likelihood of meaningful recovery is unlikely. But for now she is okay with us continue medical interventions, she will come this afternoon, and I will meet with her, we will go over patient's paperwork discussed with her. I reexamined patient early this afternoon after thoracocentesis procedure, he is on the BiPAP, he does have episodes of delirium, his mentation waxes and waning, but he does not nod his head and understanding, is alert, awake, to person, to place, not to time, no evidence of respiratory distress, Vitals/I&O/Wt Last Vital Signs Temp 98.5 F 10/20/20 12:00 Pulse 67 10/20/20 13:28 Resp 16 10/20/20 13:24 BP 94/59 10/20/20 12:00 Pulse Ox 98 10/20/20 13:24 10/19/20 10/20/20 10/20/20 22:59 06:59 14:59 Intake Total 450 / 860 350 / 1210 100 / 100 Output Total 2024 1450 / 3475 Balance -1575 / -1165 -1100 / -2265 100 / 100 Physical Exam Const: EXAM LIMITATIONS: altered mental status GENERAL APPEARANCE: ill appearing and frail appearing ORIENTATION/CONSCIOUSNESS: Yes awake, Yes oriented to person, Yes oriented to place and Yes confused; not oriented to time Resp: COMMON NORMALS: normal respiratory effort; negative for No retractions and negative for No use of accessory muscles AUSCULTATION: crackles, rhonchi and diminished lung sounds on the right in the lower lung dunn Cardio: COMMON NORMALS: regular rate, S1 normal heart sound present and S2 normal heart sound present RATE: regular rate RHYTHM: abnormal rhythm HEART SOUNDS: S1 normal heart sound present and S2 normal heart sound present GI: COMMON NORMALS: Normal to inspection, nondistended, normoactive bowel sounds present, Soft to palpation and non-tender PALPATION: Yes Soft to palpation Extremity: COMMON NORMALS: no pedal edema Neuro: SENSORIUM/ORIENTATION: Yes oriented to person, Yes oriented to place and No oriented to time Urinary Catheter Management^: Estrada: Cath Placed During This Visit: yes Reason for Continuing Indwelling Catheter: Chronic Indwelling Urinary Catheter on Admission Urinary Catheter Date of Insertion: 10/15/20 Urinary Catheter Time of Insertion: 14:04 Data : 10/20/20 10:45 10/20/20 04:23 Micro: Microbiology 10/20/20 10:45 Gram Stain - Final Pleural Fluid 10/15/20 10:12 Blood Culture - Final Blood NO GROWTH AFTER 5 DAYS 10/15/20 10:05 Blood Culture - Final Blood NO GROWTH AFTER 5 DAYS A&P Assessment and plan (1) Acute respiratory failure with hypoxia: -Acute respiratory failure with hypoxia hypercarbia -Hypercarbia and confusion this morning due did not use the BiPAP throughout the night, will place back on BiPAP this morning -Status post thoracocentesis this morning, 550 cc of dark red blood fluid removed, post procedure no pneumothorax, Gram stain unremarkable for organisms, 842 WBCs, PH 8.0, 1 of 3 light criteria met, exudative, cultures pending -Possible parapneumonic effusion -Secondary to heart failure systolic and diastolic, and pneumonia and possible parapneumonic effusion and aspiration pneumonia -WBC 22.1, [place] [address], lactic acid within normal limits, pro-Sumeet, CRP pending -Currently on BiPAP, chest x-ray showing bibasilar airspace disease, right lung infiltrates,bilateral small pleural effusions - greater than 11L diurese so far Plan: -Monitor respiratory status closely -Titrate oxygen as needed -BIPAP during the day, BiPAP schedule during the night, monitor mentation and pco2 -Follow cultures of thoracocentesis -Repeat blood cultures, urine cultures, sputum cultures -Broaden antibiotic coverage to vancomycin, Primaxin, Flagyl -DuoNeb treatments as needed -Continue Bumex 1 mg every 12 hours -Add midodrine for blood pressure support -Place Estrada, fluid restrictions 1500 cc -Cardiac echo ordered Left ventricular ejection fraction is estimated at 40 %. Moderate global left ventricular hypokinesis. Abnormal diastolic function. Severe pulmonary hypertension with pulmonary artery pressure estimated at 59 mmHg. When compared echocardiogram dated 03/21/2020, PA pressure and right atrial pressure has increased. -Cardiology on consult -atrial fibrillation, rate controlled, but given concerns for slow GI bleed and anemia, eliquis on hold, understands the risk and benefits of holding anticoagulation, agrees to proceed -Venous ultrasound bilateral extremities Hypoechoic, nonocclusive thrombus in the left distal popliteal and peroneal veins, eliquis does increased to 5mg BID but now hemoglobin 7.8, no hemodynamic compromise, no bloody or black stoools, hemmocult stool pending, eliquis now on hold, understands risk and benefit of holding anticogulation, agrees to proceed, Dr. 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 Morales, weight bearing as tolerated, when medically stable can proceed to surgical intevention -DVT prophylaxis contraindicated given concerns for GI bleed -DNR/DNI plan for today continue BiPAP, monitor respiratory status, prior antibiotic ther apy, will discuss with daughter, obtain paperwork as there is a question about how aggressive of the management we should pursue Status: Acute (2) Diastolic CHF: Status: Acute (3) Pneumonia: Status: Acute (4) Lower extremity edema: Status: Acute (5) Coronary artery disease: Status: Acute Qualifiers: Coronary Disease-Associated Artery/Lesion type: [place] artery [place] vs. transplanted heart: [place] heart Associated angina: without angina Qualified Code(s): I25.10 - Atherosclerotic heart disease of [place] coronary artery without angina pectoris (6) Atrial fibrillation: Status: Acute Qualifiers: Atrial fibrillation type: unspecified chronic Qualified Code(s): I48.20 - Chronic atrial fibrillation, unspecified (7) NSTEMI (non-ST elevated myocardial infarction): Status: Acute (8) Left leg DVT: Status: Acute (9) Anemia: Status: Acute (10) GI bleed: Status: Acute (11) Acute respiratory failure with hypoxia and hypercarbia: Status: Acute (12) Pleural effusion, right: Status: Acute (13) Delirium: Status: Acute (14) Aspiration pneumonia: Status: Acute (15) Pulmonary hypertension: Status: Acute (16) Parapneumonic effusion: Status: Acute Attestations Medical Necessity Statement*: Patient requires hospitalization for acute respiratory failure, multifactorial, parapneumonic effusion, pneumonia, CHF, GI bleed, Coding Level of Care Code 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 transplanted heart: [place] heart Associated angina: without angina Atrial fibrillation I48.20 Atrial fibrillation type: unspecified chronic NSTEMI (non-ST elevated myocardial infarction) I21.4 Left leg DVT I82.402 Anemia D64.9 GI bleed K92.2 Acute respiratory failure with hypoxia and hypercarbia J96.01; J96.02 Pleural effusion, right J90 Delirium R41.0 Aspiration pneumonia J69.0 Pulmonary hypertension I27.20 Parapneumonic effusion J18.9; J91.8
[2020-10-20] MEDS: metroNIDAZOLE IV 500 MG/100 ML PREMIX 100 MG IV (14:13)
[2020-10-20 14:16] LABS: Hemoglobin 10.1 g/dL (11.7-16.6)
[2020-10-20 14:19] LABS: Hematocrit 32.8 % (42.0-52.0)
[2020-10-20] MEDS: chlorhexidine gluconate 4% Btl 118 mL 1 APPLIC TOPICAL ×2 (14:20→19:19)
[2020-10-20] MEDS: midodrine 5 mg TABLET 10 MG PO (16:08)
--- NOTE | 2020-10-20 16:13 | PC.NURSE ---
Nurse Notified, Will check vitals again in 15 minutes.
[2020-10-20] MEDS: lidocaine 1% 5 ML in potassium chloride premix 100 ML 25 ML IV (16:30)
[2020-10-20] MEDS: lactated ringers 500 ML 999 ML IV ×2 (17:01→19:42)
[2020-10-20 17:09] LABS: C Reactive Protein 106.6 mg/L (0.0-4.9)
[2020-10-20 17:15] LABS: Procalcitonin 0.17 ng/mL (0-0.5)
--- NOTE | 2020-10-20 17:47 | PM.PN ---
Subjective Subjective: Interval history: Patient had episodes of confusion lethargy yesterday. He had an aspiration episode with low-grade fever at night as well. Patient's daughter at bedside at the time of evaluation. He underwent right-sided thoracentesis today. Length of stay ~ -11 L; -2.2 L from yesterday Medications: Reviewed: Yes Vitals/I&O/Wt Last Vital Signs Temp 98.2 F 10/20/20 16:00 Pulse 62 10/20/20 16:00 Resp 22 H 10/20/20 16:00 BP 80/40 10/20/20 16:00 Pulse Ox 95 10/20/20 16:00 10/20/20 10/20/20 10/20/20 06:59 14:59 22:59 Intake Total 350 / 1210 450 / 450 Output Total 1450 / 3475 Balance -1100 / -2265 450 / 450 Physical Exam Narrative: EXAM NARRATIVE: GENERAL: Averagely built and averagely nourished in no acute distress HEENT: Extraocular movement intact. Pupils equal round reactive to light. No pallor or icterus. NECK: No mass, + JVD CARDIOVASCULAR SYSTEM: S1-S2 irregular. Grade 3 LLSB systolic murmur RESPIRATORY SYSTEM: Decreased breath sounds bilateral bases (R>L). No wheezes rhonchi or rales heard.No use of accessory muscles. ABDOMEN: Soft, nontender and nondistended. EXTREMITIES: Trace-1+ edema. No signs of chronic venous insufficiency. FREIGHT LOADER: Patient is sleepy but arousable Urinary Catheter Management^: Estrada: Cath Placed During This Visit: yes Reason for Continuing Indwelling Catheter: Chronic Indwelling Urinary Catheter on Admission Urinary Catheter Date of Insertion: 10/15/20 Urinary Catheter Time of Insertion: 14:04 Data : 10/20/20 14:05 10/20/20 04:23 Micro: Microbiology 10/20/20 17:08 Blood Culture - Preliminary Blood SPECIMEN COLLECTED 10/20/20 14:23 Occult Blood (FIT) - Final Stool 10/20/20 10:45 Gram Stain - Final Pleural Fluid 10/15/20 10:12 Blood Culture - Final Blood NO GROWTH AFTER 5 DAYS 10/15/20 10:05 Blood Culture - Final Blood NO GROWTH AFTER 5 DAYS A&P Assessment and plan (1) Acute respiratory failure with hypoxia: ABG this morning with pH of 7.43, PCO2 69.6, PO2 62.6 on room air. -in setting of decompensated congestive heart failure, pleural effusion and pneumonia. -Requiring intermittent BiPAP support and oxygen via nasal cannula. -Management as per primary team. 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 -I do not think there is any indication or need for further cardiac work-up at this stage. -He is due for right-sided thoracentesis tomorrow hopefully that will help with his shortness of breath. -Once he is adequately diuresed and stable from respiratory standpoint, may consider outpatient stress testing at the discretion of patient's primary account adjuster Dr. Alexis. -May continue with diuresis per discretion of primary care team. Status: Acute Qualifiers: Heart failure type: combined systolic and diastolic Heart failure chronicity: acute on chronic Qualified Code(s): I50.43 - Acute on chronic combined systolic (congestive) and diastolic (congestive) heart failure (3) Atrial fibrillation: Off Eliquis for thoracentesis and concerns Status: Acute Qualifiers: Atrial fibrillation type: unspecified chronic Qualified Code(s): I48.20 - Chronic atrial fibrillation, unspecified (4) NSTEMI (non-ST elevated myocardial infarction): Type 2 Status: Acute (5) Coronary artery disease: Mentioned in old chart. details unavailable. Status: Acute Qualifiers: Coronary Disease-Associated Artery/Lesion type: [place] artery [place] vs. transplanted heart: [place] heart Associated angina: without angina Qualified Code(s): I25.10 - Atherosclerotic heart disease of [place] coronary artery without angina pectoris Additional A&P Information Pleural effusion: S/p thoracentesis with removal of approximately 550 mL of exudative pleural fluid Mitral regurgitation and tricuspid valve regurgitation Hypokalemia Pulmonary HTN Anemia s/p PPM Thank you for allowing me to participate in patient' scare. Please feel free to call with questions or concerns. Attestations Medical Necessity Statement*: As per primary team Time Spent in Patient Care: 16 - 35 minutes (>than 50% of time spent in counselling and/or direct pt care on unit). Coding Level of Care Code Acute [employer] Entry for 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 Diagnoses Acute respiratory failure with hypoxia J96.01 Congestive heart failure I50.43 Heart failure type: combined systolic and diastolic Heart failure chronicity: acute on chronic Atrial fibrillation I48.20 Atrial fibrillation type: unspecified chronic NSTEMI (non-ST elevated myocardial infarction) I21.4 Coronary artery disease I25.10 Coronary Disease-Associated Artery/Lesion type: [place] artery [place] vs. transplanted heart: [place] heart Associated angina: without angina
[2020-10-20 17:52] LABS: Lactate (Lactic Acid level) 1.5 mmol/L (0.5-2.2)
[2020-10-20] MEDS: sucralfate 1 gm Tablet PO (19:19)
[2020-10-20] MEDS: azithromycin 500 MG in sodium chloride 0.9% 250 ML 250 MG IV (20:40)
[2020-10-21] VITALS (21 sets, daily range): BP systolic 96–109; BP diastolic 55–67; PULSE 55–78; RESP 13–27; TEMP 36.4–36.9; O2SAT 93–100
[2020-10-21] MEDS: vancomycin 1,250 MG/250 ML PIGGYBACK 250 MG IV ×3 (00:02→23:58)
[2020-10-21] MEDS: pantoprazole 40 mg SDV IVP ×2 (03:38→14:00)
[2020-10-21 05:07] LABS: ABG PCO2 55.9 mmHg (35-45); ABG PH Result 7.49 (7.35-7.45); Arterial Blood Gas Hematocrit 28.4 % (42-52); Base Excess ABG 16.6 mmol/L (-2.0-2.0); Blood Gas Allen Test Pos; Blood Gas Operator Identificat JB; Blood Gas Sample Site Brachial, right; Blood Gas Sample Type Arterial; HCO3 ABG 42.1 mmol/L (22-26); Oxygen Device BIPAP
--- NOTE | 2020-10-21 07:00 | XRR_ITS ---
PROCEDURE INFORMATION: Exam: XR Chest Exam date and time: 10/21/2020 7:00 AM Age: 85 years old Clinical indication: Shortness of breath; Additional info: SOB TECHNIQUE: Imaging protocol: XR of the chest. Views: 1 view. COMPARISON: CR XR chest 1V portable [id number] 10/20/2020 10:56 AM FINDINGS: Tubes, catheters and devices: A permanent pacemaker appears intact. Lungs: See Heart/Mediastinum finding. Pleural spaces: There is a small right pleural effusion and is unchanged. No pneumothorax. Heart/Mediastinum: The cardiac silhouette is enlarged but unchanged. There is bibasilar atelectasis which has not significantly changed allowing for differences in positioning. Bones/joints: Unremarkable. XR/XR chest 1V portable [id number] IMPRESSION: 1. Bibasilar atelectasis and effusions greater on the right side. 2. No significant change.
[2020-10-21] MEDS: ipratropium-albuterol 3 mL Neb INHALATION (07:36)
[2020-10-21 08:56] LABS: Basophils % 0.2 %; Eosinophils # 0.1 10^3/uL (0.0-0.8); Eosinophils % 0.5 %; Hematocrit 31.2 % (42.0-52.0); Hemoglobin 9.8 g/dL (11.7-16.6); Lymphocytes # 0.9 10^3/uL (0.8-4.8); Lymphocytes % 5.1 %; Mean Corpuscular HGB Conc 31.4 g/dL (30.0-36.0); Mean Corpuscular Hemoglobin 29.5 pg (28.0-34.0); Mean Platelet Volume 10.6 fL (7.4-10.4); Monocytes # 1.1 10^3/uL (0.2-0.9); Neutrophils # 15.56 10^3/uL (1.8-7.7); Neutrophils % 87.5 %; Nucleated Red Blood Cells % 0 %; Platelet Count 319 10^3/cmm (130-400); Red Blood Count 3.32 10^6/uL (4.1-5.3); Red Cell Distribution Width 15.9 % (12.1-15.1); White Blood Count 17.8 10^3/uL (4.0-10.0)
[2020-10-21 08:59] LABS: INR 1.63 (0.8-1.2)
[2020-10-21 09:25] LABS: NT Pro B Type Natriuretic Pept 8560 pg/mL (0-450); Procalcitonin 0.16 ng/mL (0-0.5)
[2020-10-21 09:36] LABS: Alanine Aminotransferase 14 U/L (0-41); Alkaline Phosphatase 123 IU/L (40-130); Aspartate Amino Transferase 26 U/L (0-40); Blood Urea Nitrogen 31 mg/dL (8-23); C Reactive Protein 120.4 mg/L (0.0-4.9); Calcium 7.8 mg/dL (8.5-10.5); Carbon Dioxide 37 mmol/L (22-29); Chloride 94 mmol/L (98-107); Creatinine Clr Calc Pharmacy 80.5459; Globulin 3.6 g/dL (1.3-4.6); Glucose 65 mg/dL (65-115); Osmolality Calculated 299 mOsm/kg (285-295); Phosphorus 3.6 mg/dL (2.5-4.5); Sodium 142 mmol/L (136-145); Total Bilirubin 0.8 mg/dL (0.15-1.2); Total Protein 5.6 g/dL (6.6-8.7)
[2020-10-21 09:48] LABS: Anion Gap 14.3 (5-19); Potassium 3.3 mmol/L (3.5-5.1)
[2020-10-21] MEDS: chlorhexidine gluconate 4% Btl 118 mL 1 APPLIC TOPICAL ×2 (09:50→17:31)
--- NOTE | 2020-10-21 09:51 | PC.OT ---
Patient unable to participate in feeding which is his primary goals for occupational therapy, based on clinical decision he is discharging from occupational therapy at this time, please send new referral if there is a significant status change.
[2020-10-21] MEDS: lactated ringers 1,000 ML 999 ML IV (10:58)
--- NOTE | 2020-10-21 12:12 | PM.PN ---
Subjective Subjective: Interval history: Patient was seen this morning, currently is on BiPAP, he is alert to person, to place, not to time, he knows his birthday, he is much more alert and awake, tells me that his breathing is significantly better, follows commands, afebrile overnight, borderline low blood pressures, on 3 L Vitals/I&O/Wt Last Vital Signs Temp 98.1 F 10/21/20 10:00 Pulse 59 L 10/21/20 10:32 Resp 18 10/21/20 10:32 BP 97/59 10/21/20 10:00 Pulse Ox 98 10/21/20 10:32 10/20/20 10/21/20 10/21/20 22:59 06:59 14:59 Intake Total 1554 450 / 2455 Output Total 1100 / 1100 Balance 1554 -650 / 1355 Physical Exam Const: COMMON NORMALS: no acute distress ORIENTATION/CONSCIOUSNESS: Yes awake, Yes oriented to person and Yes oriented to place; not oriented to time Resp: COMMON NORMALS: normal respiratory effort, No retractions, No use of accessory muscles and clear to auscultation bilaterally AUSCULTATION: clear to auscultation bilaterally Cardio: COMMON NORMALS: regular rate, regular rhythm, S1 normal heart sound present and S2 normal heart sound present RATE: regular rate RHYTHM: regular rhythm HEART SOUNDS: S1 normal heart sound present and S2 normal heart sound present GI: COMMON NORMALS: Normal to inspection, nondistended, normoactive bowel sounds present, Soft to palpation and non-tender PALPATION: Yes Soft to palpation Extremity: COMMON NORMALS: no pedal edema Neuro: SENSORIUM/ORIENTATION: Yes oriented to person, Yes oriented to place and No oriented to time Urinary Catheter Management^: Estrada: Cath Placed During This Visit: yes Reason for Continuing Indwelling Catheter: Other Urinary Catheter Date of Insertion: 10/15/20 Urinary Catheter Time of Insertion: 14:04 Data : 10/21/20 08:34 10/21/20 08:34 Micro: Microbiology 10/20/20 16:38 MRSA Culture - Final Nose 10/20/20 19:03 Blood Culture - Preliminary Blood SPECIMEN COLLECTED 10/20/20 17:08 Blood Culture - Preliminary Blood SPECIMEN COLLECTED 10/20/20 14:23 Occult Blood (FIT) - Final Stool 10/20/20 10:45 Gram Stain - Final Pleural Fluid 10/15/20 10:12 Blood Culture - Final Blood NO GROWTH AFTER 5 DAYS 10/15/20 10:05 Blood Culture - Final Blood NO GROWTH AFTER 5 DAYS A&P Assessment and plan (1) Acute respiratory failure with hypoxia: -Acute respiratory failure with hypoxia hypercarbia, with sepsis secondary to pneumonia, parapneumonic effusion, aspiration, delirium -Initially acute respiratory failure secondary to CHF exacerbation and pneumonia -Much more alert and awake this morning, use BiPAP through the night, can transition to nasal cannula -Status post thoracocentesis this morning, 550 cc of dark red blood fluid removed, post procedure no pneumothorax, Gram stain unremarkable for organisms, 842 WBCs, PH 8.0, 1 of 3 light criteria met, exudative, cultures pending -Possible parapneumonic effusion -Secondary to heart failure systolic and diastolic, and pneumonia and possible parapneumonic effusion and aspiration pneumonia -WBC 17.8, lactic acid within normal limits, pro-Sumeet within normal limits, CRP 120 -Currently on BiPAP, chest x-ray bibasilar atelectasis and effusions greater on right - greater than 9L diurese so far Plan: -Monitor respiratory status closely -Titrate oxygen as needed -BIPAP during the day, BiPAP schedule during the night, monitor mentation and pco2 -Follow cultures of thoracocentesis -Repeat blood cultures, urine cultures, sputum cultures -On broaden antibiotic coverage to vancomycin, Primaxin, Flagyl -DuoNeb treatments as needed - -9 L, hold Bumex -Bolus normal saline as needed to maintain map around 65 -Add midodrine for blood pressure support -Place Estrada, fluid restrictions 1500 cc -Cardiac echo ordered Left ventricular ejection fraction is estimated at 40 %. Moderate global left ventricular hypokinesis. Abnormal diastolic function. Severe pulmonary hypertension with pulmonary artery pressure estimated at 59 mmHg. When compared echocardiogram dated 03/21/2020, PA pressure and right atrial pressure has increased. -Cardiology on consult -atrial fibrillation, rate controlled, but given concerns for slow GI bleed and anemia, eliquis on hold, understands the risk and benefits of holding anticoagulation, agrees to proceed -Venous ultrasound bilateral extremities Hypoechoic, nonocclusive thrombus in the left distal popliteal and peroneal veins, eliquis does increased to 5mg BID but now hemoglobin 7.8, no hemodynamic compromise, no bloody or black stoools, hemmocult stool pending, eliquis now on hold, understands risk and benefit of holding anticogulation, agrees to proceed, Dr. 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 Morales, weight bearing as tolerated, when medically stable can proceed to surgical intevention -DVT prophylaxis contraindicated given concerns for GI bleed -Proceed to dysphagia diet, bedside dysphagia screen, speech therapy eval -Status is stable, prognosis is guarded -DNR/DNI -Goals of care: - his daughter at bedside Juany is patient's second healthcare power of motorcycle service technician, the first is his who is . He does have 2 brothers but they are out in [place] and they are the third and fourth decision-makers. -I discussed the case in detail with Juany -She does not want aggressive interventions, she does not want her father to go down to ICU, she does not want aggressive medications, aggressive interventions -Above all she wants him to be uncomfortable -I advised for now that we can try fluid boluses continue broad-spectrum antibiotic therapy, and continue BiPAP, to see if he could improve for the next few hours -However if his sepsis worsens, he becomes more hypotensive more delirious, more hypoxic that we can pursue full comfort care -For now we can certainly do morphine and Ativan if he is in pain or anxious -Review of patient's healthcare power of motorcycle service technician paperwork shows -That he explicitly says that if I am persistently unconscious or there is no reasonable expectation of my recovery from a seriously incapacitating or terminal illness or condition, I direct that all of the life prolonging procedures which I have initiated below to be withheld or withdrawn, which include IV hydration, IV nutrition, surgery, CPR, antibiotics, dialysis, CPR, mechanical ventilation, chemotherapy, radiation therapy, and life prolonging medical or surgical procedures -Thus what I can interpret from this is is that if we feel that he does not have a reasonable chance of recovery from his sepsis, parapneumonic effusion, pneumonia, heart failure that we should stop all these interventions -So for now and agreement with the daughter I will continue the medical interventions until such time that we feel that he does not have a chance of reasonable recovery, such as he goes into septic shock, acute respiratory failure, or is suffering then we can certainly proceed comfort care -Daughter agrees, advised the risk and benefits, she voiced understanding to all questions answered, agrees to proceed with plan plan for today continue BiPAP, monitor respiratory status, continue antibiotic therapy, sepsis fluid boluses as needed, speech therapy eval, proceed with a diet Status: Acute (2) Diastolic CHF: Status: Acute (3) Pneumonia: Status: Acute (4) Lower extremity edema: Status: Acute (5) Coronary artery disease: Status: Acute Qualifiers: Coronary Disease-Associated Artery/Lesion type: [place] artery [place] vs. transplanted heart: [place] heart Associated angina: without angina Qualified Code(s): I25.10 - Atherosclerotic heart disease of [place] coronary artery without angina pectoris (6) Atrial fibrillation: Status: Acute Qualifiers: Atrial fibrillation type: unspecified chronic Qualified Code(s): I48.20 - Chronic atrial fibrillation, unspecified (7) NSTEMI (non-ST elevated myocardial infarction): Status: Acute (8) Left leg DVT: Status: Acute (9) Anemia: Status: Acute (10) GI bleed: Status: Acute (11) Acute respiratory failure with hypoxia and hypercarbia: Status: Acute (12) Pleural effusion, right: Status: Acute (13) Delirium: Status: Acute (14) Aspiration pneumonia: Status: Acute (15) Pulmonary hypertension: Status: Acute (16) Parapneumonic effusion: Status: Acute (17) Sepsis: Status: Acute Attestations Medical Necessity Statement*: Patient requires hospitalization for acute respiratory failure, pneumonia, CHF, parapneumonic effusion, GI bleed, sepsis Coding Level of Care Code Acute Pull Through [employer]er for 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 Diagnoses Acute respiratory failure with hypoxia J96.01 Diastolic CHF I50.30 Pneumonia J18.9 Lower extremity edema R60.0 Coronary artery disease I25.10 Coronary Disease-Associated Artery/Lesion type: [place] artery [place] vs. transplanted heart: [place] heart Associated angina: without angina Atrial fibrillation I48.20 Atrial fibrillation type: unspecified chronic NSTEMI (non-ST elevated myocardial infarction) I21.4 Left leg DVT I82.402 Anemia D64.9 GI bleed K92.2 Acute respiratory failure with hypoxia and hypercarbia J96.01; J96.02 Pleural effusion, right J90 Delirium R41.0 Aspiration pneumonia J69.0 Pulmonary hypertension I27.20 Parapneumonic effusion J18.9; J91.8 Sepsis A41.9
--- NOTE | 2020-10-21 14:10 | PM.PN ---
Subjective Subjective: Interval history: Cardiology coverage This is an 85-year-old white male, is admitted to the hospital with a hypoxic respiratory failure. He is known to have chronic atrial fibrillation, LV dysfunction and heart failure, pulmonary hypertension, mitral dilatation, DVT, status post ablation for venous insufficiency, chronic venous stasis and venous ulcers. He was found to have features of decompensated heart failure with pneumonia and pleural effusion. Had a thoracentesis yesterday. He is undergoing antibiotic treatment and IV diuretics. He seems to be improving. According the patient, is feeling much better. Denies any chest pain or chest tightness. He also developed anemia following anticoagulant therapy. He had to be transfused with 2 units of blood. Currently the hemoglobin is stable. Medications: Reviewed: Yes Medication Review Details: Current Medications Acetaminophen (Acetaminophen 325 Mg Tablet) 650 mg PO Q6H PRN PRN Reason: Mild/Mod Pain Or Temp >/= 101 Albuterol/Ipratropium (Ipratropium-Albuterol 3 Ml Neb) 3 ml INHALATION QID.RESPIRATORY PRN PRN Reason: Shortness of Breath Last Admin: 10/21/20 07:36 Dose: 3 ml Documented by: Ascorbic Acid (Ascorbic Acid 500 Mg Tablet) 500 mg PO DAILY@0800 [facility] [place] Last Admin: 10/21/20 08:37 Dose: Not Given Documented by: Atorvastatin Calcium (Atorvastatin 40 Mg Tablet) 40 mg PO BEDTIME [facility] [place] [place] Last Admin: 10/20/20 20:58 Dose: Not Given Documented by: Bumetanide (Bumetanide 0.25 Mg/Ml Sdv 4 Ml) 1 mg IV Q12H [facility] [place] [place] Last Admin: 10/20/20 16:24 Dose: Not Given Documented by: Chlorhexidine Gluconate (Chlorhexidine Gluconate 4% Btl 118 Ml) 1 applic TOPICAL BID [facility] [place] [place] Last Admin: 10/21/20 09:50 Dose: 1 applic Documented by: Ferrous Sulfate (Ferrous Sulfate Ec 325 Mg Tablet) 325 mg PO DAILY@0800 [facility] [place] [place] Last Admin: 10/21/20 08:37 Dose: Not Given Documented by: Imipenem/Cilastatin Sodium 500 (mg/ Sodium Chloride) 100 mls @ 200 mls/hr IV Q6H VITALY; Protocol Last Admin: 10/21/20 13:41 Dose: 200 mls/hr Documented by: Vancomycin/PEG/NADA/Lysine/Water (Vancocin) 1,250 mg in 250 mls @ 250 mls/hr IV Q12H [facility] [place] [place] Last Infusion: 10/21/20 13:12 Dose: Infused Documented by: Azithromycin 500 mg/ Sodium (Chloride) 250 mls @ 250 mls/hr IV Q24H [facility] [place] [place]; Protocol Last Infusion: 10/20/20 21:48 Dose: Infused Documented by: Sodium Chloride (Sodium Chloride 0.9%) 500 mls @ 999 mls/hr IV .Q31M PRN PRN Reason: FOR MAP<65 Latanoprost (Latanoprost 0.005% Op Soln 2.5 Ml Btl) 1 drop EYE-BOTH DAILY@0800 [facility] [place] [place] Last Admin: 10/21/20 08:37 Dose: Not Given Documented by: Lorazepam (Lorazepam 2 Mg/Ml Inj 1 Ml) 1 mg IVP Q8H PRN PRN Reason: ANXIETY Midodrine (Midodrine 5 Mg Tablet) 10 mg PO Q6H [facility] [place] Last Admin: 10/21/20 10:02 Dose: Not Given Documented by: Morphine Sulfate (Morphine 4 Mg/Ml Sdv 1 Ml) 1 mg IVP Q2H PRN PRN Reason: SEVERE PAIN Ondansetron HCl (Ondansetron 2 Mg/Ml Sdv 2 Ml) 4 mg IVP Q8H PRN PRN Reason: vomiting, or N/V if npo Pantoprazole Sodium (Pantoprazole 40 Mg Sdv) 40 mg IVP Q12H [facility] [place] Last Admin: 10/21/20 14:00 Dose: 40 mg Documented by: Potassium Chloride (Potassium Chloride Er 20 Meq Tablet) 40 meq PO DAILY [facility] [place] Last Admin: 10/21/20 09:49 Dose: Not Given Documented by: Sucralfate (Sucralfate 1 Gm Tablet) 1 gm PO BIDAC [facility] [place] [place] Last Admin: 10/21/20 08:37 Dose: Not Given Documented by: Vitals/I&O/Wt Last Vital Signs Temp 98.0 F 10/21/20 12:00 Pulse 73 10/21/20 12:50 Resp 16 10/21/20 12:00 BP 100/57 10/21/20 12:00 Pulse Ox 94 10/21/20 12:50 10/20/20 10/21/20 10/21/20 22:59 06:59 14:59 Intake Total 1555 / 2005 450 / 2455 1250.000 / 1250.000 Output Total 1100 / 1100 Balance 1552004 -650 / 1355 1250.000 / 1250.000 Physical Exam Narrative: EXAM NARRATIVE: GENERAL: The patient is alert and oriented times three. Not in any acute distress. Patient is hard of hearing. HEENT: Minimal pallor, icterus or lymphadenopathy.Oral cavity: There are no mucous membrane lesions. NECK: Trachea appears to be central. No masses noted. No JVD or thyromegaly appreciated. RESPIRATORY: Chest is symmetrical. No intercostals muscle retraction or any accessory muscle activation. There is no chest wall tenderness. Breath sounds are heard bilaterally. No rales or rhonchi heard. No evidence of any consolidation. BREASTS: Deferred. HEART: The heart sounds are variable. No S3 or S4. Systolic murmur grade 3/6 the mitral area. No diastolic murmurs.. No pericardial rub ABDOMEN: No vessel pulsations or distention. No tenderness. No organomegaly appreciated. Bowel sounds are normally heard. : Deferred. RECTAL: Deferred. LYMPHATIC: No lymphadenopathy noted in the neck or groin. EXTREMITIES: 1+ edema both lower extremities. Features of chronic venous stasis. MUSCULOSKELETAL: No acute joint deformities or swelling SKIN: There are no significant rashes or ecchymosis NEUROPSYCHIATRIC: The patient is alert and oriented x3. Appears to be in a good mood. No tremors or rigidity noted. Urinary Catheter Management^: Estrada: Cath Placed During This Visit: yes Reason for Continuing Indwelling Catheter: Other Urinary Catheter Date of Insertion: 10/15/20 Urinary Catheter Time of Insertion: 14:04 Data : 10/22/20 05:42 10/22/20 05:42 Micro: Microbiology 10/20/20 10:45 Gram Stain - Final Pleural Fluid Body Fluid Culture - Preliminary 10/20/20 16:38 MRSA Culture - Final Nose 10/20/20 19:03 Blood Culture - Preliminary Blood SPECIMEN COLLECTED 10/20/20 17:08 Blood Culture - Preliminary Blood SPECIMEN COLLECTED 10/20/20 14:23 Occult Blood (FIT) - Final Stool 10/15/20 10:12 Blood Culture - Final Blood NO GROWTH AFTER 5 DAYS 10/15/20 10:05 Blood Culture - Final Blood NO GROWTH AFTER 5 DAYS A&P Assessment and plan (1) Acute respiratory failure with hypoxia and hypercarbia: Patient has significant clinical improvement. May continue on the current treatment measures. Currently he is on oxygen by nasal cannula. Status: Acute (2) Chronic atrial fibrillation: The heart rate seems to be under control. He has frequent PVCs on the monitor. Blood pressure is running low. Currently may continue on the current medications. I may add magnesium to the current medications. Status: Acute (3) Acute on chronic systolic heart failure: Carefully treated with IV diuretics. Status: Acute (4) Aspiration pneumonia: Antibiotics treatment as per the primary. Status: Acute Qualifiers: Aspiration pneumonia type: unspecified Laterality: left Lung location: unspecified part of lung Qualified Code(s): J69.0 - Pneumonitis due to inhalation of food and vomit (5) Elevated troponin: Most likely related to type II myocardial infarction. Cannot exclude other etiologies. May benefit from further evaluation, which can be done as an outpatient. Status: Acute (6) On continuous oral anticoagulation: Patient has been taking Eliquis. Currently is on hold due to the anemia and the need for blood transfusion. Possibly requires GI work-up before restarting Status: Acute (7) Pleural effusion, right: He had a thoracentesis yesterday currently has very minimal fluid in the right side. We will continue the current management approach. Status: Acute (8) Presence of permanent cardiac pacemaker: The pacemaker function was found to be appropriate. May continue the current follow-up schedule. Status: Acute Additional A&P Information The other problems are History of DVT History of venous insufficiency, status post ablation History of essential benign hypertension, currently normotensive History of dyslipidemia Other problems are as outlined before Attestations Medical Necessity Statement*: Disposition as per the primary Coding Level of Care Code Acute Digital Computer Operator for g Fwd History Detailed Exam Detailed Medical Decision Making Moderate Complexity Diagnoses Acute respiratory failure with hypoxia and hypercarbia J96.01; J96.02 Chronic atrial fibrillation I48.20 Acute on chronic systolic heart failure I50.23 Aspiration pneumonia J69.0 Aspiration pneumonia type: unspecified Laterality: left Lung location: unspecified part of lung Elevated troponin R77.8 On continuous oral anticoagulation Z79.01 Pleural effusion, right J90 Presence of permanent cardiac pacemaker Z95.0 Time Spent (min) 35
[2020-10-21] MEDS: midodrine 5 mg TABLET 10 MG PO (17:29)
[2020-10-21] MEDS: sucralfate 1 gm Tablet PO (17:30)
[2020-10-21] MEDS: magnesium lactate 84 mg Tablet PO (18:43)
[2020-10-21] MEDS: azithromycin 500 MG in sodium chloride 0.9% 250 ML 250 MG IV (20:43)
[2020-10-22] VITALS (14 sets, daily range): BP systolic 100–127; BP diastolic 57–78; PULSE 54–96; RESP 17–30; TEMP 36.6–36.9; O2SAT 90–100; BMI 27.1
[2020-10-22] MEDS: pantoprazole 40 mg SDV IVP ×2 (03:41→14:33)
[2020-10-22 05:13] LABS: ABG PH Result 7.47 (7.35-7.45); Arterial Blood Gas Hematocrit 28.5 % (42-52); Base Excess ABG 17.3 mmol/L (-2.0-2.0); Blood Gas Allen Test Pos; Blood Gas Sample Site Radial, right; Blood Gas Sample Type Arterial; HCO3 ABG 43.4 mmol/L (22-26); Oxygen Device BIPAP; PO2 ABG 70.9 mmHg (80.0-100.0)
[2020-10-22 05:14] LABS: ABG PCO2 60.3 mmHg (35-45)
[2020-10-22 06:09] LABS: Basophils # 0.1 10^3/uL (0.0-0.1); Basophils % 0.4 %; Eosinophils # 0.4 10^3/uL (0.0-0.8); Eosinophils % 2.6 %; Hematocrit 30.9 % (42.0-52.0); Hemoglobin 9.5 g/dL (11.7-16.6); Lymphocytes # 0.6 10^3/uL (0.8-4.8); Lymphocytes % 4.4 %; Mean Corpuscular HGB Conc 30.7 g/dL (30.0-36.0); Mean Corpuscular Hemoglobin 29.1 pg (28.0-34.0); Mean Corpuscular Volume 94.5 fL (80-94); Mean Platelet Volume 10.7 fL (7.4-10.4); Monocytes # 1.1 10^3/uL (0.2-0.9); Monocytes % 7.5 %; Neutrophils # 11.87 10^3/uL (1.8-7.7); Neutrophils % 84.5 %; Nucleated Red Blood Cells % 0 %; Platelet Count 307 10^3/cmm (130-400); Red Blood Count 3.27 10^6/uL (4.1-5.3); Red Cell Distribution Width 15.4 % (12.1-15.1); White Blood Count 14.1 10^3/uL (4.0-10.0)
[2020-10-22 06:21] LABS: INR 1.44 (0.8-1.2)
[2020-10-22 06:39] LABS: NT Pro B Type Natriuretic Pept 7640 pg/mL (0-450); Procalcitonin 0.16 ng/mL (0-0.5)
[2020-10-22 06:50] LABS: Alanine Aminotransferase 14 U/L (0-41); Albumin Level 1.9 g/dL (3.5-5.2); Alkaline Phosphatase 129 IU/L (40-130); Aspartate Amino Transferase 23 U/L (0-40); Blood Urea Nitrogen 30 mg/dL (8-23); C Reactive Protein 88.2 mg/L (0.0-4.9); Calcium 7.4 mg/dL (8.5-10.5); Carbon Dioxide 37 mmol/L (22-29); Chloride 98 mmol/L (98-107); Creatinine Clr Calc Pharmacy 80.5459; Globulin 3.2 g/dL (1.3-4.6); Glucose 88 mg/dL (65-115); Osmolality Calculated 300 mOsm/kg (285-295); Phosphorus 2.5 mg/dL (2.5-4.5); Sodium 142 mmol/L (136-145); Total Bilirubin 0.6 mg/dL (0.15-1.2); Total Protein 5.1 g/dL (6.6-8.7)
--- NOTE | 2020-10-22 07:00 | XRR_ITS ---
PROCEDURE INFORMATION: Exam: XR Chest Exam date and time: 10/22/2020 7:00 AM Age: 85 years old Clinical indication: Shortness of breath; Additional info: SOB TECHNIQUE: Imaging protocol: XR of the chest. Views: 1 view. COMPARISON: CR (CHEST, ) 10/21/2020 9:46 AM FINDINGS: Tubes, catheters and devices: A permanent pacemaker appears intact. Lungs: There is pulmonary vascular congestion with perihilar and basilar infiltrates and atelectasis greater on the right side. Pleural spaces: Small pleural effusions are present larger on the right. Heart/Mediastinum: The cardiac silhouette is enlarged but unchanged. Bones/joints: Unremarkable. XR/XR chest 1V portable [id number] IMPRESSION: 1. CHF with pulmonary edema. 2. The pulmonary infiltrates and basilar atelectasis are worsening since previous study.
[2020-10-22] MEDS: ascorbic acid 500 mg Tablet PO (09:13)
[2020-10-22] MEDS: midodrine 5 mg TABLET 10 MG PO ×3 (09:13→21:33)
[2020-10-22] MEDS: potassium chloride ER 20 mEq Tablet 40 MEQ PO (09:13)
[2020-10-22] MEDS: chlorhexidine gluconate 4% Btl 118 mL 1 APPLIC TOPICAL ×2 (09:14→18:17)
[2020-10-22] MEDS: sucralfate 1 gm Tablet PO ×2 (09:14→18:16)
[2020-10-22] MEDS: ferrous sulfate EC 325 mg Tablet PO (09:14)
[2020-10-22] MEDS: magnesium lactate 84 mg Tablet PO ×2 (09:27→18:16)
--- NOTE | 2020-10-22 10:58 | PM.PN ---
Subjective Subjective: Interval history: Denies pain Vitals/I&O/Wt Last Vital Signs Temp 98.5 F 10/22/20 07:43 Pulse 61 10/22/20 07:43 Resp 22 H 10/22/20 07:43 BP 116/67 10/22/20 07:43 Pulse Ox 96 10/22/20 07:43 10/21/20 10/22/20 10/22/20 22:59 06:59 14:59 Intake Total 710 / 2060.000 350 / 2410.000 460 / 460 Output Total 950 / 950 Balance -240 / 1110.000 350 / 1460.000 460 / 460 Physical Exam Const: COMMON NORMALS: no acute distress and patient oriented x3 GENERAL APPEARANCE: frail appearing HENMT: COMMON NORMALS: oropharynx normal Neck/C-Spine: GENERAL: Yes JVD Resp: COMMON NORMALS: normal respiratory effort AUSCULTATION: diminished lung sounds Cardio: COMMON NORMALS: regular rhythm, S1 normal heart sound present, S2 normal heart sound present and No murmurs present (Cardio) RHYTHM: regular rhythm HEART SOUNDS: S1 normal heart sound present and S2 normal heart sound present GI: COMMON NORMALS: Normal to inspection, nondistended, normoactive bowel sounds present, Soft to palpation and non-tender PALPATION: Yes Soft to palpation Extremity: COMMON NORMALS: no joint enlargement GENERAL: Yes edema (2+) Neuro: COMMON NORMALS: patient oriented x3 and moves all extremities Skin: COMMON NORMALS: no rashes or lesions noted GENERAL SKIN EXAM: no rashes or lesions noted Urinary Catheter Management^: Estrada: Cath Placed During This Visit: yes Reason for Continuing Indwelling Catheter: Other Urinary Catheter Date of Insertion: 10/15/20 Urinary Catheter Time of Insertion: 14:04 Data : 10/22/20 05:42 10/22/20 05:42 Micro: Microbiology 10/20/20 16:20 Urine Culture - Preliminary Urine Catheterized 10/20/20 10:45 Gram Stain - Final Pleural Fluid Body Fluid Culture - Preliminary 10/20/20 19:03 Blood Culture - Preliminary Blood NEGATIVE TO DATE 10/20/20 17:08 Blood Culture - Preliminary Blood NEGATIVE TO DATE 10/20/20 16:38 MRSA Culture - Final Nose A&P Assessment and plan (1) Acute respiratory failure with hypoxia: CHF/fluid overload on imaging today. Discussed with his daughter. Blood pressure today appears to be better. We will cautiously trial diuresis, monitoring blood pressure. Continue antibiotics for pneumonia. He does not appear to have very many signs of aspiration at this time. Continue to monitor. Wean off oxygen as tolerating. Requiring 3 L currently, but noted hypoxic on 30% FiO2 with BiPAP early this morning. ABG 7.47/60.3/70.9. Systolic congestive heart failure, EF 40% on echo 10/16. Severe pulmonary hypertension noted. Mild MVR. Mild to moderate TVR. No PE on CTA 10/16. Large esophageal hiatal hernia. Moderate right pleural effusion, now status post thoracentesis 10/20. Not empyema, but looks like could be exudative. Status: Acute (2) Diastolic CHF: Status: Acute (3) Pneumonia: Status: Acute (4) Lower extremity edema: Status: Acute (5) Coronary artery disease: Status: Acute Qualifiers: Coronary Disease-Associated Artery/Lesion type: [place] artery [place] vs. transplanted heart: [place] heart Associated angina: without angina Qualified Code(s): I25.10 - Atherosclerotic heart disease of [place] coronary artery without angina pectoris (6) Atrial fibrillation: Status: Acute Qualifiers: Atrial fibrillation type: unspecified chronic Qualified Code(s): I48.20 - Chronic atrial fibrillation, unspecified (7) NSTEMI (non-ST elevated myocardial infarction): Status: Acute (8) Left leg DVT: Status: Acute (9) Anemia: Status: Acute (10) GI bleed: Status: Acute (11) Acute respiratory failure with hypoxia and hypercarbia: Status: Acute (12) Pleural effusion, right: Status: Acute (13) Delirium: Status: Acute (14) Aspiration pneumonia: Status: Acute Qualifiers: Aspiration pneumonia type: unspecified Laterality: left Lung location: unspecified part of lung Qualified Code(s): J69.0 - Pneumonitis due to inhalation of food and vomit (15) Pulmonary hypertension: Status: Acute (16) Parapneumonic effusion: Status: Acute (17) Sepsis: Status: Acute Attestations Medical Necessity Statement*: Continue admission for assessment of management of hypoxic history failure, acute CHF/fluid overload, pneumonia. Coding Level of Care Code Acute Surface Grinding Machine Hand for [facility] Diagnoses Acute respiratory failure with hypoxia J96.01 Diastolic CHF I50.30 Pneumonia J18.9 Lower extremity edema R60.0 Coronary artery disease I25.10 Coronary Disease-Associated Artery/Lesion type: [place] artery [place] vs. transplanted heart: [place] heart Associated angina: without angina Atrial fibrillation I48.20 Atrial fibrillation type: unspecified chronic NSTEMI (non-ST elevated myocardial infarction) I21.4 Left leg DVT I82.402 Anemia D64.9 GI bleed K92.2 Acute respiratory failure with hypoxia and hypercarbia J96.01; J96.02 Pleural effusion, right J90 Delirium R41.0 Aspiration pneumonia J69.0 Aspiration pneumonia type: unspecified Laterality: left Lung location: unspecified part of lung Pulmonary hypertension I27.20 Parapneumonic effusion J18.9; J91.8 Sepsis A41.9
[2020-10-22] MEDS: vancomycin 1,250 MG/250 ML PIGGYBACK 250 MG IV (13:00)
[2020-10-22] MEDS: latanoprost 0.005% Op Soln 2.5 mL Btl 1 DROP EYE-BOTH (13:07)
--- NOTE | 2020-10-22 14:15 | PC.SOCIAL ---
IMM Updated Updated pt on Pg 2 IMM. No questions voiced. Provided pt a copy. Signed, dated, & timed copy in chart.
[2020-10-22] MEDS: bumetanide 0.25 mg/mL SDV 4 mL 1 MG IV (14:27)
--- NOTE | 2020-10-22 18:21 | P.PN_ITS ---
Subjective Subjective: Interval history: Patient seems to be more alert and oriented today. Denies any chest pain or chest tightness. No unusual shortness of breath. No fever or chills. No cough. Medications: Reviewed: Yes Medication Review Details: Current Medications Acetaminophen (Acetaminophen 325 Mg Tablet) 650 mg PO Q6H PRN PRN Reason: Mild/Mod Pain Or Temp >/= 101 Albuterol/Ipratropium (Ipratropium-Albuterol 3 Ml Neb) 3 ml INHALATION QID.RESPIRATORY PRN PRN Reason: Shortness of Breath Last Admin: 10/21/20 07:36 Dose: 3 ml Documented by: Ascorbic Acid (Ascorbic Acid 500 Mg Tablet) 500 mg PO DAILY@0800 [facility] Last Admin: 10/22/20 09:13 Dose: 500 mg Documented by: Atorvastatin Calcium (Atorvastatin 40 Mg Tablet) 40 mg PO BEDTIME [facility] Last Admin: 10/21/20 20:48 Dose: Not Given Documented by: Bumetanide (Bumetanide 0.25 Mg/Ml Sdv 4 Ml) 1 mg IV Q12H [facility] Last Admin: 10/22/20 14:27 Dose: 1 mg Documented by: Chlorhexidine Gluconate (Chlorhexidine Gluconate 4% Btl 118 Ml) 1 applic TOPICAL BID [facility] Last Admin: 10/22/20 18:17 Dose: 1 applic Documented by: Ferrous Sulfate (Ferrous Sulfate Ec 325 Mg Tablet) 325 mg PO DAILY@0800 [facility] Last Admin: 10/22/20 09:14 Dose: 325 mg Documented by: Imipenem/Cilastatin Sodium 500 (mg/ Sodium Chloride) 100 mls @ 200 mls/hr IV Q6H [facility]; Protocol Last Infusion: 10/22/20 13:44 Dose: Infused Documented by: Vancomycin/PEG/NADA/Lysine/Water (Vancocin) 1,250 mg in 250 mls @ 250 mls/hr IV Q12H [facility] Last Infusion: 10/22/20 14:33 Dose: Infused Documented by: Azithromycin 500 mg/ Sodium (Chloride) 250 mls @ 250 mls/hr IV Q24H [facility]; Protocol Last Infusion: 10/21/20 21:57 Dose: Infused Documented by: Sodium Chloride (Sodium Chloride 0.9%) 500 mls @ 999 mls/hr IV .Q31M PRN PRN Reason: FOR MAP<65 Latanoprost (Latanoprost 0.005% Op Soln 2.5 Ml Btl) 1 drop EYE-BOTH DAILY@0800 [facility] Last Admin: 10/22/20 13:07 Dose: 1 drop Documented by: Lorazepam (Lorazepam 2 Mg/Ml Inj 1 Ml) 1 mg IVP Q8H PRN PRN Reason: ANXIETY Magnesium Lactate (Magnesium Lactate 84 Mg Tablet) 84 mg PO BID [facility] Last Admin: 10/22/20 18:16 Dose: 84 mg Documented by: Midodrine (Midodrine 5 Mg Tablet) 10 mg PO Q6H [facility] Last Admin: 10/22/20 18:16 Dose: 10 mg Documented by: Morphine Sulfate (Morphine 4 Mg/Ml Sdv 1 Ml) 1 mg IVP Q2H PRN PRN Reason: SEVERE PAIN Ondansetron HCl (Ondansetron 2 Mg/Ml Sdv 2 Ml) 4 mg IVP Q8H PRN PRN Reason: vomiting, or N/V if npo Pantoprazole Sodium (Pantoprazole 40 Mg Sdv) 40 mg IVP Q12H [facility] Last Admin: 10/22/20 14:33 Dose: 40 mg Documented by: Potassium Chloride (Potassium Chloride Er 20 Meq Tablet) 40 meq PO DAILY [facility] Last Admin: 10/22/20 09:13 Dose: 40 meq Documented by: Sucralfate (Sucralfate 1 Gm Tablet) 1 gm PO BIDAC [facility] Last Admin: 10/22/20 18:16 Dose: 1 gm Documented by: Vitals/I&O/Wt Last Vital Signs Temp 98.1 F 10/22/20 16:00 Pulse 63 10/22/20 16:00 Resp 20 H 10/22/20 16:00 BP 103/67 10/22/20 16:00 Pulse Ox 90 10/22/20 16:00 10/22/20 10/22/20 10/22/20 06:59 14:59 22:59 Intake Total 350 / 2410.000 1050 / 1050 240 / 1290 Balance 350 / 5196.040 2928 / 1050 240 / 1290 Physical Exam Narrative: EXAM NARRATIVE: GENERAL: The patient is alert and oriented times two. Not in any acute distress. Patient is hard of hearing. HEENT: Minimal pallor, icterus or lymphadenopathy.Oral cavity: There are no mucous membrane lesions. NECK: Trachea appears to be central. No masses noted. No JVD or thyromegaly appreciated. RESPIRATORY: Chest is symmetrical. No intercostals muscle retraction or any accessory muscle activation. There is no chest wall tenderness. Breath sounds are heard bilaterally. No rales or rhonchi heard. No evidence of any consolidation. BREASTS: Deferred. HEART: The heart sounds are variable. No S3 or S4. Systolic murmur grade 3/6 the mitral area. No diastolic murmurs.. No pericardial rub ABDOMEN: No vessel pulsations or distention. No tenderness. No organomegaly kamla reciated. Bowel sounds are normally heard. : Deferred. RECTAL: Deferred. LYMPHATIC: No lymphadenopathy noted in the neck or groin. EXTREMITIES: 1+ edema both lower extremities. Features of chronic venous stasis. MUSCULOSKELETAL: No acute joint deformities or swelling SKIN: There are no significant rashes or ecchymosis NEUROPSYCHIATRIC: The patient is alert and oriented x2. Appears to be in a good mood. No tremors or rigidity noted. Urinary Catheter Management^: Estrada: Cath Placed During This Visit: yes Reason for Continuing Indwelling Catheter: Other Urinary Catheter Date of Insertion: 10/15/20 Urinary Catheter Time of Insertion: 14:04 Data : 10/22/20 05:42 10/22/20 05:42 Micro: Microbiology 10/20/20 16:20 Urine Culture - Preliminary Urine Catheterized 10/20/20 10:45 Gram Stain - Final Pleural Fluid Body Fluid Culture - Preliminary 10/20/20 19:03 Blood Culture - Preliminary Blood NEGATIVE TO DATE 10/20/20 17:08 Blood Culture - Preliminary Blood NEGATIVE TO DATE A&P Assessment and plan (1) Acute respiratory failure with hypoxia and hypercarbia: Patient has significant clinical improvement. Currently he is on oxygen by nasal cannula. The respiratory status seems to be stable. Status: Acute (2) Chronic atrial fibrillation: The heart rate seems to be under control. He has frequent PVCs on the monitor. Blood pressure is running low. Currently may continue on the current medications. I may add magnesium to the current medications. He still has PVCs and short runs of nonsustained V. tach on the monitor. There may be some improvement in the frequency of the arrhythmia Status: Acute (3) Acute on chronic systolic heart failure: Clinically appears to be compensated. May continue on careful IV diuresis. Status: Acute (4) Aspiration pneumonia: Antibiotics treatment as per the primary. Chest x-ray shows bibasilar atelectasis. No definite infiltrate. Status: Acute Qualifiers: Aspiration pneumonia type: unspecified Laterality: left Lung location: unspecified part of lung Qualified Code(s): J69.0 - Pneumonitis due to inhalation of food and vomit (5) Elevated troponin: Most likely related to type II myocardial infarction. Consider myocardial perfusion imaging, once his noncardiac issues are stabilized Status: Acute (6) On continuous oral anticoagulation: May need a GI work-up, before starting the oral anticoagulation. This needs to be discussed Status: Acute (7) Pleural effusion, right: No significant recurrence of effusion. May continue on the current measures. Status: Acute (8) Presence of permanent cardiac pacemaker: The pacemaker function was found to be appropriate. May continue the current follow-up schedule. 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
[2020-10-22] MEDS: ipratropium-albuterol 3 mL Neb INHALATION (19:54)
[2020-10-22] MEDS: azithromycin 500 MG in sodium chloride 0.9% 250 ML 250 MG IV (20:42)
[2020-10-22] MEDS: atorvastatin 40 mg Tablet PO (21:33)
[2020-10-23] VITALS (19 sets, daily range): BP systolic 94–118; BP diastolic 55–71; PULSE 50–88; RESP 13–37; TEMP 36.6–36.9; O2SAT 90–100
[2020-10-23] MEDS: vancomycin 1,250 MG/250 ML PIGGYBACK 250 MG IV (02:12)
[2020-10-23] MEDS: pantoprazole 40 mg SDV IVP ×2 (03:14→15:28)
--- NOTE | 2020-10-23 03:26 | PC.NURSE ---
Dr. Toney requested we hold bumex dose that was due at 0230 due to BP being 106/65
[2020-10-23] MEDS: midodrine 5 mg TABLET 10 MG PO ×4 (03:49→22:26)
[2020-10-23 04:34] LABS: ABG PH Result 7.45 (7.35-7.45); Arterial Blood Gas Hematocrit 30.4 % (42-52); Base Excess ABG 17.8 mmol/L (-2.0-2.0); Blood Gas Allen Test Pos; Blood Gas Sample Type Arterial; HCO3 ABG 44.4 mmol/L (22-26)
[2020-10-23 04:35] LABS: Blood Gas Operator Identificat HARKR; Blood Gas Sample Site Radial, left; Oxygen Device NC
[2020-10-23] MEDS: sucralfate 1 gm Tablet PO ×2 (06:49→16:43)
[2020-10-23] MEDS: ipratropium-albuterol 3 mL Neb INHALATION (07:31)
[2020-10-23 07:48] LABS: Basophils # 0.1 10^3/uL (0.0-0.1); Basophils % 0.3 %; Eosinophils # 0.3 10^3/uL (0.0-0.8); Eosinophils % 1.7 %; Hematocrit 31.8 % (42.0-52.0); Hemoglobin 9.7 g/dL (11.7-16.6); Lymphocytes # 0.5 10^3/uL (0.8-4.8); Mean Corpuscular HGB Conc 30.5 g/dL (30.0-36.0); Mean Corpuscular Hemoglobin 29.4 pg (28.0-34.0); Mean Corpuscular Volume 96.4 fL (80-94); Mean Platelet Volume 10.6 fL (7.4-10.4); Monocytes # 1.1 10^3/uL (0.2-0.9); Monocytes % 6.6 %; Neutrophils # 14.83 10^3/uL (1.8-7.7); Nucleated Red Blood Cells % 0 %; Platelet Count 320 10^3/cmm (130-400); Red Cell Distribution Width 15.5 % (12.1-15.1); White Blood Count 16.9 10^3/uL (4.0-10.0)
[2020-10-23 08:04] LABS: INR 1.43 (0.8-1.2)
[2020-10-23 08:13] LABS: NT Pro B Type Natriuretic Pept 16580 pg/mL (0-450); Procalcitonin 0.11 ng/mL (0-0.5)
[2020-10-23 08:24] LABS: Alanine Aminotransferase 10 U/L (0-41); Albumin Level 2.1 g/dL (3.5-5.2); Alkaline Phosphatase 119 IU/L (40-130); Anion Gap 8.2 (5-19); Aspartate Amino Transferase 22 U/L (0-40); Blood Urea Nitrogen 29 mg/dL (8-23); C Reactive Protein 55.1 mg/L (0.0-4.9); Calcium 7.5 mg/dL (8.5-10.5); Chloride 95 mmol/L (98-107); Creatinine Clr Calc Pharmacy 80.5459; Glucose 90 mg/dL (65-115); Magnesium 2.1 mg/dL (1.7-2.3); Osmolality Calculated 299 mOsm/kg (285-295); Phosphorus 2.4 mg/dL (2.5-4.5); Potassium 3.2 mmol/L (3.5-5.1); Sodium 142 mmol/L (136-145); Total Bilirubin 0.5 mg/dL (0.15-1.2); Total Protein 5.1 g/dL (6.6-8.7)
[2020-10-23 08:52] LABS: Carbon Dioxide 42 mmol/L (22-29)
[2020-10-23] MEDS: magnesium lactate 84 mg Tablet PO ×2 (10:48→18:38)
[2020-10-23] MEDS: ferrous sulfate EC 325 mg Tablet PO (10:49)
[2020-10-23] MEDS: latanoprost 0.005% Op Soln 2.5 mL Btl 1 DROP EYE-BOTH (10:49)
[2020-10-23] MEDS: ascorbic acid 500 mg Tablet PO (10:49)
[2020-10-23] MEDS: chlorhexidine gluconate 4% Btl 118 mL 1 APPLIC TOPICAL ×2 (11:16→18:38)
[2020-10-23] MEDS: potassium chloride ER 20 mEq Tablet 40 MEQ PO ×2 (11:16→18:48)
[2020-10-23 11:19] LABS: ABG PCO2 64.6 mmHg (35-45)
--- NOTE | 2020-10-23 12:27 | P.PN_ITS ---
Subjective Subjective: Interval history: Runs of NSVT and frequent PVC's noted on telemetry. Patient denies any chest pain and states that he is ready to give up. He is in process of selling his house. He tells me about arrangements for him and states he wants to pass away naturally. He does not want medications to put him to sleep but he does not want anything major done. He told me about his and that he is going to talk to his daughter about it. He appears better to me as compared to Friday and when I told him that, he replied I 2 months ago (since he has not been able to walk and is at [place]). Medications: Reviewed: Yes Medication Review Details: Current Medications Acetaminophen (Acetaminophen 325 Mg Tablet) 650 mg PO Q6H PRN PRN Reason: Mild/Mod Pain Or Temp >/= 101 Albuterol/Ipratropium (Ipratropium-Albuterol 3 Ml Neb) 3 ml INHALATION QID.RESPIRATORY PRN PRN Reason: Shortness of Breath Last Admin: 10/23/20 07:31 Dose: 3 ml Documented by: Ascorbic Acid (Ascorbic Acid 500 Mg Tablet) 500 mg PO DAILY@0800 [facility] Last Admin: 10/23/20 10:49 Dose: 500 mg Documented by: Atorvastatin Calcium (Atorvastatin 40 Mg Tablet) 40 mg PO BEDTIME [facility] Last Admin: 10/22/20 21:33 Dose: 40 mg Documented by: Bumetanide (Bumetanide 0.25 Mg/Ml Sdv 4 Ml) 1 mg IV Q12H [facility] Last Admin: 10/23/20 15:25 Dose: 1 mg Documented by: Chlorhexidine Gluconate (Chlorhexidine Gluconate 4% Btl 118 Ml) 1 applic TOPICAL BID [facility] Last Admin: 10/23/20 11:16 Dose: 1 applic Documented by: Ferrous Sulfate (Ferrous Sulfate Ec 325 Mg Tablet) 325 mg PO DAILY@0800 [facility] Last Admin: 10/23/20 10:49 Dose: 325 mg Documented by: Imipenem/Cilastatin Sodium 500 (mg/ Sodium Chloride) 100 mls @ 200 mls/hr IV Q6H [facility]; Protocol Last Infusion: 10/23/20 16:41 Dose: Infused Documented by: Azithromycin 500 mg/ Sodium (Chloride) 250 mls @ 250 mls/hr IV Q24H [facility]; Prot ocol Last Infusion: 10/22/20 21:51 Dose: Infused Documented by: Sodium Chloride (Sodium Chloride 0.9%) 500 mls @ 999 mls/hr IV .Q31M PRN PRN Reason: FOR MAP<65 Vancomycin/PEG/[place]DA/Lysine/Water (Vancocin) 1,250 mg in 250 mls @ 200 mls/hr IV Q18H [facility] Latanoprost (Latanoprost 0.005% Op Soln 2.5 Ml Btl) 1 drop EYE-BOTH DAILY@0800 [facility] Last Admin: 10/23/20 10:49 Dose: 1 drop Documented by: Lorazepam (Lorazepam 2 Mg/Ml Inj 1 Ml) 1 mg IVP Q8H PRN PRN Reason: ANXIETY Magnesium Lactate (Magnesium Lactate 84 Mg Tablet) 84 mg PO BID [facility] Last Admin: 10/23/20 10:48 Dose: 84 mg Documented by: Midodrine (Midodrine 5 Mg Tablet) 10 mg PO Q6H [facility] Last Admin: 10/23/20 15:41 Dose: 10 mg Documented by: Morphine Sulfate (Morphine 4 Mg/Ml Sdv 1 Ml) 1 mg IVP Q2H PRN PRN Reason: SEVERE PAIN Ondansetron HCl (Ondansetron 2 Mg/Ml Sdv 2 Ml) 4 mg IVP Q8H PRN PRN Reason: vomiting, or N/V if npo Pantoprazole Sodium (Pantoprazole 40 Mg Sdv) 40 mg IVP Q12H [facility] Last Admin: 10/23/20 15:28 Dose: 40 mg Documented by: Potassium Chloride (Potassium Chloride Er 20 Meq Tablet) 40 meq PO DAILY [facility] Last Admin: 10/23/20 11:16 Dose: 40 meq Documented by: Sucralfate (Sucralfate 1 Gm Tablet) 1 gm PO BIDAC [facility] Last Admin: 10/23/20 16:43 Dose: 1 gm Documented by: Vitals/I&O/Wt Last Vital Signs Temp 98.5 F 10/23/20 11:57 Pulse 62 10/23/20 11:57 Resp 20 H 10/23/20 11:57 BP 98/55 10/23/20 11:57 Pulse Ox 90 10/23/20 11:57 10/22/20 10/23/20 10/23/20 22:59 06:59 14:59 Intake Total 708 / 1758 350 / 2108 100 / 100 Output Total 1600 / 1600 900 / 2500 Balance -892 / 158 -550 / -392 100 / 100 Weight last 48 hrs Weight 200 lb Physical Exam Narrative: EXAM NARRATIVE: GENERAL: Averagely built and averagely nourished in no acute distress HEENT: Extraocular movement intact. Pupils equal round reactive to light. No pallor or icterus. NECK: No mass, + JVD CARDIOVASCULAR SYSTEM: S1-S2 irregular. Grade 3 LLSB systolic murmur RESPIRATORY SYSTEM: Decreased breath sounds bilateral bases. No wheezes rhonchi or rales heard.No use of accessory muscles. ABDOMEN: Soft, nontender and nondistended. EXTREMITIES: Trace-1+ edema. No signs of chronic venous insufficiency. 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 -Management as per primary team. 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 -I do not think there is any indication or need for further cardiac work-up at this stage. -He is due for right-sided thoracentesis tomorrow hopefully that will help with his shortness of breath. -Once he is adequately diuresed and stable from respiratory standpoint, may consider outpatient stress testing at the discretion of patient's primary car diologist Dr. Alexis. -May continue with diuresis per discretion of primary care team. 10/23/20 Patient denies any chest pain and states that he is ready to give up. He is in process of selling his house. He tells me about arrangements for him and states he wants to pass away naturally. He does not want medications to put him to sleep but he does not want anything major done. He told me about his and that he is going to talk to his daughter about it. He appears better to me as compared to Friday and when I told him that, he replied I 2 months ago (since he has not been able to walk and is at [place]). I spoke to the patient and his daughter Dorinda and after detailed discussion she expressed the desire to maintain current management without being too aggressive if he goes downhill. I spoke to her about IVC filter and she declined it. This was communicated to primary team. Status: Acute Qualifiers: Heart failure chronicity: acute on chronic Heart failure type: combined systolic and diastolic Qualified Code(s): I50.43 - Acute on chronic combined systolic (congestive) and diastolic (congestive) heart failure (3) Atrial fibrillation: Off Eliquis for thoracentesis and concerns Status: Acute Qualifiers: Atrial fibrillation type: unspecified chronic Qualified Code(s): I48.20 - Chronic atrial fibrillation, unspecified (4) NSTEMI (non-ST elevated myocardial infarction): Type 2 Status: Acute (5) Coronary artery disease: Mentioned in old chart. details unavailable. Status: Acute Qualifiers: Associated angina: without angina Coronary Disease-Associated Artery/Lesion type: [place] artery [place] vs. transplanted heart: [place] heart Qualified Code(s): I25.10 - Atherosclerotic heart disease of [place] coronary artery without angina pectoris Additional A&P Information Pleural effusion: S/p thoracentesis with removal of approximately 550 mL of exudative pleural fluid Mitral regurgitation and tricuspid valve regurgitation Hypokalemia Pulmonary HTN Anemia s/p PPM Thank you for allowing me to participate in patient' scare. Please feel free to call with questions or concerns. Attestations Medical Necessity Statement*: As per primary team Time Spent in Patient Care: Greater than 35 minutes (>than 50% of time spent in counselling and/or direct pt care on unit) . Coding Level of Care Code Acute Sap Bw Consultant for 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 Diagnoses Acute respiratory failure with hypoxia J96.01 Congestive heart failure I50.43 Heart failure chronicity: acute on chronic Heart failure type: combined systolic and diastolic Atrial fibrillation I48.20 Atrial fibrillation type: unspecified chronic NSTEMI (non-ST elevated myocardial infarction) I21.4 Coronary artery disease I25.10 Associated angina: without angina Coronary Disease-Associated Artery/Lesion type: [place] artery [place] vs. transplanted heart: [place] heart
[2020-10-23 13:58] LABS: Vancomycin Trough 27.7 ug/mL (10-15)
[2020-10-23] MEDS: bumetanide 0.25 mg/mL SDV 4 mL 1 MG IV (15:25)
--- NOTE | 2020-10-23 16:38 | P.PN_ITS ---
Subjective Subjective: Interval history: Mr. Farias has improved over the weekend though clearly he is dyspneic during my visit today. He has undergone prior thoracentesis on October 20, a day following my initial consultation visit. 550cc of dark to red-brown material was recovered. Cytology is negative for malignancy. It appears on yesterday's x-ray that his right-sided effusion is now beginning to return. I also note that he is BNP is 16,580 which is over double what it was yesterday. Also remains hypercarbic with a PCO2 of 64.6 and a PO2 of 54 on 2 L nasal cannula. He does have occult heme positive stools. Difficult have a conversations due to his dyspnea and difficulty with hearing as well. The only comment was that if the IVC filter was placed, will I go quickly ? Vitals/I&O/Wt Last Vital Signs Temp 97.8 F 10/23/20 15:16 Pulse 58 L 10/23/20 15:16 Resp 18 10/23/20 15:16 BP 102/58 10/23/20 15:16 Pulse Ox 95 10/23/20 15:16 10/23/20 10/23/20 10/23/20 06:59 14:59 22:59 Intake Total 350 / 2108 150 / 150 Output Total 900 / 2500 Balance -550 / -392 150 / 150 Weight last 48 hrs Weight 200 lb Physical Exam Resp: COMMON NORMALS: negative for normal respiratory effort and negative for clear to auscultation bilaterally EFFORT & INSPECTION: Yes tachypneic, Yes labored, Yes grunting, Yes uses accessory muscles and No tracheal deviation AUSCULTATION: not clear to auscultation bilaterally and diminished lung sounds on the right throughout Urinary Catheter Management^: Estrada: Cath Placed During This Visit: yes Reason for Continuing Indwelling Catheter: Other Urinary Catheter Date of Insertion: 10/15/20 Urinary Catheter Time of Insertion: 14:04 Data : 10/23/20 07:37 10/23/20 07:37 Micro: Microbiology 10/20/20 10:45 Gram Stain - Final Pleural Fluid Body Fluid Culture - Final 10/20/20 10:45 Mycobacterial Smear - Preliminary Body Fluids - Pleura 10/20/20 16:20 Urine Culture - Final Urine Catheterized A&P Assessment and plan (1) Left leg DVT: Left lower extremity DVT with contraindication to anticoagulation due to H&H drop and heme positive stools. Remains substantially dyspneic and I do not think, unfortunately, he can lie flat to allow for proper positioning and placement of IVC filter without full control of his airway which certainly may require intubation. I have asked our anesthesia colleague, Dr. Heredia, for her learned opinion as to whether we can manage his airway noninvasively to allow for IVC filter placement. I am hesitant to recommend this at this time. I will await her recommendations. 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
--- NOTE | 2020-10-23 16:40 | P.ANESASSM_ITS ---
Pre-Anesthetic Assessment Pre-Anesthetic Assessment: Height/Weight: Height 1.83 m Weight 90.718 kg Temp Pulse Resp BP Pulse Ox 97.8 F 58 L 18 102/58 95 10/23/20 15:16 10/23/20 15:16 10/23/20 15:16 10/23/20 15:16 10/23/20 15:16 Preop Diagnosis: DVT Proposed Procedure: [place] Filter placement Pulmonary: Comments: B/L moderate to large pleural effusion, Aspiration pneumonia, hypoxemic and hypercapnic on most recent ABG, requiring bipap at times, patient with visible sob/tachypnic, slight use of accessory muscles at times on exam CV/HEM: CV/HEM: Afib, CAD, CHF (Acute decompensated CHF - eleavated BNP), DVT, HTN and NH (STEMI) Comments: Severe pulmonary HTN, diffuse anasarca. pacemaker Anesthetic Plan: ASA status: 4 Anesthesia: MAC Other: Patient is experiencing acute decompensated heart failure, large b/l parapneumonic effusions d/t aspiration pneumonia, and, most troublesome, has Severe pulmonary HTN on echo. He has pacemaker, a fib, and NSTEMI. Patient would very likely requiring advanced airway intervention with any anesthesia d/t poor respiratory status. Risk of > 500 ml blood loss (7ml/kg in children): No Other Pertinent Information: Upon speaking with patient, he made several statements indicating a desire for end of life. He asked if Everything would be over' after we put the maida filter, referring to . I indicated this was a procedure done to help prolong life and prevent a PE. He states, I m done with all this and I just wanna be buried now. Meds/Allergies Current Medications: Current Medications Generic Name Dose Route Start Last Admin Trade Name Freq PRN Reason Stop Dose Admin Albuterol/Ipratrop ium 3 ml 10/16/20 10:53 10/23/20 07:31 Ipratropium-Albu terol 3 Ml Neb INHALATION 3 ml QID.RESPIRATORY P RN Administration Shortness of Taylor th Ascorbic Acid 500 mg 10/16/20 08:00 10/23/20 10:49 Ascorbic Acid 50 0 Mg Tablet PO 500 mg DAILY@0800 VITALY Administration Atorvastatin Calci um 40 mg 10/16/20 21:00 10/22/20 21:33 Atorvastatin 40 Mg Tablet PO 40 mg BEDTIME VITALY Administration Bumetanide 1 mg 10/22/20 11:00 10/23/20 15:25 Bumetanide 0.25 Mg/Ml Sdv 4 Ml IV 1 mg Q12H VITALY Administration Chlorhexidine Gluc carrie 1 applic 10/19/20 18:00 10/23/20 11:16 Chlorhexidine Gl uconate 4% Btl 118 Ml TOPICAL 1 applic BID VITALY Administration Ferrous Sulfate 325 mg 10/16/20 08:00 10/23/20 10:49 Ferrous Sulfate Ec 325 Mg Tablet PO 325 mg DAILY@0800 VITALY Administration Imipenem/Cilastati n Sodium 500 100 mls @ 200 mls /hr 10/20/20 10:00 10/23/20 13:14 mg/ Sodium Chlor katty IV 200 mls/hr Q6H VITALY Administration Protocol Azithromycin 500 m g/ Sodium 250 mls @ 250 mls /hr 10/20/20 20:00 10/22/20 21:51 Chloride IV Infused Q24H VITALY Infusion Protocol Latanoprost 1 drop 10/16/20 08:00 10/23/20 10:49 Latanoprost 0.00 5% Op Soln 2.5 Ml Btl EYE-BOTH 1 drop DAILY@0800 VITALY Administration Magnesium Lactate 84 mg 10/21/20 18:00 10/23/20 10:48 Magnesium Lactat e 84 Mg Tablet PO 84 mg BID VITALY Administration Midodrine 10 mg 10/20/20 22:00 10/23/20 15:41 Midodrine 5 Mg T ablet PO 10 mg Q6H VITALY Administration Pantoprazole Sodiu m 40 mg 10/15/20 13:30 10/23/20 15:28 Pantoprazole 40 Mg Sdv IVP 40 mg Q12H VITALY Administration Potassium Chloride 40 meq 10/17/20 09:10 10/23/20 11:16 Potassium Chlori de Er 20 Meq Table t PO 40 meq DAILY VITALY Administration Sucralfate 1 gm 10/16/20 09:10 10/23/20 06:49 Sucralfate 1 Gm Tablet PO 1 gm BIDAC VITALY Administration PFSH Anesthesia PFSH: Medical History Anemia Bradycardia by electrocardiography Chronic atrial fibrillation. 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 Family History Other Diabetes Social History Smoking and tobacco status: former smoker Alcohol intake: never Data Anesthesia CBC & Chem 7: 10/23/20 07:37 10/23/20 07:37 Other Labs: Laboratory Results - last 48 hr 10/22/20 10/22/20 10/22/20 05:00 05:42 05:42 WBC 14.1 H RBC 3.27 L Hgb 9.5 L Hct 30.9 L MCV 94.5 H MCH 29.1 MCHC 30.7 RDW 15.4 H Plt Count 307 MPV 10.7 H Neut % (Auto) 84.5 Lymph % (Auto) 4.4 Mccreary % (Auto) 7.5 Eos % (Auto) 2.6 Baso % (Auto) 0.4 Neut # (Auto) 11.87 H Lymph # (Auto) 0.6 L Mccreary # (Auto) 1.1 H Eos # (Auto) 0.4 Baso # (Auto) 0.1 Nucleated RBC % (auto) 0 Nucleated RBCs # 0.0 PT 18.00 H INR 1.44 H Specimen Type Arterial Sample Site Radial, right ABG pH 7.47 H ABG pCO2 60.3 H* ABG pO2 70.9 L ABG HCO3 43.4 H ABG Base Excess 17.3 H Brenden Test Pos Hematocrit 28.5 L O2 Delivery Device Bipap O2 Liters/Min FiO2 30.0 End User Consultant ID [id number] Sodium Potassium Chloride Carbon Dioxide Anion Gap BUN Creatinine GFR Calculation Glucose Calculated Osmolality Calcium Phosphorus Magnesium Total Bilirubin AST ALT Alkaline Phosphatase C-Reactive Protein NT-Pro-B Natriuret Pep Total Protein Albumin Globulin Procalcitonin Vancomycin Trough 10/22/20 10/23/20 10/23/20 05:42 04:24 07:37 WBC RBC Hgb Hct MCV MCH MCHC RDW Plt Count MPV Neut % (Auto) Lymph % (Auto) Mccreary % (Auto) Eos % (Auto) Baso % (Auto) Neut # (Auto) Lymph # (Auto) Mccreary # (Auto) Eos # (Auto) Baso # (Auto) Nucleated RBC % (auto) Nucleated RBCs # PT 17.80 H INR 1.43 H Specimen Type Arterial Sample Site Radial, left ABG pH 7.45 ABG pCO2 64.6 H* ABG pO2 54.0 L ABG HCO3 44.4 H ABG Base Excess 17.8 H Brenden Test Pos Hematocrit 30.4 L O2 Delivery Device Nc O2 Liters/Min 2.0 FiO2 End User Consultant ID [email or web address] Sodium 142 Potassium 3.0 L Chloride 98 Carbon Dioxide 37 H Anion Gap 10.0 BUN 30 H Creatinine 0.6 L GFR Calculation Not Reportable Glucose 88 Calculated Osmolality 300 H Calcium 7.4 L Phosphorus 2.5 Magnesium 2.0 Total Bilirubin 0.6 AST 23 ALT 14 Alkaline Phosphatase 129 C-Reactive Protein 88.2 H NT-Pro-B Natriuret Pep 7640 H Total Protein 5.1 L Albumin 1.9 L Globulin 3.2 Procalcitonin 0.16 Vancomycin Trough 10/23/20 10/23/20 10/23/20 07:37 07:37 12:45 WBC 16.9 H RBC 3.30 L Hgb 9.7 L Hct 31.8 L MCV 96.4 H MCH 29.4 MCHC 30.5 RDW 15.5 H Plt Count 320 MPV 10.6 H Neut % (Auto) 88.0 Lymph % (Auto) 3.0 Mccreary % (Auto) 6.6 Eos % (Auto) 1.7 Baso % (Auto) 0.3 Neut # (Auto) 14.83 H Lymph # (Auto) 0.5 L Mccreary # (Auto) 1.1 H Eos # (Auto) 0.3 Baso # (Auto) 0.1 Nucleated RBC % (auto) 0 Nucleated RBCs # 0.0 PT INR Specimen Type Sample Site ABG pH ABG pCO2 ABG pO2 ABG HCO3 ABG Base Excess Brenden Test Hematocrit O2 Delivery Device O2 Liters/Min FiO2 End User Consultant ID Sodium 142 Potassium 3.2 L Chloride 95 L Carbon Dioxide 42 H* Anion Gap 8.2 BUN 29 H Creatinine 0.7 GFR Calculation Not Reportable Glucose 90 Calculated Osmolality 299 H Calcium 7.5 L Phosphorus 2.4 L Magnesium 2.1 Total Bilirubin 0.5 AST 22 ALT 10 Alkaline Phosphatase 119 C-Reactive Protein 55.1 H NT-Pro-B Natriuret Pep 26804 H Total Protein 5.1 L Albumin 2.1 L Globulin 3.0 Procalcitonin 0.11 Vancomycin Trough 27.7 H* Micro: Microbiology 10/20/20 10:45 Gram Stain - Final Pleural Fluid Body Fluid Culture - Final 10/20/20 10:45 Mycobacterial Smear - Preliminary Body Fluids - Pleura 10/20/20 16:20 Urine Culture - Final Urine Catheterized Cardiac Studies: No Data to Display
[2020-10-23] MEDS: azithromycin 500 MG in sodium chloride 0.9% 250 ML 250 MG IV (19:44)
--- NOTE | 2020-10-23 21:05 | PM.PN ---
Subjective Subjective: Interval history: This morning having some lower abdominal discomfort. And some loose dark stools. Discussed with him and his daughter at bedside regarding his condition, hypoxia, additional evaluation of the lower abdominal discomfort. Discussed also consideration regarding reevaluation regarding placement of IVC filter. Later in the day, during evaluation of multiple practitioners including cardiothoracic surgery current cardiology, patient appears to be indicating he is not interested in any additional invasive procedures that may prolong his life. Vitals/I&O/Wt Last Vital Signs Temp 97.8 F 10/23/20 19:40 Pulse 71 10/23/20 20:10 Resp 24 H 10/23/20 19:40 BP 116/68 10/23/20 19:40 Pulse Ox 94 10/23/20 20:10 10/23/20 10/23/20 10/23/20 06:59 14:59 22:59 Intake Total 350 / 2108 150 / 150 440 / 590 Output Total 900 / 2500 1200 / 1200 Balance -550 / -392 150 / 150 -760 / -610 Weight last 48 hrs Weight 95.799 kg Weight 90.718 kg Physical Exam Const: COMMON NORMALS: no acute distress and patient oriented x3 GENERAL APPEARANCE: frail appearing HENMT: COMMON NORMALS: oropharynx normal Neck/C-Spine: GENERAL: Yes JVD Resp: COMMON NORMALS: normal respiratory effort AUSCULTATION: diminished lung sounds Cardio: COMMON NORMALS: regular rhythm, S1 normal heart sound present, S2 normal heart sound present and No murmurs present (Cardio) RHYTHM: regular rhythm HEART SOUNDS: S1 normal heart sound present and S2 normal heart sound present GI: COMMON NORMALS: Normal to inspection, nondistended, normoactive bowel sounds present and Soft to palpation PALPATION: Yes Soft to palpation and Yes Tenderness to palpation present (GI) Details: other (lower) Extremity: COMMON NORMALS: no joint enlargement GENERAL: Yes edema (2+) Neuro: COMMON NORMALS: patient oriented x3 and moves all extremities Skin: COMMON NORMALS: no rashes or lesions noted GENERAL SKIN EXAM: no rashes or lesions noted Urinary Catheter Management^: Estrada: Cath Placed During This Visit: yes Reason for Continuing Indwelling Catheter: Other Urinary Catheter Date of Insertion: 10/15/20 Urinary Catheter Time of Insertion: 14:04 Data : 10/23/20 07:37 10/23/20 07:37 Micro: Microbiology 10/20/20 10:45 Gram Stain - Final Pleural Fluid Body Fluid Culture - Final 10/20/20 10:45 Mycobacterial Smear - Preliminary Body Fluids - Pleura 10/20/20 16:20 Urine Culture - Final Urine Catheterized A&P Assessment and plan (1) Acute respiratory failure with hypoxia: Oxygenation appears stabilized at around 2 L, we have reached out for reconsideration of possibility of placement of IVC filter as per discussion with him and his daughter earlier this morning. During today, however, it appears on discussion with multiple other practitioners patient indicates when discussing details of possibility of placement of filter he would not want additional procedures that may prolong his life. Given his progressive decline in health, functional capacity, it is my understanding discussions have been had regarding possibility of transitioning to less aggressive care. From what the patient is expressing today appears he may be intending to proceed with hospice and/or even comfort care. Continue to readdress goals of care with patient and daughter. Continue antibiotic for now, diuretics, depending on additional goals of care. Systolic congestive heart failure, EF 40% on echo 10/16. Severe pulmonary hypertension noted. Mild MVR. Mild to moderate TVR. No PE on CTA 10/16. Large esophageal hiatal hernia. Moderate right pleural effusion, now status post thoracentesis 10/20. Not empyema, but looks like could be exudative. Status: Acute (2) Diastolic CHF: Status: Acute (3) Pneumonia: Status: Acute (4) Lower extremity edema: Status: Acute (5) Coronary artery disease: Status: Acute Qualifiers: Coronary Disease-Associated Artery/Lesion type: [place] artery [place] vs. transplanted heart: [place] heart Associated angina: without angina Qualified Code(s): I25.10 - Atherosclerotic heart disease of [place] coronary artery without angina pectoris (6) Atrial fibrillation: Status: Acute Qualifiers: Atrial fibrillation type: unspecified chronic Qualified Code(s): I48.20 - Chronic atrial fibrillation, unspecified (7) NSTEMI (non-ST elevated myocardial infarction): Status: Acute (8) Left leg DVT: Status: Acute (9) Anemia: Status: Acute (10) GI bleed: Status: Acute (11) Acute respiratory failure with hypoxia and hypercarbia: Status: Acute (12) Pleural effusion, right: Status: Acute (13) Delirium: Status: Acute (14) Aspiration pneumonia: Status: Acute Qualifiers: Aspiration pneumonia type: unspecified Laterality: left Lung location: unspecified part of lung Qualified Code(s): J69.0 - Pneumonitis due to inhalation of food and vomit (15) Pulmonary hypertension: Status: Acute (16) Parapneumonic effusion: Status: Acute (17) Sepsis: Status: Acute Attestations Medical Necessity Statement*: Continue admission for assessment and management of hypoxic respiratory failure, pneumonia, CHF, in the setting of DVT, GI bleeding, intolerant of anticoagulation, continued advance care planning and goals of care discussions to tailor care according to patient and family wishes. Coding Level of Care Code Acute [place] Supervisor for [facility] Fwd Diagnoses Acute respiratory failure with hypoxia J96.01 Diastolic CHF I50.30 Pneumonia J18.9 Lower extremity edema R60.0 Coronary artery disease I25.10 Coronary Disease-Associated Artery/Lesion type: [place] artery [place] vs. transplanted heart: [place] heart Associated angina: without angina Atrial fibrillation I48.20 Atrial fibrillation type: unspecified chronic NSTEMI (non-ST elevated myocardial infarction) I21.4 Left leg DVT I82.402 Anemia D64.9 GI bleed K92.2 Acute respiratory failure with hypoxia and hypercarbia J96.01; J96.02 Pleural effusion, right J90 Delirium R41.0 Aspiration pneumonia J69.0 Aspiration pneumonia type: unspecified Laterality: left Lung location: unspecified part of lung Pulmonary hypertension I27.20 Parapneumonic effusion J18.9; J91.8 Sepsis A41.9
[2020-10-23] MEDS: atorvastatin 40 mg Tablet PO (22:26)
[2020-10-24] VITALS (13 sets, daily range): BP systolic 103–118; BP diastolic 67–76; PULSE 48–77; RESP 13–24; TEMP 36.6–36.9; O2SAT 91–96
[2020-10-24] MEDS: bumetanide 0.25 mg/mL SDV 4 mL 1 MG IV (03:49)
[2020-10-24] MEDS: pantoprazole 40 mg SDV IVP ×2 (03:49→18:05)
[2020-10-24] MEDS: vancomycin 1,250 MG/250 ML PIGGYBACK 200 MG IV ×2 (04:09→21:19)
[2020-10-24] MEDS: midodrine 5 mg TABLET 10 MG PO ×4 (04:13→21:19)
[2020-10-24 06:16] LABS: Basophils # 0.1 10^3/uL (0.0-0.1); Basophils % 0.4 %; Eosinophils # 0.2 10^3/uL (0.0-0.8); Eosinophils % 1.6 %; Hematocrit 33.1 % (42.0-52.0); Lymphocytes # 0.8 10^3/uL (0.8-4.8); Lymphocytes % 5.2 %; Mean Corpuscular HGB Conc 30.2 g/dL (30.0-36.0); Mean Corpuscular Volume 95.9 fL (80-94); Mean Platelet Volume 11.1 fL (7.4-10.4); Monocytes # 1.2 10^3/uL (0.2-0.9); Neutrophils # 12.57 10^3/uL (1.8-7.7); Neutrophils % 84.2 %; Nucleated Red Blood Cells % 0 %; Platelet Count 315 10^3/cmm (130-400); Red Blood Count 3.45 10^6/uL (4.1-5.3); Red Cell Distribution Width 15.4 % (12.1-15.1); White Blood Count 14.9 10^3/uL (4.0-10.0)
[2020-10-24] MEDS: sucralfate 1 gm Tablet PO ×2 (06:16→18:05)
[2020-10-24 06:37] LABS: Alanine Aminotransferase 12 U/L (0-41); Albumin Level 2.1 g/dL (3.5-5.2); Alkaline Phosphatase 123 IU/L (40-130); Aspartate Amino Transferase 31 U/L (0-40); Blood Urea Nitrogen 27 mg/dL (8-23); Calcium 7.6 mg/dL (8.5-10.5); Chloride 95 mmol/L (98-107); Globulin 3.2 g/dL (1.3-4.6); Glucose 100 mg/dL (65-115); NT Pro B Type Natriuretic Pept 18680 pg/mL (0-450); Osmolality Calculated 299 mOsm/kg (285-295); Phosphorus 2.4 mg/dL (2.5-4.5); Sodium 142 mmol/L (136-145); Total Bilirubin 0.6 mg/dL (0.15-1.2); Total Protein 5.3 g/dL (6.6-8.7)
[2020-10-24 06:43] LABS: Carbon Dioxide 44 mmol/L (22-29)
--- NOTE | 2020-10-24 06:56 | P.PN_ITS ---
Subjective Subjective: Interval history: Mr. Farias appears reticent about proceeding with any type of procedure. I conferred with my colleague from anesthesia, Dr. Heredia yesterday and she was gracious without to interview and examine him yesterday afternoon. It is our impression that there would be a real possibility that complete airway control would be required if he were in the supine position for IVC filter placement due to his marked respiratory compromise. Vitals/I&O/Wt Last Vital Signs Temp 97.9 F 10/24/20 03:30 Pulse 62 10/24/20 03:30 Resp 24 H 10/24/20 03:30 BP 103/67 10/24/20 03:30 Pulse Ox 91 10/24/20 03:30 10/23/20 10/23/20 10/24/20 14:59 22:59 06:59 Intake Total 150 / 150 690 / 840 710 / 1550 Output Total 1675 / 1675 1050 / 2725 Balance 150 / 150 -985 / -835 -340 / -1175 Weight last 48 hrs Weight 210 lb 8 oz Weight 211 lb 3.2 oz Weight 200 lb Physical Exam Resp: COMMON NORMALS: negative for normal respiratory effort EFFORT & INSPECTION: Yes tachypneic, Yes labored, Yes grunting and Yes prolonged expiratory phase AUSCULTATION: abnormal I/E ratio Urinary Catheter Management^: Estrada: Cath Placed During This Visit: yes Reason for Continuing Indwelling Catheter: Other Urinary Catheter Date of Insertion: 10/15/20 Urinary Catheter Time of Insertion: 14:04 Data : 10/24/20 05:14 10/24/20 05:14 Micro: Microbiology 10/20/20 10:45 Gram Stain - Final Pleural Fluid Body Fluid Culture - Final 10/20/20 10:45 Mycobacterial Smear - Preliminary Body Fluids - Pleura 10/20/20 16:20 Urine Culture - Final Urine Catheterized A&P Assessment and plan (1) Left leg DVT: Given the respiratory compromise, do not think we can safely perform IVC filter placement without the high possibility for intubation to control his airway. As well, it appears that Mr. Farias has now decided that he does not wish for any type of substantial invasive procedure. Will cancel plans for IVC filter placement. Status: Acute Attestations Medical Necessity Statement*: Progressive respiratory failure and left lower extremity DVT Time Spent in Patient Care: less than 15 minutes Coding Level of Care Code Acute Blocking Machine Operator Second for Araceli Fwzaina Diagnoses Left leg DVT I82.402
[2020-10-24] MEDS: ipratropium-albuterol 3 mL Neb INHALATION (07:40)
--- NOTE | 2020-10-24 09:05 | PC.SOCIAL ---
IMM Update Pg. 2 of IMM provided to patient, and discussed with patient's daughter Juany over the phone as well.
[2020-10-24] MEDS: potassium chloride ER 20 mEq Tablet 40 MEQ PO ×3 (09:15→21:19)
[2020-10-24] MEDS: latanoprost 0.005% Op Soln 2.5 mL Btl 1 DROP EYE-BOTH (09:15)
[2020-10-24] MEDS: ferrous sulfate EC 325 mg Tablet PO (09:15)
[2020-10-24] MEDS: ascorbic acid 500 mg Tablet PO (09:15)
[2020-10-24] MEDS: magnesium lactate 84 mg Tablet PO ×2 (09:15→18:36)
--- NOTE | 2020-10-24 10:52 | PM.PN ---
Subjective Subjective: Interval history: He is bothered by some pain in his back, but otherwise says he is all right. States he does not want any further interventions, states he wants his pain taken care of and wants to go normally . Vitals/I&O/Wt Last Vital Signs Temp 98.5 F 10/24/20 07:09 Pulse 63 10/24/20 07:52 Resp 20 H 10/24/20 07:40 BP 103/69 10/24/20 07:09 Pulse Ox 95 10/24/20 07:42 10/23/20 10/24/20 10/24/20 22:59 06:59 14:59 Intake Total 690 / 840 710 / 1550 220 / 220 Output Total 1675 / 1675 1050 / 2725 Balance -985 / -835 -340 / -1175 220 / 220 Weight last 48 hrs Weight 95.481 kg Weight 95.799 kg Weight 90.718 kg Physical Exam Const: COMMON NORMALS: no acute distress and patient oriented x3 GENERAL APPEARANCE: frail appearing HENMT: COMMON NORMALS: oropharynx normal Neck/C-Spine: GENERAL: Yes JVD Resp: COMMON NORMALS: normal respiratory effort AUSCULTATION: diminished lung sounds Cardio: COMMON NORMALS: regular rhythm, S1 normal heart sound present, S2 normal heart sound present and No murmurs present (Cardio) RHYTHM: regular rhythm HEART SOUNDS: S1 normal heart sound present and S2 normal heart sound present GI: COMMON NORMALS: Normal to inspection, nondistended, normoactive bowel sounds present and Soft to palpation PALPATION: Yes Soft to palpation and Yes Tenderness to palpation present (GI) Extremity: COMMON NORMALS: no joint enlargement and no pedal edema Neuro: COMMON NORMALS: patient oriented x3 and moves all extremities Skin: COMMON NORMALS: no rashes or lesions noted GENERAL SKIN EXAM: no rashes or lesions noted Urinary Catheter Management^: Estrada: Cath Placed During This Visit: yes Reason for Continuing Indwelling Catheter: Other Urinary Catheter Date of Insertion: 10/15/20 Urinary Catheter Time of Insertion: 14:04 Data : 10/24/20 05:14 10/24/20 05:14 Micro: Microbiology 10/20/20 10:45 Gram Stain - Final Pleural Fluid Body Fluid Culture - Final 10/20/20 10:45 Mycobacterial Smear - Preliminary Body Fluids - Pleura 10/20/20 16:20 Urine Culture - Final Urine Catheterized A&P Assessment and plan (1) Acute respiratory failure with hypoxia: Edema appears to have improved. He still requiring 2 L of oxygen. Continues on antibiotics for pneumonia. He is generally weak. Intermittent BiPAP support, but he has been refusing this. Yesterday he had made it pretty clear that he does not want additional invasive interventions. Today he states he wants his pain control, and wants to go normally . Discussed with him and his daughter. Discussed consideration of hospice care, and both patient and daughter would like to go this route. Discussing with discharge planning. He possibly could return home with hospice, but daughter states will need to make appropriate arrangements including caregiver. Systolic congestive heart failure, EF 40% on echo 10/16. Severe pulmonary hypertension noted. Mild MVR. Mild to moderate TVR. No PE on CTA 10/16. Large esophageal hiatal hernia. DVT, at risk of PE. Not a candidate for anticoagulation, does not want additional invasive interventions including IVC filter. Moderate right pleural effusion, now status post thoracentesis 10/20. Not empyema, but looks like could be exudative. Status: Acute (2) Diastolic CHF: Status: Acute (3) Pneumonia: Status: Acute (4) Lower extremity edema: Status: Acute (5) Coronary artery disease: Status: Acute Qualifiers: Coronary Disease-Associated Artery/Lesion type: [place] artery [place] vs. transplanted heart: [place] heart Associated angina: without angina Qualified Code(s): I25.10 - Atherosclerotic heart disease of [place] coronary artery without angina pectoris (6) Atrial fibrillation: Status: Acute Qualifiers: Atrial fibrillation type: unspecified chronic Qualified Code(s): I48.20 - Chronic atrial fibrillation, unspecified (7) NSTEMI (non-ST elevated myocardial infarction): Status: Acute (8) Left leg DVT: Status: Acute (9) Anemia: Status: Acute (10) GI bleed: Status: Acute (11) Acute respiratory failure with hypoxia and hypercarbia: Status: Acute (12) Pleural effusion, right: Status: Acute (13) Delirium: Status: Acute (14) Aspiration pneumonia: Status: Acute Qualifiers: Aspiration pneumonia type: unspecified Laterality: left Lung location: unspecified part of lung Qualified Code(s): J69.0 - Pneumonitis due to inhalation of food and vomit (15) Pulmonary hypertension: Status: Acute (16) Parapneumonic effusion: Status: Acute (17) Sepsis: Status: Acute Attestations Medical Necessity Statement*: Continue admission for assessment management of pneumonia, in the setting of DVT, at risk of PE, persistent hypoxia, goals of care discussions and disposition planning and arrangements with possible return home with hospice care. Coding Level of Care Code Acute Quill Skinner for [facility] Fwd Diagnoses Acute respiratory failure with hypoxia J96.01 Diastolic CHF I50.30 Pneumonia J18.9 Lower extremity edema R60.0 Coronary artery disease I25.10 Coronary Disease-Associated Artery/Lesion type: [place] artery [place] vs. transplanted heart: [place] heart Associated angina: without angina Atrial fibrillation I48.20 Atrial fibrillation type: unspecified chronic NSTEMI (non-ST elevated myocardial infarction) I21.4 Left leg DVT I82.402 Anemia D64.9 GI bleed K92.2 Acute respiratory failure with hypoxia and hypercarbia J96.01; J96.02 Pleural effusion, right J90 Delirium R41.0 Aspiration pneumonia J69.0 Aspiration pneumonia type: unspecified Laterality: left Lung location: unspecified part of lung Pulmonary hypertension I27.20 Parapneumonic effusion J18.9; J91.8 Sepsis A41.9
--- NOTE | 2020-10-24 17:21 | PM.PN ---
Subjective Subjective: Interval history: Patient kept his eyes closed and did not answer any questions. continues to have NSVT and PVC's. Medications: Reviewed: Yes Vitals/I&O/Wt Last Vital Signs Temp 98.1 F 10/24/20 16:00 Pulse 76 10/24/20 16:00 Resp 17 10/24/20 16:00 BP 108/76 10/24/20 16:00 Pulse Ox 94 10/24/20 16:00 10/24/20 10/24/20 10/24/20 06:59 14:59 22:59 Intake Total 710 / 1550 220 / 220 100 / 320 Output Total 1050 / 2725 Balance -340 / -1175 220 / 220 100 / 320 Weight last 48 hrs Weight 210 lb 8 oz Weight 211 lb 3.2 oz Weight 200 lb Physical Exam Narrative: EXAM NARRATIVE: GENERAL: Frail elderly patient CARDIOVASCULAR SYSTEM: S1-S2 irregular. Grade 3 LLSB systolic murmur RESPIRATORY SYSTEM: Decreased breath sounds bilateral bases. + tachypnea EXTREMITIES: Trace edema. RESIN MIXER : awake Urinary Catheter Management^: Estrada: Cath Placed During This Visit: yes Reason for Continuing Indwelling Catheter: Other Urinary Catheter Date of Insertion: 10/15/20 Urinary Catheter Time of Insertion: 14:04 Data : 10/24/20 05:14 10/24/20 05:14 Micro: Microbiology 10/20/20 10:45 Gram Stain - Final Pleural Fluid Body Fluid Culture - Final A&P Assessment and plan (1) Acute respiratory failure with hypoxia: -Requiring oxygen via nasal cannula. -Management as per primary team. 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 -I do not think there is any indication or need for further cardiac work-up at this stage. -He is due for right-sided thoracentesis tomorrow hopefully that will help with his shortness of breath. -Once he is adequately diuresed and stable from respiratory standpoint, may consider outpatient stress testing at the discretion of patient's primary design engineer Dr. Alexis. -May continue with diuresis per discretion of primary care team. 10/23/20 Patient denies any chest pain and states that he is ready to give up. He is in process of selling his house. He tells me about arrangements for him and states he wants to pass away naturally. He does not want medications to put him to sleep but he does not want anything major done. He told me about his and that he is going to talk to his daughter about it. He appears better to me as compared to Friday and when I told him that, he replied I 2 months ago (since he has not been able to walk and is at [place]). I spoke to the patient and his daughter Dorinda and after detailed discussion she expressed the desire to maintain current management without being too aggressive if he goes downhill. I spoke to her about IVC filter and she declined it. This was communicated to primary team. 10/24/20 Agree with holding bumex. -resume bumex 1 mg PO BID tomorrow with lasix 40 meq BID Status: Acute Qualifiers: Heart failure type: combined systolic and diastolic Heart failure chronicity: acute on chronic Qualified Code(s): I50.43 - Acute on chronic combined systolic (congestive) and diastolic (congestive) heart failure (3) Atrial fibrillation: Off Eliquis. continue to hold off given anemia and high fall risk. Status: Acute Qualifiers: Atrial fibrillation type: unspecified chronic Qualified Code(s): I48.20 - Chronic atrial fibrillation, unspecified (4) NSTEMI (non-ST elevated myocardial infarction): Type 2 Status: Acute (5) Coronary artery disease: Mentioned in old chart. details unavailable. Status: Acute Qualifiers: Coronary Disease-Associated Artery/Lesion type: [place] artery [place] vs. transplanted heart: [place] heart Associated angina: without angina Qualified Code(s): I25.10 - Atherosclerotic heart disease of [place] coronary artery without angina pectoris Additional A&P Information Pleural effusion: S/p thoracentesis with removal of approximately 550 mL of exudative pleural fluid Mitral regurgitation and tricuspid valve regurgitation Hypokalemia: increase potassium to 40 meq TID. Normal Magnesium. Pulmonary HTN Anemia s/p PPM Thank you for allowing me to participate in patient' scare. Please feel free to call with questions or concerns. Attestations Medical Necessity Statement*: As per primary team Time Spent in Patient Care: 16 - 35 minutes (>than 50% of time spent in counselling and/or direct pt care on unit). 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 transplanted heart: [place] heart Associated angina: without angina
[2020-10-24] MEDS: lidocaine 1% 5 ML in potassium chloride premix 100 ML 50 ML IV (18:31)
[2020-10-24] MEDS: azithromycin 500 MG in sodium chloride 0.9% 250 ML 250 MG IV (20:07)
[2020-10-24] MEDS: atorvastatin 40 mg Tablet PO (21:19)
[2020-10-25] VITALS (11 sets, daily range): BP systolic 106–115; BP diastolic 62–71; PULSE 59–92; RESP 16–31; TEMP 36.4–37.3; O2SAT 93–95
[2020-10-25] MEDS: pantoprazole 40 mg SDV IVP ×2 (04:36→17:44)
[2020-10-25] MEDS: midodrine 5 mg TABLET 10 MG PO ×2 (04:37→10:32)
[2020-10-25] MEDS: sucralfate 1 gm Tablet PO (07:16)
[2020-10-25] MEDS: ipratropium-albuterol 3 mL Neb INHALATION (07:34)
[2020-10-25] MEDS: ferrous sulfate EC 325 mg Tablet PO (10:30)
[2020-10-25] MEDS: magnesium lactate 84 mg Tablet PO (10:35)
[2020-10-25] MEDS: latanoprost 0.005% Op Soln 2.5 mL Btl 1 DROP EYE-BOTH (10:38)
[2020-10-25 10:43] LABS: Basophils # 0.1 10^3/uL (0.0-0.1); Basophils % 0.3 %; Eosinophils # 0.1 10^3/uL (0.0-0.8); Eosinophils % 0.3 %; Hematocrit 33.1 % (42.0-52.0); Hemoglobin 9.8 g/dL (11.7-16.6); Lymphocytes # 0.5 10^3/uL (0.8-4.8); Lymphocytes % 2.2 %; Mean Corpuscular HGB Conc 29.6 g/dL (30.0-36.0); Mean Corpuscular Hemoglobin 28.8 pg (28.0-34.0); Mean Corpuscular Volume 97.4 fL (80-94); Mean Platelet Volume 10.7 fL (7.4-10.4); Monocytes # 1.5 10^3/uL (0.2-0.9); Monocytes % 5.9 %; Neutrophils # 22.43 10^3/uL (1.8-7.7); Neutrophils % 90.7 %; Nucleated Red Blood Cells % 0 %; Platelet Count 297 10^3/cmm (130-400); Red Cell Distribution Width 15.5 % (12.1-15.1); White Blood Count 24.7 10^3/uL (4.0-10.0)
[2020-10-25 11:07] LABS: Anion Gap 7.8 (5-19); Blood Urea Nitrogen 23 mg/dL (8-23); Calcium 7.9 mg/dL (8.5-10.5); Carbon Dioxide 40 mmol/L (22-29); Chloride 98 mmol/L (98-107); Glucose 123 mg/dL (65-115); Osmolality Calculated 299 mOsm/kg (285-295); Potassium 3.8 mmol/L (3.5-5.1); Sodium 142 mmol/L (136-145)
[2020-10-25] MEDS: vancomycin 1,250 MG/250 ML PIGGYBACK 200 MG IV (16:06)
--- NOTE | 2020-10-25 17:28 | P.PN_ITS ---
Subjective Subjective: Interval history: I am doing all right . Vitals/I&O/Wt Last Vital Signs Temp 97.7 F 10/25/20 15:13 Pulse 66 10/25/20 15:13 Resp 18 10/25/20 15:13 BP 110/71 10/25/20 15:13 Pulse Ox 94 10/25/20 15:13 10/25/20 10/25/20 10/25/20 06:59 14:59 22:59 Intake Total 180 / 1205 220 / 220 100 / 320 Output Total 900 / 900 Balance -720 / 305 220 / 220 100 / 320 Weight last 48 hrs Weight 94.937 kg Weight 95.481 kg Physical Exam Const: COMMON NORMALS: no acute distress and patient oriented x3 GENERAL APPEARANCE: frail appearing OTHER: Weak HENMT: COMMON NORMALS: oropharynx normal Neck/C-Spine: GENERAL: Yes JVD Resp: COMMON NORMALS: normal respiratory effort AUSCULTATION: diminished lung sounds Cardio: COMMON NORMALS: regular rhythm, S1 normal heart sound present, S2 norm al heart sound present and No murmurs present (Cardio) RHYTHM: regular rhythm HEART SOUNDS: S1 normal heart sound present and S2 normal heart sound present GI: COMMON NORMALS: Normal to inspection, nondistended, normoactive bowel sounds present and Soft to palpation PALPATION: Yes Soft to palpation and Yes Tenderness to palpation present (GI) Extremity: COMMON NORMALS: no joint enlargement and no pedal edema GENERAL: Yes edema (2+) Neuro: COMMON NORMALS: patient oriented x3 and moves all extremities Skin: COMMON NORMALS: no rashes or lesions noted GENERAL SKIN EXAM: no r ashes or lesions noted Urinary Catheter Management^: Estrada: Cath Placed During This Visit: yes Reason for Continuing Indwelling Catheter: Other Urinary Catheter Date of Insertion: 10/15/20 Urinary Catheter Time of Insertion: 14:04 Data : 10/25/20 10:29 10/25/20 10:29 Micro: Microbiology 10/20/20 17:08 Blood Culture - Final Blood NO GROWTH AFTER 5 DAYS A&P Assessment and plan (1) Acute respiratory failure with hypoxia: On discussion with cardiology bumetanide resumed. Continue antibiotics for pneumonia pending [facility]. Off BiPAP. Generally weak. Systolic congestive heart failure, EF 40% on echo 10/16. Severe pulmonary hypertension noted. Mild MVR. Mild to moderate TVR. No PE on CTA 10/16. Large esophageal hiatal hernia. DVT, at risk of PE. Not a candidate for anticoagulation, does not want additional invasive interventions including IVC filter. Moderate right pleural effusion, now status post thoracentesis 10/20. Not empy chris, but looks like could be exudative. Status: Acute (2) Diastolic CHF: Status: Acute (3) Pneumonia: Status: Acute (4) Lower extremity edema: Status: Acute (5) Coronary artery disease: Status: Acute Qualifiers: Coronary Disease-Associated Artery/Lesion type: [place] artery [place] vs. transplanted heart: [place] heart Associated angina: without angina Qualified Code(s): I25.10 - Atherosclerotic heart disease of [place] coronary artery without angina pectoris (6) Atrial fibrillation: Status: Acute Qualifiers: Atrial fibrillation type: unspecified chronic Qualified Code(s): I48.20 - Chronic atrial fibrillation, unspecified (7) NSTEMI (non-ST elevated myocardial infarction): Status: Acute (8) Left leg DVT: Status: Acute (9) Anemia: Status: Acute (10) GI bleed: Status: Acute (11) Acute respiratory failure with hypoxia and hypercarbia: Status: Acute (12) Pleural effusion, right: Status: Acute (13) Delirium: Status: Acute (14) Aspiration pneumonia: Status: Acute Qualifiers: Aspiration pneumonia type: unspecified Laterality: left Lung location: unspecified part of lung Qualified Code(s): J69.0 - Pneumonitis due to inhalation of food and vomit (15) Pulmonary hypertension: Status: Acute (16) Parapneumonic effusion: Status: Acute (17) Sepsis: Status: Acute Attestations Medical Necessity Statement*: Continue optimization of congestive heart failure, treatment of pneumonia, disposition arrangements, arrangements for transition to alf with hospice care. 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 transplanted heart: [place] heart Associated angina: without angina Atrial fibrillation I48.20 Atrial fibrillation type: unspecified chronic NSTEMI (non-ST elevated myocardial infarction) I21.4 Left leg DVT I82.402 Anemia D64.9 GI bleed K92.2 Acute respiratory failure with hypoxia and hypercarbia J96.01; J96.02 Pleural effusion, right J90 Delirium R41.0 Aspiration pneumonia J69.0 Aspiration pneumonia type: unspecified Laterality: left Lung location: unspecified part of lung Pulmonary hypertension I27.20 Parapneumonic effusion J18.9; J91.8 Sepsis A41.9
[2020-10-25] MEDS: azithromycin 500 MG in sodium chloride 0.9% 250 ML 250 MG IV (21:10)
[2020-10-26] VITALS (7 sets, daily range): BP systolic 100–123; BP diastolic 63–72; PULSE 66–80; RESP 16–22; TEMP 36.4–36.8; O2SAT 95–97
[2020-10-26] MEDS: pantoprazole 40 mg SDV IVP (06:22)
[2020-10-26] MEDS: bumetanide 1 mg Tablet PO (08:13)
[2020-10-26] MEDS: ascorbic acid 500 mg Tablet PO (08:13)
[2020-10-26] MEDS: ferrous sulfate EC 325 mg Tablet PO (08:13)
[2020-10-26] MEDS: latanoprost 0.005% Op Soln 2.5 mL Btl 1 DROP EYE-BOTH (08:13)
[2020-10-26] MEDS: chlorhexidine gluconate 4% Btl 118 mL 1 APPLIC TOPICAL (08:14)
[2020-10-26] MEDS: potassium chloride oral liq 20 mEq/15 mL UDC 40 MEQ PO (08:14)
[2020-10-26] MEDS: magnesium lactate 84 mg Tablet PO (08:14)
[2020-10-26 08:33] LABS: Vancomycin Trough 24.6 ug/mL (10-15)
[2020-10-26] MEDS: ipratropium-albuterol 3 mL Neb INHALATION (08:53)
[2020-10-26] MEDS: midodrine 5 mg TABLET 10 MG PO (10:30)
--- NOTE | 2020-10-26 12:19 | P.DS_ITS ---
Discharge Providers Date of Admission: 10/15/20 10:56 Date of Discharge: October 26, 2020 Attending Provider at Admission: Hunter Constantino MD Attending Provider at Discharge: Kemar Tejada Primary Care Provider: ERICKA Engel Diagnoses at Discharge Discharge Diagnosis (1) Acute respiratory failure with hypoxia: Status: Acute (2) Diastolic CHF: Status: Acute (3) Pneumonia: Status: Acute (4) Lower extremity edema: Status: Acute (5) Coronary artery disease: Status: Acute Qualifiers: Coronary Disease-Associated Artery/Lesion type: cantwell artery [place] vs. transplanted heart: cantwell heart Associated angina: without angina Qualified Code(s): I25.10 - Atherosclerotic heart disease of cantwell coronary artery without angina pectoris (6) Atrial fibrillation: Status: Acute Qualifiers: Atrial fibrillation type: unspecified chronic Qualified Code(s): I48.20 - Chronic atrial fibrillation, unspecified (7) NSTEMI (non-ST elevated myocardial infarction): Status: Acute (8) Left leg DVT: Status: Acute (9) Anemia: Status: Acute (10) GI bleed: Status: Acute (11) Acute respiratory failure with hypoxia and hypercarbia: Status: Acute (12) Pleural effusion, right: Status: Acute (13) Delirium: Status: Acute (14) Aspiration pneumonia: Status: Acute Qualifiers: Aspiration pneumonia type: unspecified Laterality: left Lung location: unspecified part of lung Qualified Code(s): J69.0 - Pneumonitis due to inhalation of food and vomit (15) Pulmonary hypertension: Status: Acute (16) Parapneumonic effusion: Status: Acute (17) Sepsis: Status: Acute Reason for Visit Reason for Visit: INDY LOWER EXT EDEMA Hospital Course Hospital Course Pleasant 85-year-old gentleman with chronic atrial fibrillation previously on chronic anticoagulation, congestive heart failure, pulmonary hypertension, mitral valve and tricuspid regurgitation, CAD, HTN, bradycardia status post pacemaker, was admitted for assessment management due to acute respiratory failure with hypoxia, with pleural effusions, asymmetric, right greater than left, lower extremity edema, treated for congestive heart failure, pneumonia with intravenous diuretics with Bumex, broad-spectrum antibiotics with Primaxin, vancomycin. With finding of DVT on venous duplex on 10/15 and distal popliteal and peroneal veins, Eliquis dose initially was increased to 5 mg twice daily. N o PE noted on CTA. Large right and small left pleural effusions, atelectasis in lung bases. Large hiatal hernia with partial intrathoracic stomach. Anasarca. However, with anticoagulation he developed GI bleeding, required 2 units. BC transfusion. Anticoagulation was withheld. He has been receiving PPI twice daily, sucralfate. Thoracic surgery was consulted for assessment for placement of IVC filter, however, respiratory status continues to decline. He was not found to be safe surgical candidate at that time, and procedure was deferred. Respiratory failure was complicated also by delirium. Antibiotic course was broadened, continue to Primaxin, vancomycin, azithromycin. Required intermittent BiPAP support. Had borderline blood pressures secondary to sepsis, received transient IV fluid support, midodrine. Was quite lethargic. With improvement in blood pressure was resumed on diuretic. Underwent thoracentesis of suspected parapneumonic effusion on 10/20 with removal of 550 mL of fluid. No empyema noted. No growth on cultures. Possible exudative etiology. Continued on antibiotics. Respiratory status stabilized, wean down on oxygen requirement 2 L nasal cannula where he currently remains over the last several days. Weaned off BiPAP support requirement. Additional assessment management was revisited with him and his daughter, including placement of IVC filter, as well as further consideration of additional endoscopic evaluation due to GI bleeding, need for long-term anticoagulation with DVT, atrial fibrillation. He has unequivocally declined any additional or invasive interventions, being clear he does not want anything else major done, wanting rather nature to take its course. Multiple discussions were had with him and his daughter with regards to additional goals of care, and disposition planning. They had preferred continued care with hospice, and he will be initiated on this on transfer to shelter facility. Continue oxygen as needed for comfort, Estrada in place. He does have a pacemaker, per discussion with cardiology it was thought it may be more uncomfortable for him to disengage this currently, rather than at a time when his passing would be imminent. Physical Exam Const: COMMON NORMALS: no acute distress, patient oriented x3 and alert GENERAL APPEARANCE: frail appearing ORIENTATION/CONSCIOUSNESS: Yes awake OTHER: Hard of hearing. Converses when spoken with loudly. HENMT: COMMON NORMALS: oropharynx normal Neck/C-Spine: COMMON NORMALS: no JVD Resp: COMMON NORMALS: normal respiratory effort and clear to auscultation bilaterally (better air entry) AUSCULTATION: clear to auscultation bilaterally (better air entry) Cardio: COMMON NORMALS: no JVD, regular rhythm, S1 normal heart sound present, S2 normal heart sound present and No murmurs present (Cardio) RHYTHM: regular rhythm HEART SOUNDS: S1 normal heart sound present and S2 normal heart sound present GI: COMMON NORMALS: Normal to inspection, nondistended, normoactive bowel sounds present, Soft to palpation and non-tender PALPATION: Yes Soft to palpation Extremity: COMMON NORMALS: no joint enlargement GENERAL: Yes edema (trace) Neuro: COMMON NORMALS: patient oriented x3 and moves all extremities SENSORIUM/ORIENTATION: Yes alert Skin: COMMON NORMALS: no rashes or lesions noted GENERAL SKIN EXAM: no rashes or lesions noted Urinary Catheter Management^: Estrdaa: Cath Placed During This Visit: yes Reason for Continuing Indwelling Catheter: Assist healing open wound Urinary Catheter Date of Insertion: 10/15/20 Urinary Catheter Time of Insertion: 14:04 Discharge Data Data Completed and Pending: Completed Studies During Hospitalization Category Date Time Status CT angio chest PE protcl [id number] Stat Cat Scan 10/16/20 09:06 Completed XR chest 1V dennys ble [id number] Routine Exams 10/19/20 11:40 Completed XR chest 1V dennys ble [id number] Routine Exams 10/20/20 07:00 Completed XR chest 1V dennys ble [id number] Routine Exams 10/21/20 07:00 Completed XR chest 1V dennys ble [id number] Routine Exams 10/22/20 07:00 Completed XR chest 1V dennys ble [id number] Stat Exams 10/15/20 09:27 Completed XR chest 1V dennys ble [id number] Stat Exams 10/20/20 10:46 Completed XR knee LT 1-2V 7 3560 Routine Exams 10/18/20 10:10 Completed XR knee RT 1-2V 7 3560 Routine Exams 10/15/20 13:34 Completed CV echo complete* [id number] Routine Ultrasound 10/15/20 13:18 [place] [id number] Routin e Ultrasound 10/15/20 13:35 Completed US thoracentesis [id number] Routine Ultrasound 10/20/20 12:00 Completed Pending at discharge Category Date Time Status Mycobacteria, Cul ture w/Fluor Routi ne Lab 10/20/20 10:[address] at Lab 10/15/20 13:18 Uncollected Sputum Culture an d Gram Stain Stat Lab 10/20/20 14:12 Uncollected Cytology [PTH] Ro utine Pth 10/19/20 12:31 Received Labs from last 24 hours 10/26/20 07:47 Vancomycin Trough 24.6 H Vitals: Last Vital Signs Temp 97.5 F L 10/26/20 12:00 Pulse 74 10/26/20 12:00 Resp 17 10/26/20 12:00 BP 123/72 10/26/20 12:00 Pulse Ox 97 10/26/20 12:00 Discharge Plan Discharge Patient Disposition: Hospice - Medical Facility Condition: Stable Prescriptions: New pantoprazole 40 mg tablet,delayed release (DR/EC) 40 mg PO DAILY 42 Days Qty: 45 RF: 0 atorvastatin 40 mg Tablet 40 mg PO BEDTIME Qty: 30 RF: 0 levofloxacin 750 mg tablet 750 mg PO DAILY 2 Days RF: 0 Continued latanoprost 0.005 % drops 1 drp ophthalmic (eye) DAILY@0800 RF: 0 multivitamin Tablet 1 tab PO DAILY@0800 RF: 0 omega-3 fatty acids 1,000 mg capsule 1,000 mg PO DAILY@0800 RF: 0 ascorbic acid (vitamin C) 500 mg tablet 500 mg PO DAILY@0800 RF: 0 furosemide 40 mg tablet See Rx Instructions .ROUTE .COMPLEX Qty: 45 RF: 1 ferrous sulfate 325 mg (65 mg iron) Tablet 325 mg PO DAILY@0800 RF: 0 acetaminophen 500 mg PO Q8H RF: 0 Metamucil 3.4 gram/5.4 gram Powder 1 tbsp PO DAILY@0800 RF: 0 Changed potassium chloride [Klor-Con M20] 20 mEq tablet,ER particles/crystals 40 meq PO BID Qty: 0 RF: 0 Discontinued Levaquin 750 mg Tablet 750 mg PO Q2D RF: 0 amlodipine 5 mg tablet 5 mg PO DAILY@0800 RF: 0 Eliquis 2.5 mg Tablet 2.5 mg PO BID@0800,1999 RF: 0 Discharge Orders: Discharge Order (Routine); Ordered 10/26/20 Ordered By: Kemar Tejada Referrals: [facility] [Outside] Cassie Gillette FNP [Primary Care Provider] - 1 week Discharge Diet: As Directed Discharge Activity: Increase activity as tolerated and Oxygen as instructed Patient Instructions: Opioid Safety Activity Restrictions/Additional Instructions: Hospice care. Does not want any further aggressive medical management. Maintain Estrada in place for comfort. Please be aware that he has a pacemaker. Continue oxygen 2 L by nasal cannula as needed. Dysphagia level 1 diet, pur?ed. Otherwise no restrictions. Peanut butter and jelly sandwiches per her request. Reposition frequently to prevent pressure wounds. Discharge Attestations Time Spent in Discharge Care*: greater than 30 min Quality Metrics Clinical Quality Measures During this hospital stay, did patient experience: VTE Contraindication to Overlap Therapy: Medical contraindication VTE Discharge Education: Other Coding Level of Care Code Acute g FW DC note Diagnoses Acute respiratory failure with hypoxia J96.01 Diastolic CHF I50.30 Pneumonia J18.9 Lower extremity edema R60.0 Coronary artery disease I25.10 Coronary Disease-Associated Artery/Lesion type: cantwell artery [place] vs. transplanted heart: cantwell heart Associated angina: without angina Atrial fibrillation I48.20 Atrial fibrillation type: unspecified chronic NSTEMI (non-ST elevated myocardial infarction) I21.4 Left leg DVT I82.402 Anemia D64.9 GI bleed K92.2 Acute respiratory failure with hypoxia and hypercarbia J96.01; J96.02 Pleural effusion, right J90 Delirium R41.0 Aspiration pneumonia J69.0 Aspiration pneumonia type: unspecified Laterality: left Lung location: unspecified part of lung Pulmonary hypertension I27.20 Parapneumonic effusion J18.9; J91.8 Sepsis A41.9
[2020-10-26 14:20] LABS: SARS Covid-2 Antigen Negative (Negative)
--- NOTE | 2020-10-26 14:29 | PC.SOCIAL ---
IMM Updated Updated pt on Pg 2 IMM. No questions voiced. Provided pt a copy. Initialed, dated, & timed copy in chart.
== END 2020-10-26 14:58 | disposition hospice, inpatient (51) | DRG 871 ==
LOC: ER 10:49 → MEDSURG 11:09
PROVIDERS: Internal Medicine Cardiovascular Disease; Admitting Provider Family Medicine; Emergency Provider Emergency Medicine; PCP Registered Nurse; Visit Provider Internal Medicine
DX: A41.9 Sepsis, unspecified organism (principal); J96.01 Acute respiratory failure with hypoxia; I50.43 Acute on chronic combined systolic (congestive) and diastolic (congestive) heart failure; I21.A1 Myocardial infarction type 2; J69.0 Pneumonitis due to inhalation of food and vomit; J96.02 Acute respiratory failure with hypercapnia; I82.432 Acute embolism and thrombosis of left popliteal vein; I82.452 Acute embolism and thrombosis of left peroneal vein; F05 Delirium due to known physiological condition; K92.2 Gastrointestinal hemorrhage, unspecified; I48.20 Chronic atrial fibrillation, unspecified; J98.11 Atelectasis; J90 Pleural effusion, not elsewhere classified; I11.0 Hypertensive heart disease with heart failure; I27.20 Pulmonary hypertension, unspecified; I25.10 Atherosclerotic heart disease of native coronary artery without angina pectoris; D50.9 Iron deficiency anemia, unspecified; M22.01 Recurrent dislocation of patella, right knee; K44.9 Diaphragmatic hernia without obstruction or gangrene; H91.93 Unspecified hearing loss, bilateral; Z96.653 Presence of artificial knee joint, bilateral; Z79.01 Long term (current) use of anticoagulants; Z66 Do not resuscitate; Z87.891 Personal history of nicotine dependence; Z79.82 Long term (current) use of aspirin; Z95.0 Presence of cardiac pacemaker; I08.1 Rheumatic disorders of both mitral and tricuspid valves; I83.93 Asymptomatic varicose veins of bilateral lower extremities; E87.6 Hypokalemia; I95.9 Hypotension, unspecified; T45.515A Adverse effect of anticoagulants, initial encounter
CPT/HCPCS: 32555; 36415; 36416; 36430; 36600; 51702; 71045; 71275; 73560; 80048; 80053; 80061; 80202; 80500; 81003; 82042; 82150; 82274; 82570; 82607; 82728; 82746; 82803; 82945; 82962; 83540; 83605; 83615; 83735; 83880; 83986; 84100; 84145; 84157; 84443; 84478; 84484; 85014; 85018; 85025; 85045; 85610; 85730; 86140; 86403; 86850; 86900; 86920; 87015; 87040; 87070; 87075; 87086; 87116; 87205; 87206; 87426; 87641; 87801; 88305; 89050; 92523; 92526; 92610; 93005; 93306; 93970; 94640; 94660; 94664; 96365; 96367; 96375; 97110; 97161; 97167; 97530; 97535; 99285; C9113; J0456; J0696; J0743; J1940; J3370; J3480; J3490; J3535; J7050; P9016; Q0144; Q9967; S0030